=== PATIENT | female | born 1945 | race Caucasian/White ===

== ENCOUNTER 2020-03-11 09:03 | Inpatient (IN) | payer MEDICARE, OTHER ==
[2020-03-11] VITALS (15 sets, daily range): BP systolic 117–154; BP diastolic 57–74
[~2020-03-11] VITALS: Ht 165.1 cm; Wt 68.0 kg
[~2020-03-11 09:03] MED LIST: ceFAZolin sod 1 GM in NS 55 ML IVPB ONE
[2020-03-11] MEDS ORDERED: LR 1000ml 1,000 ML IVLG SCH (11:41)
[2020-03-11] MEDS ORDERED: Labetalol 5mg/ml 20ml vial IV PRN (11:45)
[2020-03-11] MEDS ORDERED: Hydromorphone 0.5mg/0.5ml inj IVP PRN ×2 (11:45→17:15)
[2020-03-11] MEDS ORDERED: DiphenhydrAMINE 50mg/ml Inj IVP PRN ×2 (11:45→17:15)
[2020-03-11] MEDS ORDERED: Meperidine 25mg/0.5ml Inj (FOR RIGORS ONLY) IV PRN (11:45)
[2020-03-11] MEDS ORDERED: Atropine Sulfate 0.4mg/ml inj IVP PRN (11:45)
[2020-03-11] MEDS ORDERED: fentaNYL 100 mcg/2 mL IV PRN (11:45)
[2020-03-11] MEDS ORDERED: oxyCODONE HCL/Acetaminophen 5/325mg ORAL PRN (11:45)
[2020-03-11] MEDS ORDERED: Metoclopramide 10mg/2ml Inj IVP PRN (11:45)
[2020-03-11] MEDS ORDERED: LORazepam Inj 2mg/ml 1ml IV PRN ×2 (11:45→17:45)
[2020-03-11] MEDS ORDERED: HYDROcodone/Acetamin 5/325 tab ORAL PRN (11:45)
[2020-03-11] MEDS ORDERED: Ketorolac 30mg Inj IV PRN ×2 (11:45)
[2020-03-11] MEDS ORDERED: Midazolam 2mg/2ml Inj IVP PRN (11:45)
[2020-03-11] MEDS ORDERED: HYDROcodone/Acetamin 7.5/325 tab ORAL PRN (11:45)
[2020-03-11] MEDS ORDERED: Acetaminophen (Non formulary) 100 ML IV ONE (11:45)
--- NOTE | 2020-03-11 11:56 | Pre-Procedure Note/Attestation ---
Pre-Procedure Note/Attestation Complete Prior to Procedure Planned Procedure: not applicable Procedure Narrative: partial cystectomy, cystoscopy Indications for Procedure Pre-Operative Diagnosis: colovesical fistulae Attestation I attest that I discussed the nature of the procedure; its benefits; risks and complications; and alternatives (and the risks and benefits of such alternatives ), prior to the procedure, with the patient (or the patient's legal electroplating sales representative). I attest that, if there was a reasonable possibility of needing a blood transfusion, the patient (or the patient's legal electroplating sales representative) was given the [facility] standardized written summary, pursuant to the [place] Blood Safety Act ([place] Health and Safety Code # 1645, as amended). I attest that I re-evaluated the patient just prior to the surgery and that there has been no change in the patient's H&P, except as documented below: Rodríguez Ferguson MD Mar 11, 2020 11:56
--- NOTE | 2020-03-11 12:01 | Brief Operative Note ---
Immediate Post Operative Note Operative Note Pre-op Diagnosis: colovesical fistulae Procedure: partial cystectomy Post-op Diagnosis: same Post-op Diagnosis: same as pre-op Surgeon: andrés ferguson Flying Shear Operator: kate castano Anesthesia: general Specimen: none Complications: none Condition: stable Fluids: 1000 Estimated Blood Loss: minimal Implant(s) used?: No Rodríguez Ferguson MD Mar 11, 2020 12:01
--- NOTE | 2020-03-11 12:07 | Immediate Post-Op Evaluation ---
Immediate Post-Op Evalulation Immediate Post-Op Evalulation Procedure: Partial Cystectomy, Colon Resection Date of Evaluation: Mar 11, 2020 Time of Evaluation: 13:29 IV Fluids: 900 LR Blood Products: 0 Estimated Blood Loss: 75 Urinary Output: 100 Blood Pressure Systolic: 148 Blood Pressure Diastolic: 72 Pulse Rate: 75 Respiratory Rate: 16 O2 Sat by Pulse Oximetry: 100 Temperature (Fahrenheit): 98.3 Pain Score (1-10): 2 Nausea: No Vomiting: No Complications 0 Patient Status: awake, reacts, patent, extubated, none Hydration Status: adequate Dru Gram Ancef IV Given Within 1 Hr of Incision: Yes Time Given: 13:01 Shimon Muñiz MD Mar 11, 2020 12:07
[2020-03-11] MEDS ORDERED: Sodium Chloride 10ml vial INJ ONE (12:15)
[2020-03-11] MEDS ORDERED: Lidocaine 1% MPF 10mg/ml 5ml ONE ×2 (12:15→12:43)
[2020-03-11] MEDS ORDERED: fentaNYL 100 mcg/2 mL IV ONE (12:20)
[2020-03-11] MEDS ORDERED: Midazolam 2mg/2ml Inj ONE (12:20)
[2020-03-11] MEDS ORDERED: Rocuronium Bromide 100mg/10ml Inj IV ONE (12:30)
[2020-03-11] MEDS ORDERED: Sterile Water Irrig 1000ml IRRIG ONE (12:30)
[2020-03-11] MEDS ORDERED: ProvayBlue 5mg/ml 10ml amp INJ ONE (12:30)
[2020-03-11] MEDS ORDERED: LR 1000ml ONE (12:30)
[2020-03-11] MEDS ORDERED: NS Irrig 4000ml IRRIG ONE ×2 (12:30→14:31)
--- NOTE | 2020-03-11 12:41 | Anethesia Preoperative Eval ---
Anesthesia Pre-op PMH/ROS General Date of Evaluation: Mar 11, 2020 Time of Evaluation: 12:26 Anesthesiologist: Antonino ASA Score: ASA 3 Mallampati Score Class I : Soft palate, uvula, fauces, pillars visible Class II: Soft palate, uvula, fauces visible Class III: Soft palate, base of uvula visible Class IV: Only hard plate visible Mallampati Classification: Class II Surgeon: Phyllis Diagnosis: ABD Pain Surgical Procedure: Partial Cystectomy, Colon Resection Anesthesia History: none Family History: no anesthesia problems Allergies: Coded Allergies: No Known Allergies (Unverified , 03/10/20) Medications: see eMAR Patient NPO?: Yes Past Medical History Cardiovascular: Reports: HTN Gastrointestinal/Genitourinary: Reports: other - Gastric Sx, UTI HEENT: Reports: cataract (L), cataract (R) Musculoskeletal/Integumentary: Reports: OA PSxH Narrative: Umbilical Hernia Repair Anesthesia Pre-op Phys. Exam Physician Exam Vital Signs Date Time Temp Pulse Resp B/P (MAP) Pulse Ox O2 Delivery O2 Flow Rate FiO2 03/11/20 12:48 97.8 63 18 141/73 (95) 96 Constitutional: NAD Neurologic: CN 2-12 intact Cardiovascular: RRR Respiratory: CTA Gastrointestinal: S/NT/ND Airway Exam Mallampati Score: Class II MO: full ROM: limited Teeth: missing, intact Anesthesia Pre-op A/P Risk Assessment & Plan Assessment: ASA 3 Plan: GA, SED, GlideScope Status Change Before Surgery: No Pre-Antibiotics Dru Gram Ancef IV Given Within 1 Hr of Incision: Yes Time Given: 13:01 Shimon Muñiz MD Mar 11, 2020 12:41
--- NOTE | 2020-03-11 12:45 | NUR ---
Unable to start IVF. Dr. Muñiz in surgery notified.
--- NOTE | 2020-03-11 13:06 | Pre-Procedure Note/Attestation ---
Pre-Procedure Note/Attestation Complete Prior to Procedure Planned Procedure: not applicable Procedure Narrative: colectomy Indications for Procedure Pre-Operative Diagnosis: colon fistula Attestation I attest that I discussed the nature of the procedure; its benefits; risks and complications; and alternatives (and the risks and benefits of such alternatives ), prior to the procedure, with the patient (or the patient's legal textile machinery sales representative). I attest that, if there was a reasonable possibility of needing a blood transfusion, the patient (or the patient's legal textile machinery sales representative) was given the [facility] standardized written summary, pursuant to the [place] Blood Safety Act ([place] Health and Safety Code # 1645, as amended). I attest that I re-evaluated the patient just prior to the surgery and that there has been no change in the patient's H&P, except as documented below: Rafiq Rodriguez Mar 11, 2020 13:06
[2020-03-11] MEDS ORDERED: Lidocaine 1% Plain 30 ml INJ ONE ×2 (13:07→14:33)
[2020-03-11] MEDS ORDERED: Glycopyrrolate 0.2mg/ml 1ml Vial ONE (14:47)
[2020-03-11] MEDS ORDERED: Neostigmine 1mg/ml 10ml Inj ONE (14:47)
[2020-03-11] MEDS ORDERED: ASPIR 8181 MG ORAL (15:03)
[2020-03-11] MEDS ORDERED: TOVIAZ8 MG PO (15:05)
[2020-03-11] MEDS ORDERED: KLONOPIN0.5 MG ORAL (15:05)
[2020-03-11] MEDS ORDERED: SYNTHROID100 MCG ORAL (15:06)
[2020-03-11] MEDS ORDERED: KEPPRA1000 MG ORAL (15:07)
[2020-03-11] MEDS ORDERED: NITROFURANTOIN100 M2 ORAL (15:08)
[2020-03-11] MEDS ORDERED: AMBIEN10 MG ORAL (15:08)
--- NOTE | 2020-03-11 17:00 | NUR ---
NURSE NOTES: pt arrived to the via hospital bed escorted by surgery nurse Keysha Palomino RN, pt in stable condition A/Ox4 breaths regular un labored on room Vitals BP 141/74 HR 74 O2sat 98 T 97.7
--- NOTE | 2020-03-11 17:13 | Brief Operative Note ---
Immediate Post Operative Note Operative Note Pre-op Diagnosis: colon fistula Procedure: 1 exploratory laparotomy 2 sigmoid colectomy 3 open lyse adhesions for partial omentectomy 5 mobilization of splenic flexure Post-op Diagnosis: same as pre-op Surgeon: Rafiq Rodriguez MD Additional Surgeons: Rodríguez jain Anesthesia: general Specimen: yes Complications: none Condition: stable Fluids: See records Estimated Blood Loss: minimal Drains: none Implant(s) used?: No Rafiq Rodriugez Mar 11, 2020 17:13
[2020-03-11] MEDS: HYDROmorphone 1mg/ml Carpuject IVP PRN (18:09)
[2020-03-11] MEDS: D5 1/2NS w/KCl 20mEq 1,000 ML IV SCH (18:10)
--- NOTE | 2020-03-11 18:30 | NUR ---
NURSE NOTES: Pt remains stable s/p surgery ,family by the bedside , PT has IVF on the R EJ 18G with IVF, patent asymptomatic pt has a ABD dressing clean intact no s/o of bleeding , and peripad dry, no bleeding , belongings verified and signed by pt, pt home meds given to son, and pt's money given to son, side rails padded for seizure precaution, bed in low locked position, call light with in Reach, will continue to monitor
[2020-03-11] MEDS: Piperacillin/Tazobactam 3.375 GM in NS 110 ML IVPB SCH (19:30)
--- NOTE | 2020-03-11 19:55 | NUR ---
HAND-OFF: Report given to José ROLDAN.
--- NOTE | 2020-03-11 23:00 | Operative Note - Dictated ---
DATE OF OPERATION: 03/11/2020 PREOPERATIVE DIAGNOSES: Colovesicular fistula, history of sigmoid diverticulitis. POSTOPERATIVE DIAGNOSES: Colovesicular fistula, sigmoid diverticula. OPERATION PERFORMED: 1. Exploratory laparotomy. 2. Sigmoid colectomy. 3. Open lysis of adhesions. 4. Partial omentectomy. 5. Mobilization of splenic flexure. ATTENDING SURGEON: Rafiq Rodriguez MD. ADDITIONAL SURGEON: Dr. Rodríguez Ferguson who performed the partial cystectomy. ANESTHESIOLOGIST: Shimon Muñiz M.D. ANESTHESIA: General GETA. ESTIMATED BLOOD LOSS: Minimal. IV FLUIDS: Please see anesthesia records. COMPLICATIONS: None. DRAINS: None. COUNTS: Sponge and needle count correct x2. WOUND CLASSIFICATION: Class 3. SPECIMENS: 1. Sigmoid colon. 2. Omentum. 3. Donuts from EEA anastomosis. IMPLANTS: None. INDICATIONS FOR PROCEDURE: This is a 74-year-old female who was identified to have sigmoid diverticula as well as history of potential perforated with a colovesicular fistula. She was scoped by Dr. Rodríguez Ferguson, which identified a fistula in the bladder wall and patient was symptomatic with UTIs, pain, discomfort, and therefore was recommended for a resection with repair of fistula, which was scheduled and planned for 03/11/2020. Risks, benefits, alternatives discussed with patient and family in detail and consent was obtained. Dr. Rodriguez, myself was planned for colectomy, entry in the abdomen given patient's multiple prior incisions, lysis of adhesions, and colonic portion of the procedure and Dr. Rodríguez Ferguson planned for repair and resection of the bladder as necessary for the fistula. Consent was obtained. Patient was scheduled for 03/11/2020. OPERATIVE NOTE: Patient was taken to the operating room and placed on the operating table in supine position with bilateral arms out. Preoperative time-out taken to identify patient, procedure, operative staff, and surgical staff. General anesthesia was induced. Patient was intubated. The abdomen was clipped, prepped, and draped in standard surgical fashion. The patient was placed in lithotomy position prior to draping. A Wooten catheter was inserted using standard sterile technique. Patient was identified to have multiple prior abdominal incisions and scars. Decision was made to proceed with great caution. Midline incision was made from what was believed to be the prior umbilicus down to the pubic symphysis. Incision was carried down through subcutaneous tissue and to the fascia with electrocautery. The capsule was incised and the abdomen was entered. Significant adhesions were identified and open lysis of adhesions were performed to allow the omentum and bowel to dissect away from the abdominal wall. Once this was completed, the omentum that was fairly matted to the anterior abdominal wall resected with Thunderbeat energy device. This partial omentectomy was sent to pathology for review. The small bowel was then positioned to the right upper quadrant. Bookwalter retractor was placed and the sigmoid colon was identified. The descending colon was otherwise healthy, but at the level of the sigmoid colon, there was diverticula noticed and dense area of scarring and fibrosis in the left pelvic brim. This was abutting the dome of the bladder, which was identified on CT scan prior to likely contained colovesicular fistula, which was also confirmed via cystoscopy by Dr. Ferguson. At this time, the white line of Toldt was incised and released. The sigmoid colon was mobilized down to its mesenteric pedicle. Dissection was carried down towards the peritoneal reflection inferiorly where the colon at the peritoneal reflection was otherwise healthy. With the assistance of Dr. Ferguson, the fistula was divided from the bowel and dissected down and the bowel was released from the dome of the bladder. A partial cystectomy and repair of dome bladder was completed by Dr. Ferguson. Please see his operative report. Once this portion of procedure was completed, a resection was indicated and recommended. The proximal portion of the sigmoid colon was identified without diverticula and healthy. Window was made in the mesentery. A linear 55 mm stapler was used and the bowel was divided in the descending colon. The mesentery was divided using Thunderbeat energy device down towards the peritoneal reflection. Ureters were identified and protected throughout the procedure. At the peritoneal reflection, the bowel was circumferentially dissected out and divided and a portion of healthy viable bowel edges with a linear 55 mm stapler. The specimen of sigmoid colon was sent to pathology for review. For improved mobilization and tension-free anastomosis, the towards the splenic flexure and most of it was mobilized. Once enough mobility was identified, we were able to comfortably bring it for a primary anastomosis. The proximal staple line of descending colon was excised and a 20 mm Anvil EEA stapler was inserted. A pursestring suture was placed and angle prepared. I myself went down through the anus and the anus was inspected. Digital rectal exam prior and appropriate for stapler, but did have some increased sphincter tone. A 20 mm EEA stapler was inserted through the anus and brought out through the peritoneal reflection. A N2 anterior side anastomosis was performed without tension or complication. The proximal bowel was held and occluded and air insufflation test performed with water in the pelvis. No leak was identified. At this time, the colon was desufflated and the pelvis irrigated and cleansed. Anastomosis was visualized and noted to be healthy viable without complication. At this time, we began the conclusion of our procedure. The retractors removed out of place. The abdomen inspected. Sponge and needle count correct identified and we proceeded to our closure. The fascia was reapproximated using #0 PDS running suture. Subcutaneous tissues was cleansed. Hemostasis obtained and reapproximated at the skin level using surgical bernice. Dressings were applied. Patient tolerated the procedure well, was extubated, and taken to postanesthetic care unit in stable condition. Rafiq Rodriguez M.D. DR: CLIFFORD JOB#: [id number] CC:
[2020-03-12] VITALS: BP 121/55
[2020-03-12] MEDS: D5 1/2NS w/KCl 20mEq 1,000 ML IV SCH ×2 (03:30→15:23)
[2020-03-12 04:00] VITALS: BP 110/58
[2020-03-12] MEDS: Piperacillin/Tazobactam 3.375 GM in NS 110 ML IVPB SCH ×3 (05:13→21:22)
[2020-03-12 05:26] LABS: BASOPHILS % (AUTO) 0.3 % (0.0-2.0); HEMOGLOBIN 10.7 G/DL (12.0-16.0); LYMPHOCYTES % (AUTO) 11.3 % (20.0-45.0); MEAN CORPUSCULAR VOLUME 99 FL (80-99); NEUTROPHILS % (AUTO) 80.4 % (45.0-75.0); PLATELET COUNT 155 K/UL (150-450); RED BLOOD COUNT 3.24 M/UL (4.20-5.40); RED CELL DISTRIBUTION WIDTH 12.5 % (11.6-14.8); WHITE BLOOD COUNT 10.1 K/UL (4.8-10.8)
[2020-03-12 05:28] LABS: ANION GAP 6 mmol/L (5-15); BLOOD UREA NITROGEN 12 mg/dL (7-18); CALCIUM 7.5 MG/DL (8.5-10.1); CARBON DIOXIDE 25 MMOL/L (21-32); CHLORIDE 113 MMOL/L (98-107); CREATININE 0.8 MG/DL (0.55-1.30); POTASSIUM 3.7 MMOL/L (3.5-5.1); SODIUM 144 MMOL/L (136-145)
[2020-03-12] MEDS: HYDROmorphone 1mg/ml Carpuject IVP PRN ×3 (06:54→21:23)
--- NOTE | 2020-03-12 07:07 | NUR ---
NURSE NOTES: Report received from José ROLDAN, rounds made. Patient sleeping in semi-fowlers position in bed. No distress on RA, respirations even/unlabored. Zosyn IV and IVF (D5 1/2 +20 KCL at 100 ml) infusing to right jugular, site asymptomatic. Bilateral SCDs on. FC yellow/cloudy output noted, will notify MD. Abdominal dressing CDI. Call light in reach, bed in lowest position, will continue to monitor.
--- NOTE | 2020-03-12 07:40 | NUR ---
HAND-OFF: Report given to YULI Acosta. Patient in stable condition.
[2020-03-12 07:56] VITALS: BP 113/58
--- NOTE | 2020-03-12 08:30 | NUR ---
NURSE NOTES: Patient up ambulating with RN in halls x2, gait steady, slow. Denies dizziness/SOB/NV/pain. Dr. Ferguson notified and observed FC output at bedside, urine y/cl in tubing, slightly cloudiness in drainage bag. IS provided/demonstrated/instructed on, patient inspires 1000 ml, returned demonstration correctly, will continue to encourage.
--- NOTE | 2020-03-12 08:34 | 48 Hour Post Anesthesia Eval ---
Post Anesthesia Evaluation Procedure: Partial Cystectomy, Colon Resection Date of Evaluation: Mar 12, 2020 Time of Evaluation: 08:33 Blood Pressure Systolic: 128 0: 72 Pulse Rate: 68 Respiratory Rate: 18 Temperature (Fahrenheit): 97.7 O2 Sat by Pulse Oximetry: 98 Airway: patent Nausea: No Vomiting: No Pain Intensity: 2 Hydration Status: adequate Cardiopulmonary Status: stable Mental Status/LOC: patient returned to baseline Follow-up Care/Observations: n/a Post-Anesthesia Complications: none Follow-up care needed: N/A John Ferraro MD Mar 12, 2020 08:34
[2020-03-12] MEDS ORDERED: levETIRAcetam 1,000mg/NS100ml 100 ML IVPB SCH (09:00)
[2020-03-12] MEDS ORDERED: Heparin 5000 units/ml inj SUBQ SCH (11:00)
--- NOTE | 2020-03-12 11:10 | NUR ---
P.T Note: P.T evaluation completed and tx initiated. Please refer to P.T evaluation for current functional status.
[2020-03-12 11:56] VITALS: BP 115/59
[2020-03-12] MEDS: clonazePAM 0.5mg tab ORAL SCH ×2 (12:33→18:43)
[2020-03-12] MEDS: Heparin 5000 units/ml inj SUBQ SCH ×2 (12:33→21:22)
--- NOTE | 2020-03-12 13:02 | Surgery Progress Note ---
Surgery Progress Note Subjective Procedure Performed 1 exploratory laparotomy 2 sigmoid colectomy 3 open lyse adhesions for partial omentectomy 5 mobilization of splenic flexure Symptoms: improved, pain decreased Objective Last 24 Hour Vital Signs Date Time Temp Pulse Resp B/P (MAP) Pulse Ox O2 Delivery O2 Flow Rate FiO2 03/12/20 11:56 98.4 75 18 115/59 (77) 97 03/12/20 08:34 68 18 98 03/12/20 07:56 98.9 76 18 113/58 (76) 96 03/12/20 04:00 98.6 79 17 110/58 (75) 96 03/12/20 00:00 98.6 83 16 121/55 (77) 95 03/11/20 21:00 Room Air 03/11/20 20:00 98.8 79 18 117/57 (77) 95 03/11/20 18:21 Nasal Cannula 3.0 03/11/20 18:00 97.8 74 21 138/72 (94) 97 03/11/20 17:30 97.1 74 19 141/73 (95) 97 03/11/20 17:00 97.9 66 18 135/66 100 Nasal Cannula 3 03/11/20 16:58 97.7 71 20 141/74 (96) 97 03/11/20 16:45 63 17 137/64 100 Nasal Cannula 3 03/11/20 16:30 67 13 143/68 100 Nasal Cannula 3 03/11/20 16:20 97.9 03/11/20 16:10 68 18 143/66 100 Nasal Cannula 3 03/11/20 15:55 64 12 143/67 100 Nasal Cannula 3 03/11/20 15:40 63 23 146/70 100 Nasal Cannula 3 03/11/20 15:30 67 13 154/73 100 Simple Mask 6 03/11/20 15:20 68 17 153/72 100 Simple Mask 6 03/11/20 15:15 74 16 153/72 100 Simple Mask 6 03/11/20 15:14 75 16 100 03/11/20 15:11 97.9 72 14 148/72 100 Simple Mask 6 I&O Intake and Output 03/11/20 03/12/20 19:00 07:00 Intake Total 1200 ml Output Total 375 ml 600 ml Balance 825 ml -600 ml Intake Oral 0 ml IV Total 1200 ml Output Urine Total 300 ml 600 ml Estimated Blood Loss 75 ml # Voids 1 1 Dressing: dry Wound: clean Cardiovascular: RSR Respiratory: clear Abdomen: soft, non-tender, present bowel sounds Extremities: no edema, no tenderness, no cyanosis Laboratory Tests Test 03/12/20 04:55 White Blood Count 10.1 K/UL (4.8-10.8) Red Blood Count 3.24 M/UL (4.20-5.40) L Hemoglobin 10.7 G/DL (12.0-16.0) L Hematocrit 32.0 % (37.0-47.0) L Mean Corpuscular Volume 99 FL (80-99) Mean Corpuscular Hemoglobin 33.0 PG (27.0-31.0) H Mean Corpuscular Hemoglobin Concent 33.4 G/DL (32.0-36.0) Red Cell Distribution Width 12.5 % (11.6-14.8) Platelet Count 155 K/UL (150-450) Mean Platelet Volume 8.5 FL (6.5-10.1) Neutrophils (%) (Auto) 80.4 % (45.0-75.0) H Lymphocytes (%) (Auto) 11.3 % (20.0-45.0) L Monocytes (%) (Auto) 8.0 % (1.0-10.0) Eosinophils (%) (Auto) 0.0 % (0.0-3.0) Basophils (%) (Auto) 0.3 % (0.0-2.0) Sodium Level 144 MMOL/L (136-145) Potassium Level 3.7 MMOL/L (3.5-5.1) Chloride Level 113 MMOL/L (98-107) H Carbon Dioxide Level 25 MMOL/L (21-32) Anion Gap 6 mmol/L (5-15) Blood Urea Nitrogen 12 mg/dL (7-18) Creatinine 0.8 MG/DL (0.55-1.30) Estimat Glomerular Filtration Rate > 60 mL/min (>60) Glucose Level 169 MG/DL (74-106) H Calcium Level 7.5 MG/DL (8.5-10.1) L Plan Problems: (1) Colonic fistula Assessment & Plan: doing well post op ambulatory miller to stay in given surgery npo iv fluids rx as written incentive spirometry ambulate and out of bed Benyamini,Rafiq Mar 12, 2020 13:02
--- NOTE | 2020-03-12 13:07 | NUR ---
CASE MANAGEMENT: INITIAL REVIEW 74YR OLD FEMALE HERE FOR SCHEDULE SURGERY CC: ABD PAIN SI:COLOVESICAL FISTULAE 97.8 63 18 141/73 96% ON RA CL-113 BG 169 CA+ 7.5 IS:IN SURGERY NOW PARTIAL CYSTECTOMY/ COLON RESECTION IV ZOSYN TID IV D5@100ML/HR HEPARIN SQ BID \: 3E MED SURG UNIT DCP:HOME WHEN STABLE PLAN: NPO IV HYDRATION SCD'S AMBULATE WHEN TOLERATED AND PERMITTED PAIN CONTROL ENCOURAGE IS USES PT EVAL AND THERAPY RECOMMENDATION
--- NOTE | 2020-03-12 13:44 | Operative Note - Dictated ---
DATE OF OPERATION: 03/11/2020 PREOPERATIVE DIAGNOSIS: Colovesical fistula. POSTOPERATIVE DIAGNOSIS: Colovesical fistula. OPERATION: Partial cystectomy. OPERATED BY: Rodríguez Ferguson MD. SAMPLE HAND: Dr. Rodriguez. FINDINGS: Fistula between the sigmoid colon and dome of the bladder. INDICATIONS FOR SURGERY: The patient had recurrent UTIs. She underwent a CT urogram that showed colovesical fistula. Treatment options were explained to her in great length. She had several consultations with different physicians. She understands all potential complications and signed a consent. DESCRIPTION OF PROCEDURE: Brought to the operating room, placed in supine position, prepped and draped in standard fashion. Wooten catheter was placed serially. Midline laparotomy incision was made by Dr. Rodriguez, who first proceeded with mobilization of sigmoid and rectum and finally the fistula. After he exposed the bladder, bladder was carefully inspected and filled with normal saline. Small areas of the tissue was resected and reapproximated with 2-0 Vicryl sutures. Wooten was left indwelling. Dr. Rodriguez proceeded with resection of the sigmoid and reapproximation of the sigmoid colon end to end. The patient tolerated the procedure well. ESTIMATED BLOOD LOSS: Approximately 50 mL. Rodríguez Ferguson M.D. DR: ZACHARIAH JOB#: [id number] CC:
--- NOTE | 2020-03-12 14:00 | NUR ---
NURSE NOTES: Dr. Rodriguez and Dr. Mendez notified at bedside of FC urine characteristics (light jerad, cloudy in drainage bag, clear in tubing). No further orders.
--- NOTE | 2020-03-12 14:29 | Consultation ---
DATE OF CONSULTATION: 03/12/2020 INTERNAL MEDICINE CONSULTATION CONSULTING PHYSICIAN: Arthur Mendez MD. HISTORY OF PRESENT ILLNESS: This is a 74-year-old female, who was admitted to the hospital for cystectomy by Dr. Rodríguez Ferguson. The patient underwent successful partial cystectomy, laparotomy, sigmoid colectomy, open lysis of adhesions, partial omentectomy and mobilization of splenic flexure by Dr. Rodriguez and Dr. Rodríguez Ferguson. Currently, she states she is feeling well. She is sitting up. She is currently still NPO. PAST MEDICAL HISTORY: Notable for seizure disorder, hypertension, depression, previous hernia repair, and lithotripsy. HOME MEDICATIONS: Include aspirin, Ambien, Topamax, clonazepam, vitamin D3, Colace, tramadol, Synthroid, and Aricept. SOCIAL HISTORY: Denies alcohol or tobacco usage. REVIEW OF SYSTEMS: Denies any headaches, hematemesis, melena, or hematochezia. PHYSICAL EXAMINATION: GENERAL: Reveals a 74-year-old female. VITAL SIGNS: HEENT: Unremarkable. LUNGS: Clear breath sounds bilaterally. ABDOMEN: Soft. I do not hear any bowel sounds. NEUROLOGIC: Nonfocal. LABORATORY DATA: Lab testing shows hemoglobin 10.7, otherwise normal CBC and BMP. Glucose of 169. COVID-19 PCR testing obtained on 03/09/2020 is negative. IMPRESSION: 1. Postop day #1 status post partial cystectomy, lysis of adhesions, and sigmoid colectomy. 2. History of hypertension. 3. History of seizures. DISCUSSION: Currently, the patient is NPO. I have reviewed her home medications and I will initiate Klonopin as well as Keppra and Synthroid. Hold remainder of medications. We will follow as account receivable associate and liquor gallery operator. We will follow carefully. Arthur Mendez M.D. DR: TETO JOB#: [id number] CC:
[2020-03-12 16:00] VITALS: BP 112/69
--- NOTE | 2020-03-12 16:00 | NUR ---
NURSE NOTES: Patient remains NPO, provided ice chips and oral swabs, twice this shift. Tolerated well. Patient up with RN ambulated in halls and with PT. Patient up to chair throughout shift. Son at bedside during visiting hours, translated POC, IS use, ankle rotations, medications.
--- NOTE | 2020-03-12 19:30 | NUR ---
NURSE NOTES: Received report from YULI Acosta. Discontinued IV line in jugular vein. Started new line in the RFA 22 gauge. Patient tolerated procedure well. Wooten catheter draining well, jerad urine noted. Patient denies any pain as of the moment.
--- NOTE | 2020-03-12 19:43 | NUR ---
HAND-OFF: Report given to José ROLDAN, rounds made. Patient stable. Endorsed right external jugular IV site leaking.
[2020-03-12 20:00] VITALS: BP 113/58
[2020-03-12] MEDS: levETIRAcetam 1,000mg/NS100ml 100 ML IVPB SCH (21:19)
[2020-03-13] VITALS (7 sets, daily range): BP systolic 105–129; BP diastolic 56–69
[2020-03-13] MEDS: D5 1/2NS w/KCl 20mEq 1,000 ML IV SCH ×3 (00:30→20:44)
[2020-03-13] MEDS: clonazePAM 0.5mg tab ORAL SCH ×5 (05:20→23:17)
[2020-03-13] MEDS: Piperacillin/Tazobactam 3.375 GM in NS 110 ML IVPB SCH ×3 (05:20→21:40)
[2020-03-13 05:53] LABS: BASOPHILS % (AUTO) 0.6 % (0.0-2.0); EOSINOPHILS % (AUTO) 0.7 % (0.0-3.0); HEMATOCRIT 28.1 % (37.0-47.0); HEMOGLOBIN 8.9 G/DL (12.0-16.0); LYMPHOCYTES % (AUTO) 25.3 % (20.0-45.0); MEAN CORPUSCULAR VOLUME 100 FL (80-99); MONOCYTES % (AUTO) 8.1 % (1.0-10.0); NEUTROPHILS % (AUTO) 65.3 % (45.0-75.0); PLATELET COUNT 126 K/UL (150-450); RED BLOOD COUNT 2.81 M/UL (4.20-5.40); RED CELL DISTRIBUTION WIDTH 12.9 % (11.6-14.8); WHITE BLOOD COUNT 5.5 K/UL (4.8-10.8)
[2020-03-13 06:49] LABS: ANION GAP 4 mmol/L (5-15); BLOOD UREA NITROGEN 9 mg/dL (7-18); CALCIUM 7.6 MG/DL (8.5-10.1); CARBON DIOXIDE 29 MMOL/L (21-32); CHLORIDE 112 MMOL/L (98-107); CREATININE 0.6 MG/DL (0.55-1.30); POTASSIUM 3.7 MMOL/L (3.5-5.1); SODIUM 145 MMOL/L (136-145)
--- NOTE | 2020-03-13 07:17 | NUR ---
NURSE NOTES: Report received from José ROLDAN, rounds made. Patient AOX4, slightly anxious, (asks a lot of the same questions regarding when FC/IVF will be DC etc, reinforced POC) in semi-fowlers position in bed. No distress on RA, respirations even/unlabored. Zosyn IV and IVF (D5 1/2 +20 KCL at 100 ml) infusing to RFA, site asymptomatic. Bilateral SCDs on. FC yellow/cl output noted. Abdominal dressing CDI. Bowel sounds present to LUQ. Complains of abdominal pain 05/07, will medicate. Encouraged IS and ankle rotation, patient compliant, demonstrates correctly. Call light in reach, bed in lowest position, will continue to monitor. Addendum: 03/13/20 at 0756 by Karla Mccray RN Remains NPO, will provide oral care.
--- NOTE | 2020-03-13 07:25 | NUR ---
HAND-OFF: Report given to YULI Acosta. Patient in stable condition
[2020-03-13] MEDS: HYDROmorphone 1mg/ml Carpuject IVP PRN ×2 (07:57→20:44)
--- NOTE | 2020-03-13 09:18 | NUR ---
NURSE NOTES: Notified Dr. Rodriguez of platelets 126. Orders for okay to administer Heparin SQ.
[2020-03-13] MEDS: Heparin 5000 units/ml inj SUBQ SCH ×2 (09:32→20:57)
[2020-03-13] MEDS: levETIRAcetam 1,000mg/NS100ml 100 ML IVPB SCH ×2 (10:14→20:44)
--- NOTE | 2020-03-13 13:01 | NUR ---
CASE MANAGEMENT: REVIEW 03/13/20 SI:S/P PARTIAL CYSTECTOMY COLOVESICAL FISTULAE 98.6 78 18 129/67 99% ON RA H/H 8.9/28.1 PLT 126 CA+7.6 IS:IV ZOSYN TID IV D5@100ML/HR HEPARIN SQ BID IV SYNTHROID QD IV KEPPRA BID IV DILAUDID Q3HR/PRN \: 3E MED SURG UNIT DCP:HOME WHEN STABLE PLAN: DC GUALLPA AMBULATE TOLERATED WITH ASSISTANCE NPO WITH ICE CHIPS Q6HRS
--- NOTE | 2020-03-13 14:12 | Pulmonology Progress Note ---
Subjective Interval Events: None new Constitutional: Reports: no symptoms HEENT: Repors: no symptoms Respiratory: Reports: no symptoms Cardiovascular: Reports: no symptoms Gastrointestinal/Abdominal: Reports: no symptoms Allergies: Coded Allergies: No Known Allergies (Unverified , 03/10/20) Objective Last 24 Hour Vital Signs Date Time Temp Pulse Resp B/P (MAP) Pulse Ox O2 Delivery O2 Flow Rate FiO2 03/13/20 12:00 98.6 78 18 129/67 (87) 99 03/13/20 12:00 Room Air 03/13/20 09:00 Room Air 03/13/20 07:47 98.6 85 18 105/69 (81) 96 03/13/20 04:00 97.8 82 18 114/56 (75) 97 03/13/20 00:00 98.6 72 18 115/60 (78) 98 03/12/20 21:53 98.9 03/12/20 21:00 Room Air 03/12/20 20:00 98.7 79 18 113/58 (76) 97 03/12/20 16:00 98.9 93 18 112/69 (83) 94 Intake and Output 03/12/20 03/13/20 19:00 07:00 Intake Total 1100 ml 100 ml Output Total 500 ml 500 ml Balance 600 ml -400 ml IV Total 1100 ml 100 ml Output Urine Total 500 ml 500 ml General Appearance: no acute distress HEENT: normocephalic Respiratory: chest wall non-tender, lungs clear Cardiovascular: normal peripheral pulses Abdomen: non distended Microbiology Date/Time Source Procedure Growth Status 03/11/20 12:20 Nasal Nares MRSA Culture - Final NO METHICILLIN RESISTANT STAPH AUREUS... Complete Laboratory Tests 03/13/20 04:45: White Blood Count 5.5, Red Blood Count 2.81L, Hemoglobin 8.9L, Hematocrit 28.1L , Mean Corpuscular Volume 100H, Mean Corpuscular Hemoglobin 31.7H, Mean Corpuscular Hemoglobin Concent 31.7L, Red Cell Distribution Width 12.9, Platelet Count 126L, Mean Platelet Volume 8.8, Neutrophils (%) (Auto) 65.3, Lymphocytes (%) (Auto) 25.3, Monocytes (%) (Auto) 8.1, Eosinophils (%) (Auto) 0.7, Basophils (%) (Auto) 0.6, Sodium Level 145, Potassium Level 3.7, Chloride Level 112H, Carbon Dioxide Level 29, Anion Gap 4L, Blood Urea Nitrogen 9, Creatinine 0.6, Estimat Glomerular Filtration Rate > 60, Glucose Level 109H, Calcium Level 7.6L Current Medications Medications (Trade) Dose Ordered Sig/Dorian Route PRN Reason Start Time Stop Time Status Last Admin Dose Admin Acetaminophen (Tylenol) 650 mg Q6H PRN ORAL T>100.5/TAYLOR 03/11/20 17:15 04/10/20 17:14 Clonazepam (KlonoPIN) 0.5 mg Q6HR ORAL 03/12/20 10:40 03/19/20 10:39 03/13/20 11:54 Dextrose/ Electrolytes 1,000 ml @ 100 mls/hr Q10H IV 03/11/20 18:30 04/10/20 18:29 03/13/20 11:09 Diphenhydramine HCl (Benadryl) 12.5 mg Q6H PRN IVP Itching/Pruritis 03/11/20 17:15 04/10/20 17:14 Heparin Sodium (Porcine) (Heparin 5000 units/ml) 5,000 units EVERY 12 HOURS SUBQ 03/13/20 09:30 04/26/20 09:29 03/13/20 09:32 Hydromorphone HCl (Dilaudid) 0.5 mg Q3H PRN IVP Mild Pain (Pain Scale 1-3) 03/11/20 17:15 03/18/20 17:14 Hydromorphone HCl (Dilaudid) 1 mg Q3H PRN IVP Moderate Pain (Pain Scale 4-6) 03/11/20 17:15 03/18/20 17:14 03/13/20 07:57 Hydromorphone HCl (Dilaudid) 2 mg Q3H PRN IVP Severe Pain (Pain Scale 7-10) 03/11/20 17:15 03/18/20 17:14 Levetiracetam 100 ml @ 400 mls/hr Q12HR IVPB 03/12/20 21:00 06/10/20 20:59 03/13/20 10:14 Levothyroxine Sodium (Synthroid) 50 mcg DAILY IV 03/13/20 09:00 04/12/20 08:59 03/13/20 09:27 Lorazepam (Ativan 2mg/ml 1ml) 1 mg Q4H PRN IV For Anxiety 03/11/20 17:45 03/18/20 17:44 03/11/20 23:29 Ondansetron HCl (Zofran) 4 mg Q6H PRN IVP Nausea & Vomiting 03/11/20 17:15 04/10/20 17:14 Piperacillin Sod/ Tazobactam Sod 3.375 gm/Sodium Chloride 110 ml @ 27.5 mls/hr EVERY 8 HOURS IVPB 03/11/20 19:30 03/18/20 19:29 03/13/20 05:20 Assessment/Plan Assessment/Plan IMPRESSION: 1. Postop day #2 status post partial cystectomy, lysis of adhesions, and sigmoid colectomy. 2. History of hypertension. 3. History of seizures. DISCUSSION: Currently, the patient is NPO. I have reviewed her home medications and I will initiate IV Keppra and Synthroid. Hold remainder of medications. I will follow as laminating machine operator and business info consultant. Moises [place] Omar Syed MD Mar 13, 2020 14:12
--- NOTE | 2020-03-13 19:30 | NUR ---
NURSE NOTES: received report from kaia figueroa. patient is on bed, awake and verbally responsive. with no iv access. noted with bedside commode. with dry and intact dressing on the abdomen. able to walk to the bathroom. denies any pain or discomfort at the moment. reiterated to call and ask for assistance. bed alarm on. bed locked and in lowest position. call light and light button within easy reach. will continue plan of care.
--- NOTE | 2020-03-13 19:35 | NUR ---
HAND-OFF: Report given to Soco ROLDAN, rounds made, patient stable. Endorsed patient has no IV access, attempted to restart x4, unsuccessful.
--- NOTE | 2020-03-13 20:00 | NUR ---
NURSE NOTES: iv re-inserted on the left ac, 22 gauge. intact and patent. connected to iv fluid.
[2020-03-14 04:00] VITALS: BP 121/76
[2020-03-14] MEDS: D5 1/2NS w/KCl 20mEq 1,000 ML IV SCH ×2 (05:42→15:47)
[2020-03-14] MEDS: Piperacillin/Tazobactam 3.375 GM in NS 110 ML IVPB SCH ×3 (05:42→21:21)
[2020-03-14] MEDS: clonazePAM 0.5mg tab ORAL SCH ×4 (05:43→23:21)
[2020-03-14 05:51] LABS: HEMATOCRIT 27.7 % (37.0-47.0); HEMOGLOBIN 8.8 G/DL (12.0-16.0); LYMPHOCYTES % (AUTO) 29.8 % (20.0-45.0); MEAN CORPUSCULAR VOLUME 100 FL (80-99); MONOCYTES % (AUTO) 8.6 % (1.0-10.0); NEUTROPHILS % (AUTO) 57.7 % (45.0-75.0); PLATELET COUNT 125 K/UL (150-450); RED BLOOD COUNT 2.78 M/UL (4.20-5.40); RED CELL DISTRIBUTION WIDTH 12.6 % (11.6-14.8); WHITE BLOOD COUNT 3.9 K/UL (4.8-10.8)
[2020-03-14 06:26] LABS: ALANINE AMINOTRANSFERASE 13 U/L (12-78); ALBUMIN 2.3 G/DL (3.4-5.0); ALBUMIN/GLOBULIN RATIO 0.8 (1.0-2.7); ALKALINE PHOSPHATASE 38 U/L (46-116); ANION GAP 6 mmol/L (5-15); ASPARTATE AMINO TRANSFERASE 15 U/L (15-37); BILIRUBIN,TOTAL 1.1 MG/DL (0.2-1.0); BLOOD UREA NITROGEN 7 mg/dL (7-18); CALCIUM 7.6 MG/DL (8.5-10.1); CARBON DIOXIDE 27 MMOL/L (21-32); CHLORIDE 110 MMOL/L (98-107); CREATININE 0.5 MG/DL (0.55-1.30); POTASSIUM 3.8 MMOL/L (3.5-5.1); SODIUM 143 MMOL/L (136-145)
[2020-03-14 06:29] LABS: BILIRUBIN,DIRECT 0.2 MG/DL (0.0-0.3)
--- NOTE | 2020-03-14 07:12 | NUR ---
NURSE NOTES: Report received from Soco ROLDAN, rounds made. Patient AOX4, getting up to BSC/voids y/cl urine. Remains NPO, ice chips providedNo distress on RA, respirations even/unlabored. Zosyn IV and IVF (D5 1/2 +20 KCL at 100 ml) infusing to LAC, site asymptomatic,wrapped with kerlix. Bilateral SCDs off. Abdominal dressing CDI. Bowel sounds present to LUQ, hypoactive, abdomen soft, non-distended. Denies pain at this time, no NV. Encouraged IS and ankle rotation, patient compliant, demonstrates correctly. Call light in reach, bed in lowest position, will continue to monitor.
--- NOTE | 2020-03-14 07:31 | NUR ---
HAND-OFF: Report given to kaia figueroa.
[2020-03-14 08:00] VITALS: BP 132/61
--- NOTE | 2020-03-14 09:20 | NUR ---
NURSE NOTES: Dr. Rodriguez notified of platelets 125, orders for okay to Heparin. Also that daughter, Nola called inquiring about discharge plans, provided daughter's number.
[2020-03-14] MEDS: Heparin 5000 units/ml inj SUBQ SCH ×2 (09:42→21:00)
[2020-03-14] MEDS: levETIRAcetam 1,000mg/NS100ml 100 ML IVPB SCH ×2 (09:44→20:51)
[2020-03-14 12:00] VITALS: BP 126/73
--- NOTE | 2020-03-14 13:37 | Pulmonology Progress Note ---
Subjective Interval Events: None new Constitutional: Reports: no symptoms HEENT: Repors: no symptoms Respiratory: Reports: no symptoms Cardiovascular: Reports: no symptoms Gastrointestinal/Abdominal: Reports: no symptoms Allergies: Coded Allergies: No Known Allergies (Unverified , 03/10/20) Objective Last 24 Hour Vital Signs Date Time Temp Pulse Resp B/P (MAP) Pulse Ox O2 Delivery O2 Flow Rate FiO2 03/14/20 12:00 97.6 78 18 126/73 (90) 98 03/14/20 09:00 Room Air 03/14/20 08:00 98.3 77 19 132/61 (84) 95 03/14/20 04:00 98.2 71 18 121/76 (91) 97 03/13/20 23:55 98.8 76 20 107/68 (81) 96 03/13/20 21:14 99.4 03/13/20 21:00 Room Air 03/13/20 20:00 99.7 90 18 119/64 (82) 98 03/13/20 16:00 99.4 89 18 118/66 (83) 95 Intake and Output 03/13/20 03/14/20 19:00 07:00 Intake Total 900 ml 1182.5 ml Output Total 1625 ml 1300 ml Balance -725 ml -117.5 ml IV Total 900 ml 1182.5 ml Output Urine Total 1625 ml 1300 ml # Voids 4 General Appearance: no acute distress HEENT: normocephalic Respiratory: chest wall non-tender, lungs clear Cardiovascular: normal peripheral pulses Abdomen: non distended Laboratory Tests 03/14/20 04:50: White Blood Count 3.9L, Red Blood Count 2.78L, Hemoglobin 8.8L, Hematocrit 27.7L , Mean Corpuscular Volume 100H, Mean Corpuscular Hemoglobin 31.7H, Mean Corpuscular Hemoglobin Concent 31.8L, Red Cell Distribution Width 12.6, Platelet Count 125L, Mean Platelet Volume 7.9, Neutrophils (%) (Auto) 57.7, Lymphocytes (%) (Auto) 29.8, Monocytes (%) (Auto) 8.6, Eosinophils (%) (Auto) 3.0, Basophils (%) (Auto) 1.0, Sodium Level 143, Potassium Level 3.8, Chloride Level 110H, Carbon Dioxide Level 27, Anion Gap 6, Blood Urea Nitrogen 7, Creatinine 0.5L, Estimat Glomerular Filtration Rate > 60, Glucose Level 101, Calcium Level 7.6L, Total Bilirubin 1.1H, Direct Bilirubin 0.2, Aspartate Amino Transf (AST/SGOT) 15, Alanine Aminotransferase (ALT/SGPT) 13, Alkaline Phosphatase 38L, Total Protein 5.2L, Albumin 2.3L, Globulin 2.9, Albumin/ Globulin Ratio 0.8L Current Medications Medications (Trade) Dose Ordered Sig/Dorian Route PRN Reason Start Time Stop Time Status Last Admin Dose Admin Acetaminophen (Tylenol) 650 mg Q6H PRN ORAL T>100.5/TAYLOR 03/11/20 17:15 04/10/20 17:14 Clonazepam (KlonoPIN) 0.5 mg Q6HR ORAL 03/12/20 10:40 03/19/20 10:39 03/14/20 12:12 Dextrose/ Electrolytes 1,000 ml @ 100 mls/hr Q10H IV 03/11/20 18:30 04/10/20 18:29 03/14/20 05:42 Diphenhydramine HCl (Benadryl) 12.5 mg Q6H PRN IVP Itching/Pruritis 03/11/20 17:15 04/10/20 17:14 Heparin Sodium (Porcine) (Heparin 5000 units/ml) 5,000 units EVERY 12 HOURS SUBQ 03/14/20 09:30 04/26/20 09:29 03/14/20 09:42 Hydromorphone HCl (Dilaudid) 0.5 mg Q3H PRN IVP Mild Pain (Pain Scale 1-3) 03/11/20 17:15 03/18/20 17:14 Hydromorphone HCl (Dilaudid) 1 mg Q3H PRN IVP Moderate Pain (Pain Scale 4-6) 03/11/20 17:15 03/18/20 17:14 03/13/20 20:44 Hydromorphone HCl (Dilaudid) 2 mg Q3H PRN IVP Severe Pain (Pain Scale 7-10) 03/11/20 17:15 03/18/20 17:14 Levetiracetam 100 ml @ 400 mls/hr Q12HR IVPB 03/12/20 21:00 06/10/20 20:59 03/14/20 09:44 Levothyroxine Sodium (Synthroid) 50 mcg DAILY IV 03/13/20 09:00 04/12/20 08:59 03/14/20 09:43 Lorazepam (Ativan 2mg/ml 1ml) 1 mg Q4H PRN IV For Anxiety 03/11/20 17:45 03/18/20 17:44 03/11/20 23:29 Ondansetron HCl (Zofran) 4 mg Q6H PRN IVP Nausea & Vomiting 03/11/20 17:15 04/10/20 17:14 Piperacillin Sod/ Tazobactam Sod 3.375 gm/Sodium Chloride 110 ml @ 27.5 mls/hr EVERY 8 HOURS IVPB 03/11/20 19:30 03/18/20 19:29 03/14/20 05:42 Assessment/Plan Assessment/Plan IMPRESSION: 1. Postop day #3 status post partial cystectomy, lysis of adhesions, and sigmoid colectomy. 2. History of hypertension. 3. History of seizures. DISCUSSION: Diet per surgery. Continue IV Keppra and Synthroid. Hold remainder of medications. I will follow as passenger barge master and professional builder. Arthur Mendez M.D. Arthur Mendez MD Mar 14, 2020 13:37
[2020-03-14] MEDS ORDERED: NS 500ML ONE (13:46)
[2020-03-14] MEDS ORDERED: Tubing IV Secondary IV ONE (13:46)
[2020-03-14] MEDS: HYDROmorphone 1mg/ml Carpuject IVP PRN (15:49)
[2020-03-14 16:00] VITALS: BP 139/89
--- NOTE | 2020-03-14 16:03 | Surgery Progress Note ---
Surgery Progress Note Subjective Procedure Performed 1 exploratory laparotomy 2 sigmoid colectomy 3 open lyse adhesions for partial omentectomy 5 mobilization of splenic flexure Symptoms: improved, pain decreased Objective Last 24 Hour Vital Signs Date Time Temp Pulse Resp B/P (MAP) Pulse Ox O2 Delivery O2 Flow Rate FiO2 03/14/20 12:00 97.6 78 18 126/73 (90) 98 03/14/20 09:00 Room Air 03/14/20 08:00 98.3 77 19 132/61 (84) 95 03/14/20 04:00 98.2 71 18 121/76 (91) 97 03/13/20 23:55 98.8 76 20 107/68 (81) 96 03/13/20 21:14 99.4 03/13/20 21:00 Room Air 03/13/20 20:00 99.7 90 18 119/64 (82) 98 I&O Intake and Output 03/13/20 03/14/20 19:00 07:00 Intake Total 900 ml 1282.5 ml Output Total 1625 ml 1300 ml Balance -725 ml -17.5 ml IV Total 900 ml 1282.5 ml Output Urine Total 1625 ml 1300 ml # Voids 4 Dressing: dry Wound: clean Cardiovascular: RSR Respiratory: clear Abdomen: soft, non-tender, decreased bowel sounds Extremities: no edema, no tenderness, no cyanosis Laboratory Tests Test 03/14/20 04:50 White Blood Count 3.9 K/UL (4.8-10.8) L Red Blood Count 2.78 M/UL (4.20-5.40) L Hemoglobin 8.8 G/DL (12.0-16.0) L Hematocrit 27.7 % (37.0-47.0) L Mean Corpuscular Volume 100 FL (80-99) H Mean Corpuscular Hemoglobin 31.7 PG (27.0-31.0) H Mean Corpuscular Hemoglobin Concent 31.8 G/DL (32.0-36.0) L Red Cell Distribution Width 12.6 % (11.6-14.8) Platelet Count 125 K/UL (150-450) L Mean Platelet Volume 7.9 FL (6.5-10.1) Neutrophils (%) (Auto) 57.7 % (45.0-75.0) Lymphocytes (%) (Auto) 29.8 % (20.0-45.0) Monocytes (%) (Auto) 8.6 % (1.0-10.0) Eosinophils (%) (Auto) 3.0 % (0.0-3.0) Basophils (%) (Auto) 1.0 % (0.0-2.0) Sodium Level 143 MMOL/L (136-145) Potassium Level 3.8 MMOL/L (3.5-5.1) Chloride Level 110 MMOL/L (98-107) H Carbon Dioxide Level 27 MMOL/L (21-32) Anion Gap 6 mmol/L (5-15) Blood Urea Nitrogen 7 mg/dL (7-18) Creatinine 0.5 MG/DL (0.55-1.30) L Estimat Glomerular Filtration Rate > 60 mL/min (>60) Glucose Level 101 MG/DL (74-106) Calcium Level 7.6 MG/DL (8.5-10.1) L Total Bilirubin 1.1 MG/DL (0.2-1.0) H Direct Bilirubin 0.2 MG/DL (0.0-0.3) Aspartate Amino Transf (AST/SGOT) 15 U/L (15-37) Alanine Aminotransferase (ALT/SGPT) 13 U/L (12-78) Alkaline Phosphatase 38 U/L (46-116) L Total Protein 5.2 G/DL (6.4-8.2) L Albumin 2.3 G/DL (3.4-5.0) L Globulin 2.9 g/dL Albumin/Globulin Ratio 0.8 (1.0-2.7) L Plan Problems: (1) Colonic fistula Assessment & Plan: doing well post op ambulatory miller to stay in given surgery npo iv fluids rx as written incentive spirometry ambulate and out of bed Rafiq Rodriguez Mar 14, 2020 16:03
--- NOTE | 2020-03-14 18:30 | NUR ---
NURSE NOTES: Patient up ambulating in halls with RN (twice), gait slow/steady, denies dizziness/SOB. Up to BSC (hourly), voiding y/cl without difficulty. Dr. Rodriguez notified patient reports she has urge to have BM but does not want to push, not able to pass gas yet, bowel sounds hypoactive in LUQ only, orders for patient not to push , instructed patient, verbalized understanding.
--- NOTE | 2020-03-14 19:03 | NUR ---
HAND-OFF: Report given to Soco ROLDAN, rounds made. Patient stable.
--- NOTE | 2020-03-14 19:10 | NUR ---
NURSE NOTES: Received report from kaia figueroa. patient is awake on bed. on room air. no sob. with iv line on the left ac wrapped with kerlix running d5 1/2 ns with kcl 20 meq @ 100 ml/hr. with bedside commode. scd's off. denies any pain or discomfort at the moment. reiterated to call and ask for assistance. call light and light button within easy reach. will continue plan of care.
[2020-03-14 20:00] VITALS: BP 18/76
[2020-03-15] VITALS (9 sets, daily range): BP systolic 112–143; BP diastolic 63–92
[2020-03-15] MEDS: HYDROmorphone 1mg/ml Carpuject IVP PRN ×2 (01:38→11:05)
[2020-03-15] MEDS: D5 1/2NS w/KCl 20mEq 1,000 ML IV SCH ×3 (01:38→13:13)
[2020-03-15] MEDS: clonazePAM 0.5mg tab ORAL SCH ×4 (05:03→23:48)
[2020-03-15] MEDS: Piperacillin/Tazobactam 3.375 GM in NS 110 ML IVPB SCH (05:03)
[2020-03-15 06:34] LABS: BASOPHILS % (AUTO) 1.1 % (0.0-2.0); EOSINOPHILS % (AUTO) 4.8 % (0.0-3.0); HEMOGLOBIN 9.3 G/DL (12.0-16.0); LYMPHOCYTES % (AUTO) 35.1 % (20.0-45.0); MEAN CORPUSCULAR VOLUME 100 FL (80-99); MONOCYTES % (AUTO) 6.2 % (1.0-10.0); NEUTROPHILS % (AUTO) 52.9 % (45.0-75.0); PLATELET COUNT 158 K/UL (150-450); RED CELL DISTRIBUTION WIDTH 12.5 % (11.6-14.8); WHITE BLOOD COUNT 3.8 K/UL (4.8-10.8)
[2020-03-15 06:42] LABS: ANION GAP 6 mmol/L (5-15); BLOOD UREA NITROGEN 7 mg/dL (7-18); CALCIUM 8.3 MG/DL (8.5-10.1); CARBON DIOXIDE 27 MMOL/L (21-32); CHLORIDE 110 MMOL/L (98-107); CREATININE 0.5 MG/DL (0.55-1.30); SODIUM 143 MMOL/L (136-145)
--- NOTE | 2020-03-15 07:09 | NUR ---
NURSE NOTES: Report received from Soco ROLDAN, rounds made. Patient sleeping, easily awakens to name. Remains NPO, will provide oral care and ice chips. No distress on RA, respirations even/unlabored. Zosyn IV and IVF (D5 1/2 +20 KCL at 100 ml) infusing to LAC, site asymptomatic,wrapped with kerlix. Bilateral SCDs off. Abdominal dressing CDI. Bowel sounds absent, abdomen soft, non-distended, no NV. Denies pain at this time. VSS. Encouraged IS and ankle rotation, patient compliant, demonstrates correctly. Call light in reach, bed in lowest position, will continue to monitor.
--- NOTE | 2020-03-15 07:15 | NUR ---
HAND-OFF: Report given to kaia figueroa. patient is awake. no sob. call light and light button within easy reach. plan of care endorsed.
[2020-03-15] MEDS: Heparin 5000 units/ml inj SUBQ SCH (08:27)
--- NOTE | 2020-03-15 08:28 | Pulmonology Progress Note ---
Subjective Interval Events: None new Constitutional: Reports: no symptoms HEENT: Repors: no symptoms Respiratory: Reports: no symptoms Cardiovascular: Reports: no symptoms Gastrointestinal/Abdominal: Reports: no symptoms Allergies: Coded Allergies: No Known Allergies (Unverified , 03/10/20) Objective Last 24 Hour Vital Signs Date Time Temp Pulse Resp B/P (MAP) Pulse Ox O2 Delivery O2 Flow Rate FiO2 03/15/20 07:42 98.3 70 16 121/63 (82) 97 03/15/20 04:00 97.8 76 19 125/73 (90) 97 03/15/20 02:08 97.6 03/15/20 00:00 97.6 78 19 126/76 (93) 98 03/14/20 21:00 Room Air 03/14/20 20:00 97.8 76 18 18/76 (57) 98 03/14/20 16:00 97.9 94 18 139/89 (106) 97 03/14/20 12:00 97.6 78 18 126/73 (90) 98 03/14/20 09:00 Room Air Intake and Output 03/14/20 03/15/20 19:00 07:00 Intake Total 1100 ml 1437.5 ml Output Total 1900 ml 1200 ml Balance -800 ml 237.5 ml IV Total 1100 ml 1437.5 ml Output Urine Total 1900 ml 1200 ml # Voids 7 5 General Appearance: no acute distress HEENT: normocephalic Respiratory: chest wall non-tender, lungs clear Cardiovascular: normal peripheral pulses Abdomen: non distended Laboratory Tests 03/15/20 04:50: White Blood Count 3.8L, Red Blood Count 2.90L, Hemoglobin 9.3L, Hematocrit 29.0L , Mean Corpuscular Volume 100H, Mean Corpuscular Hemoglobin 32.1H, Mean Corpuscular Hemoglobin Concent 32.2, Red Cell Distribution Width 12.5, Platelet Count 158, Mean Platelet Volume 7.3, Neutrophils (%) (Auto) 52.9, Lymphocytes (% ) (Auto) 35.1, Monocytes (%) (Auto) 6.2, Eosinophils (%) (Auto) 4.8H, Basophils (%) (Auto) 1.1, Sodium Level 143, Potassium Level 4.0, Chloride Level 110H, Carbon Dioxide Level 27, Anion Gap 6, Blood Urea Nitrogen 7, Creatinine 0.5L, Estimat Glomerular Filtration Rate > 60, Glucose Level 99, Calcium Level 8.3L Current Medications Medications (Trade) Dose Ordered Sig/Dorian Route PRN Reason Start Time Stop Time Status Last Admin Dose Admin Acetaminophen (Tylenol) 650 mg Q6H PRN ORAL T>100.5/TAYLOR 03/11/20 17:15 04/10/20 17:14 Clonazepam (KlonoPIN) 0.5 mg Q6HR ORAL 03/12/20 10:40 03/19/20 10:39 03/15/20 05:03 Dextrose/ Electrolytes 1,000 ml @ 100 mls/hr Q10H IV 03/11/20 18:30 04/10/20 18:29 03/15/20 01:38 Diphenhydramine HCl (Benadryl) 12.5 mg Q6H PRN IVP Itching/Pruritis 03/11/20 17:15 04/10/20 17:14 Heparin Sodium (Porcine) (Heparin 5000 units/ml) 5,000 units EVERY 12 HOURS SUBQ 03/14/20 09:30 04/26/20 09:29 03/14/20 21:00 Hydromorphone HCl (Dilaudid) 0.5 mg Q3H PRN IVP Mild Pain (Pain Scale 1-3) 03/11/20 17:15 03/18/20 17:14 Hydromorphone HCl (Dilaudid) 1 mg Q3H PRN IVP Moderate Pain (Pain Scale 4-6) 03/11/20 17:15 03/18/20 17:14 03/15/20 01:38 Hydromorphone HCl (Dilaudid) 2 mg Q3H PRN IVP Severe Pain (Pain Scale 7-10) 03/11/20 17:15 03/18/20 17:14 Levetiracetam 100 ml @ 400 mls/hr Q12HR IVPB 03/12/20 21:00 06/10/20 20:59 03/14/20 20:51 Levothyroxine Sodium (Synthroid) 50 mcg DAILY IV 03/13/20 09:00 04/12/20 08:59 03/14/20 09:43 Lorazepam (Ativan 2mg/ml 1ml) 1 mg Q4H PRN IV For Anxiety 03/11/20 17:45 03/18/20 17:44 03/11/20 23:29 Ondansetron HCl (Zofran) 4 mg Q6H PRN IVP Nausea & Vomiting 03/11/20 17:15 04/10/20 17:14 Piperacillin Sod/ Tazobactam Sod 3.375 gm/Sodium Chloride 110 ml @ 27.5 mls/hr EVERY 8 HOURS IVPB 03/11/20 19:30 03/18/20 19:29 03/15/20 05:03 Assessment/Plan Assessment/Plan IMPRESSION: 1. Postop day #4 status post partial cystectomy, lysis of adhesions, and sigmoid colectomy. 2. History of hypertension. 3. History of seizures. DISCUSSION: Diet per surgery. Continue IV Keppra and Synthroid. Hold remainder of medications. I will follow as thread dresser and central melt specialist. Labs and vitals reviewed Still npo Arthur Mendez M.D. Arthur Mendez MD Mar 15, 2020 08:28
--- NOTE | 2020-03-15 09:20 | NUR ---
PT NOTE Patient not available for PT treatment, Karla ROLDAN requesting to defer treatment at this time, will follow.
[2020-03-15] MEDS: levETIRAcetam 1,000mg/NS100ml 100 ML IVPB SCH (09:48)
--- NOTE | 2020-03-15 10:00 | NUR ---
NURSE NOTES: At 09 patient up to [facility] [place], had small liquid (200 ml) bloody BM with what appears to be clots or small bloody stool pieces. VSS, T 98.6 P 102 R 16 BP 137/88 O2 sat 98% on RA, patient calm, no c/o of chest pain, SOB or dizziness. Dr. Rodriguez notified, orders to start clear liquid diet, patient updated, verbalized understanding. Tolerating jello and water at this time, no NV. Will continue to monitor. Addendum: 03/15/20 at 1126 by Karla Mccray RN Reinforced to patient no straining with BM, patient states she did not strain. Abdominal dressing remains CDI.
--- NOTE | 2020-03-15 14:04 | Surgery Progress Note ---
Surgery Progress Note Subjective Procedure Performed 1 exploratory laparotomy 2 sigmoid colectomy 3 open lyse adhesions for partial omentectomy 5 mobilization of splenic flexure Additional Comments had bm no acute events Objective Last 24 Hour Vital Signs Date Time Temp Pulse Resp B/P (MAP) Pulse Ox O2 Delivery O2 Flow Rate FiO2 03/15/20 12:00 98.1 86 16 117/78 (91) 98 03/15/20 09:25 98.6 102 16 137/88 (104) 98 03/15/20 09:08 Room Air 03/15/20 07:42 98.3 70 16 121/63 (82) 97 03/15/20 04:00 97.8 76 19 125/73 (90) 97 03/15/20 02:08 97.6 03/15/20 00:00 97.6 78 19 126/76 (93) 98 03/14/20 21:00 Room Air 03/14/20 20:00 97.8 76 18 18/76 (57) 98 03/14/20 16:00 97.9 94 18 139/89 (106) 97 I&O Intake and Output 03/14/20 03/15/20 19:00 07:00 Intake Total 1100 ml 1537.5 ml Output Total 1900 ml 1200 ml Balance -800 ml 337.5 ml IV Total 1100 ml 1537.5 ml Output Urine Total 1900 ml 1200 ml # Voids 7 5 Dressing: other Wound: other Drains: other Cardiovascular: RSR Respiratory: decreased breath sounds Abdomen: soft, non-tender, present bowel sounds Extremities: no edema, no tenderness, no cyanosis Laboratory Tests Test 03/15/20 04:50 White Blood Count 3.8 K/UL (4.8-10.8) L Red Blood Count 2.90 M/UL (4.20-5.40) L Hemoglobin 9.3 G/DL (12.0-16.0) L Hematocrit 29.0 % (37.0-47.0) L Mean Corpuscular Volume 100 FL (80-99) H Mean Corpuscular Hemoglobin 32.1 PG (27.0-31.0) H Mean Corpuscular Hemoglobin Concent 32.2 G/DL (32.0-36.0) Red Cell Distribution Width 12.5 % (11.6-14.8) Platelet Count 158 K/UL (150-450) Mean Platelet Volume 7.3 FL (6.5-10.1) Neutrophils (%) (Auto) 52.9 % (45.0-75.0) Lymphocytes (%) (Auto) 35.1 % (20.0-45.0) Monocytes (%) (Auto) 6.2 % (1.0-10.0) Eosinophils (%) (Auto) 4.8 % (0.0-3.0) H Basophils (%) (Auto) 1.1 % (0.0-2.0) Sodium Level 143 MMOL/L (136-145) Potassium Level 4.0 MMOL/L (3.5-5.1) Chloride Level 110 MMOL/L (98-107) H Carbon Dioxide Level 27 MMOL/L (21-32) Anion Gap 6 mmol/L (5-15) Blood Urea Nitrogen 7 mg/dL (7-18) Creatinine 0.5 MG/DL (0.55-1.30) L Estimat Glomerular Filtration Rate > 60 mL/min (>60) Glucose Level 99 MG/DL (74-106) Calcium Level 8.3 MG/DL (8.5-10.1) L Plan Problems: (1) Colonic fistula Assessment & Plan: doing well post op ambulatory miller to stay in given surgery npo iv fluids rx as written incentive spirometry ambulate and out of bed Rafiq Rodriguez Mar 15, 2020 14:04
[2020-03-15] MEDS ORDERED: Tubing IV Secondary IV ONE (17:37)
--- NOTE | 2020-03-15 18:53 | NUR ---
NURSE NOTES: At 1830 patient up to BS, had small liquid (25 ml) bloody BM with what appears to be clots or small bloody stool pieces. VSS, T 98.8 P 111 R 16 BP 112/78 O2 sat 97% on RA, patient calm, no c/o of chest pain, SOB or dizziness. Dr. Rodriguez notified, orders to hold heparin and CBC at 1999, patient updated, verbalized understanding. Surgical site (bernice) remain PROPERTY CONSULTANT, no redness/swelling/drainage noted, no NV. Will continue to monitor.
--- NOTE | 2020-03-15 19:05 | NUR ---
HAND-OFF: Report given to Leann ROLDAN, rounds made, patient stable. Endorsed POC, CBC at 2000 and Heparin on hold, due to bloody BMs.
--- NOTE | 2020-03-15 19:37 | NUR ---
NURSE NOTES: Received report from YULI Acosta. AAO x 4, on room air. No drainage noted on surgical site abd. Using bedside commode. IV site intact and running IVF. Pt had bloody liquid stool during day shift. Heparin held. No labored breathing, denies pain. Bed locked, lowest position, alarm on, side rails up, call light within reach. will continue to monitor.
[2020-03-15 20:51] LABS: BASOPHILS % (AUTO) 0.8 % (0.0-2.0); EOSINOPHILS % (AUTO) 2.8 % (0.0-3.0); HEMATOCRIT 31.4 % (37.0-47.0); HEMOGLOBIN 10.2 G/DL (12.0-16.0); LYMPHOCYTES % (AUTO) 18.7 % (20.0-45.0); MEAN CORPUSCULAR VOLUME 100 FL (80-99); MONOCYTES % (AUTO) 6.5 % (1.0-10.0); NEUTROPHILS % (AUTO) 71.2 % (45.0-75.0); PLATELET COUNT 191 K/UL (150-450); RED BLOOD COUNT 3.15 M/UL (4.20-5.40); RED CELL DISTRIBUTION WIDTH 13.3 % (11.6-14.8); WHITE BLOOD COUNT 5.5 K/UL (4.8-10.8)
--- NOTE | 2020-03-16 00:30 | NUR ---
NURSE NOTES: Pt had 450cc of urine and dark red bloody liquid stool together. Unable to measure liquid stool only. Pain 7/10 on ABD and pain med given.
[2020-03-16] MEDS: HYDROmorphone 1mg/ml Carpuject IVP PRN ×2 (00:33→05:34)
[2020-03-16 04:00] VITALS: BP 125/78
[2020-03-16] MEDS: clonazePAM 0.5mg tab ORAL SCH ×4 (05:34→23:27)
[2020-03-16] MEDS: D5 1/2NS w/KCl 20mEq 1,000 ML IV SCH (05:35)
[2020-03-16 06:47] LABS: BASOPHILS % (AUTO) 1.4 % (0.0-2.0); EOSINOPHILS % (AUTO) 5.1 % (0.0-3.0); HEMATOCRIT 28.3 % (37.0-47.0); HEMOGLOBIN 9.1 G/DL (12.0-16.0); LYMPHOCYTES % (AUTO) 31.7 % (20.0-45.0); MEAN CORPUSCULAR VOLUME 99 FL (80-99); MONOCYTES % (AUTO) 7.6 % (1.0-10.0); NEUTROPHILS % (AUTO) 54.2 % (45.0-75.0); PLATELET COUNT 186 K/UL (150-450); RED BLOOD COUNT 2.86 M/UL (4.20-5.40); RED CELL DISTRIBUTION WIDTH 12.1 % (11.6-14.8); WHITE BLOOD COUNT 3.9 K/UL (4.8-10.8)
[2020-03-16 07:02] LABS: ANION GAP 5 mmol/L (5-15); BLOOD UREA NITROGEN 8 mg/dL (7-18); CALCIUM 8.6 MG/DL (8.5-10.1); CARBON DIOXIDE 29 MMOL/L (21-32); CHLORIDE 109 MMOL/L (98-107); CREATININE 0.6 MG/DL (0.55-1.30); SODIUM 143 MMOL/L (136-145)
--- NOTE | 2020-03-16 07:36 | NUR ---
HAND-OFF: Report given to YULI Sommers.
--- NOTE | 2020-03-16 07:54 | NUR ---
NURSE NOTES: Received report from YULI Noriega. AAO x 4, on room air. [place]une[place] speaking. No acute distress noted. Denies pain at this time. IV site intact and running IVF. Per night nurse pt had bloody liquid stool last night. Heparin held. Bed in low position, locked. side rails up, call light within reach. will continue to monitor.
[2020-03-16 08:00] VITALS: BP 144/86
--- NOTE | 2020-03-16 09:42 | NUR ---
RD ASSESSMENT & RECOMMENDATIONS SEE CARE ACTIVITY FOR COMPLETE ASSESSMENT DAILY ESTIMATED NEEDS: Needs based on Surgery 60.9kg abw 25-30 kcals/kg 3669-6419 total kcals 1-2 g protein/kg 61-122 g total protein 25-30 mL/kg 2965-1066 total fluid mLs NUTRITION DIAGNOSIS: Altered GI fxn r/t sigmoid diverticula, colovesicular fistula as evidenced by s/p ex lap w/ sigmoid colectomy and open lyse adhesions, diet now advanced to CLD, poor intake. CURRENT DIET: CLD PO DIET RECOMMENDATIONS: Advance as tolerated to Soft/ LOW NA diet ADDITIONAL RECOMMENDATIONS: 1) Add Ensure Clear to CLD 2) Add KB BID for surgical wound healing 3) Obtain a standing weight as able 4) Check lytes daily, con't IVF w/ poor po intake
--- NOTE | 2020-03-16 11:54 | NUR ---
NURSE NOTES: Pt had BM. Dark red bloody liquid stool. 150cc.
[2020-03-16 12:00] VITALS: BP 127/69
--- NOTE | 2020-03-16 13:43 | NUR ---
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
--- NOTE | 2020-03-16 14:22 | Surgery Progress Note ---
Surgery Progress Note Subjective Procedure Performed 1 exploratory laparotomy 2 sigmoid colectomy 3 open lyse adhesions for partial omentectomy 5 mobilization of splenic flexure Additional Comments Improving doing well discussed case with patient family staff. Amatory passing flatus bowel movement still with melena likely from mild bleed post anastomosis no active bleeding noted hemoglobin stable tolerating diet abdominal exam benign Objective Last 24 Hour Vital Signs Date Time Temp Pulse Resp B/P (MAP) Pulse Ox O2 Delivery O2 Flow Rate FiO2 03/16/20 12:00 97.6 81 18 127/69 (88) 98 03/16/20 09:00 Room Air 03/16/20 08:00 98.2 92 18 144/86 (105) 97 03/16/20 04:00 97.7 72 20 125/78 (94) 96 03/15/20 23:49 97.8 95 18 143/92 (109) 98 03/15/20 20:34 Room Air 03/15/20 20:00 98.2 104 18 137/86 (103) 98 03/15/20 18:35 98.8 111 16 112/78 (89) 97 03/15/20 18:30 Room Air 03/15/20 16:00 97.6 99 16 135/85 (102) 99 I&O Intake and Output 03/15/20 03/16/20 19:00 07:00 Intake Total 2220 ml 500 ml Output Total 2325 ml 1250 ml Balance -105 ml -750 ml Intake Oral 1420 ml IV Total 800 ml 500 ml Output Urine Total 2100 ml 1250 ml Stool Total 225 ml # Voids 5 4 # Bowel Movements 4 1 Dressing: dry Wound: clean Cardiovascular: RSR Respiratory: clear Abdomen: soft, non-tender, present bowel sounds, non-distended Extremities: no edema, no tenderness, no cyanosis Laboratory Tests Test 03/15/20 20:20 03/16/20 05:00 White Blood Count 5.5 K/UL (4.8-10.8) 3.9 K/UL (4.8-10.8) L Red Blood Count 3.15 M/UL (4.20-5.40) L 2.86 M/UL (4.20-5.40) L Hemoglobin 10.2 G/DL (12.0-16.0) L 9.1 G/DL (12.0-16.0) L Hematocrit 31.4 % (37.0-47.0) L 28.3 % (37.0-47.0) L Mean Corpuscular Volume 100 FL (80-99) H 99 FL (80-99) Mean Corpuscular Hemoglobin 32.3 PG (27.0-31.0) H 31.9 PG (27.0-31.0) H Mean Corpuscular Hemoglobin Concent 32.4 G/DL (32.0-36.0) 32.1 G/DL (32.0-36.0) Red Cell Distribution Width 13.3 % (11.6-14.8) 12.1 % (11.6-14.8) Platelet Count 191 K/UL (150-450) 186 K/UL (150-450) Mean Platelet Volume 7.8 FL (6.5-10.1) 7.4 FL (6.5-10.1) Neutrophils (%) (Auto) 71.2 % (45.0-75.0) 54.2 % (45.0-75.0) Lymphocytes (%) (Auto) 18.7 % (20.0-45.0) L 31.7 % (20.0-45.0) Monocytes (%) (Auto) 6.5 % (1.0-10.0) 7.6 % (1.0-10.0) Eosinophils (%) (Auto) 2.8 % (0.0-3.0) 5.1 % (0.0-3.0) H Basophils (%) (Auto) 0.8 % (0.0-2.0) 1.4 % (0.0-2.0) Sodium Level 143 MMOL/L (136-145) Potassium Level 4.0 MMOL/L (3.5-5.1) Chloride Level 109 MMOL/L (98-107) H Carbon Dioxide Level 29 MMOL/L (21-32) Anion Gap 5 mmol/L (5-15) Blood Urea Nitrogen 8 mg/dL (7-18) Creatinine 0.6 MG/DL (0.55-1.30) Estimat Glomerular Filtration Rate > 60 mL/min (>60) Glucose Level 88 MG/DL (74-106) Calcium Level 8.6 MG/DL (8.5-10.1) Plan Problems: (1) Colonic fistula Assessment & Plan: doing well post op ambulatory miller to stay in given surgery npo iv fluids rx as written incentive spirometry ambulate and out of bed Diet as tolerated advance to regular today DC IV fluids activity as tolerated Discharge planning for the next 1 to 2 days Rafiq Rodriguez Mar 16, 2020 14:22
[2020-03-16 16:00] VITALS: BP 114/65
--- NOTE | 2020-03-16 16:12 | Pulmonology Progress Note ---
Subjective Interval Events: None new Constitutional: Reports: no symptoms HEENT: Repors: no symptoms Respiratory: Reports: no symptoms Cardiovascular: Reports: no symptoms Gastrointestinal/Abdominal: Reports: no symptoms Allergies: Coded Allergies: No Known Allergies (Unverified , 03/10/20) Objective Last 24 Hour Vital Signs Date Time Temp Pulse Resp B/P (MAP) Pulse Ox O2 Delivery O2 Flow Rate FiO2 03/16/20 12:00 97.6 81 18 127/69 (88) 98 03/16/20 09:00 Room Air 03/16/20 08:00 98.2 92 18 144/86 (105) 97 03/16/20 04:00 97.7 72 20 125/78 (94) 96 03/15/20 23:49 97.8 95 18 143/92 (109) 98 03/15/20 20:34 Room Air 03/15/20 20:00 98.2 104 18 137/86 (103) 98 03/15/20 18:35 98.8 111 16 112/78 (89) 97 03/15/20 18:30 Room Air Intake and Output 03/15/20 03/16/20 18:59 06:59 Intake Total 2270 ml 550 ml Output Total 2325 ml 1250 ml Balance -55 ml -700 ml Intake Oral 1420 ml IV Total 850 ml 550 ml Output Urine Total 2100 ml 1250 ml Stool Total 225 ml # Voids 5 4 # Bowel Movements 4 1 General Appearance: no acute distress HEENT: normocephalic Respiratory: chest wall non-tender, lungs clear Cardiovascular: normal peripheral pulses Abdomen: non distended Laboratory Tests 03/15/20 20:20: White Blood Count 5.5, Red Blood Count 3.15L, Hemoglobin 10.2L, Hematocrit 31.4L , Mean Corpuscular Volume 100H, Mean Corpuscular Hemoglobin 32.3H, Mean Corpuscular Hemoglobin Concent 32.4, Red Cell Distribution Width 13.3, Platelet Count 191, Mean Platelet Volume 7.8, Neutrophils (%) (Auto) 71.2, Lymphocytes (% ) (Auto) 18.7L, Monocytes (%) (Auto) 6.5, Eosinophils (%) (Auto) 2.8, Basophils (%) (Auto) 0.8 03/16/20 05:00: White Blood Count 3.9L, Red Blood Count 2.86L, Hemoglobin 9.1L, Hematocrit 28.3L , Mean Corpuscular Volume 99, Mean Corpuscular Hemoglobin 31.9H, Mean Corpuscular Hemoglobin Concent 32.1, Red Cell Distribution Width 12.1, Platelet Count 186, Mean Platelet Volume 7.4, Neutrophils (%) (Auto) 54.2, Lymphocytes (% ) (Auto) 31.7, Monocytes (%) (Auto) 7.6, Eosinophils (%) (Auto) 5.1H, Basophils (%) (Auto) 1.4, Sodium Level 143, Potassium Level 4.0, Chloride Level 109H, Carbon Dioxide Level 29, Anion Gap 5, Blood Urea Nitrogen 8, Creatinine 0.6, Estimat Glomerular Filtration Rate > 60, Glucose Level 88, Calcium Level 8.6 Current Medications Medications (Trade) Dose Ordered Sig/Dorian Route PRN Reason Start Time Stop Time Status Last Admin Dose Admin Acetaminophen (Tylenol) 650 mg Q6H PRN ORAL T>100.5/TAYLOR 03/11/20 17:15 04/10/20 17:14 Acetaminophen/ Hydrocodone Bitart ([place] 5/325) 1 tab Q4H PRN ORAL Moderate Pain (Pain Scale 4-6) 03/16/20 13:15 03/23/20 13:14 Clonazepam (KlonoPIN) 0.5 mg Q6HR ORAL 03/12/20 10:40 03/19/20 10:39 03/16/20 12:14 Diphenhydramine HCl (Benadryl) 12.5 mg Q6H PRN IVP Itching/Pruritis 03/11/20 17:15 04/10/20 17:14 Levetiracetam (Keppra) 1,000 mg Q12HR ORAL 03/15/20 21:00 04/14/20 20:59 03/16/20 08:26 Levothyroxine Sodium (Synthroid) 100 mcg DAILY@0630 ORAL 03/16/20 06:30 04/15/20 06:29 03/16/20 05:34 Ondansetron HCl (Zofran) 4 mg Q6H PRN IVP Nausea & Vomiting 03/11/20 17:15 04/10/20 17:14 Assessment/Plan Assessment/Plan IMPRESSION: 1. Postop day #5 status post partial cystectomy, lysis of adhesions, and sigmoid colectomy. 2. History of hypertension. 3. History of seizures. DISCUSSION: Diet per surgery, currently on clear liquids. Continue IV Keppra and Synthroid. Hold remainder of medications. 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 Labs and vitals reviewed Still npo Arthur Mendez M.D. Arthur Mendez MD Mar 16, 2020 16:12
[2020-03-16] MEDS: HYDROcodone/Acetamin 5/325 tab ORAL PRN ×2 (17:17→21:30)
--- NOTE | 2020-03-16 19:15 | NUR ---
HAND-OFF: Report given to YULI Kumar.
--- NOTE | 2020-03-16 19:40 | NUR ---
NURSE NOTES: Report received from Deborah Blankenship RN. Patient in stable condition.
[2020-03-16 20:00] VITALS: BP 114/77
[2020-03-17] VITALS: BP 103/63
[2020-03-17 04:00] VITALS: BP 113/65
[2020-03-17 05:28] LABS: EOSINOPHILS % (AUTO) 6.6 % (0.0-3.0); HEMATOCRIT 30.2 % (37.0-47.0); HEMOGLOBIN 9.7 G/DL (12.0-16.0); LYMPHOCYTES % (AUTO) 38.2 % (20.0-45.0); MEAN CORPUSCULAR VOLUME 99 FL (80-99); MONOCYTES % (AUTO) 8.6 % (1.0-10.0); NEUTROPHILS % (AUTO) 45.6 % (45.0-75.0); PLATELET COUNT 199 K/UL (150-450); RED BLOOD COUNT 3.05 M/UL (4.20-5.40); RED CELL DISTRIBUTION WIDTH 12.8 % (11.6-14.8); WHITE BLOOD COUNT 3.7 K/UL (4.8-10.8)
[2020-03-17] MEDS: clonazePAM 0.5mg tab ORAL SCH ×2 (05:35→11:56)
[2020-03-17 05:41] LABS: ANION GAP 5 mmol/L (5-15); BLOOD UREA NITROGEN 11 mg/dL (7-18); CALCIUM 8.8 MG/DL (8.5-10.1); CARBON DIOXIDE 30 MMOL/L (21-32); CHLORIDE 107 MMOL/L (98-107); CREATININE 0.7 MG/DL (0.55-1.30); POTASSIUM 3.5 MMOL/L (3.5-5.1); SODIUM 142 MMOL/L (136-145)
--- NOTE | 2020-03-17 07:27 | NUR ---
NURSE NOTES: Received report from YULI Kumar. Pt was in restroom. Ambulatory. No acute distress noted. Denies any pain at this time. Pt refused to use BSC and prefer restroom. Nigel on abdomen open to air, clean and intact. Bed in low position, locked. Call light within reach. Will continue to monitor.
--- NOTE | 2020-03-17 07:31 | NUR ---
HAND-OFF: Report given to Deborah Blankenship RN.
[2020-03-17 08:00] VITALS: BP 111/76
--- NOTE | 2020-03-17 10:07 | Pulmonology Progress Note ---
Subjective Interval Events: None new Constitutional: Reports: no symptoms HEENT: Repors: no symptoms Respiratory: Reports: no symptoms Cardiovascular: Reports: no symptoms Gastrointestinal/Abdominal: Reports: no symptoms Allergies: Coded Allergies: No Known Allergies (Unverified , 03/10/20) Objective Last 24 Hour Vital Signs Date Time Temp Pulse Resp B/P (MAP) Pulse Ox O2 Delivery O2 Flow Rate FiO2 03/17/20 09:00 Room Air 03/17/20 08:00 98.1 92 18 111/76 (88) 97 03/17/20 04:00 98.0 70 18 113/65 (81) 98 03/17/20 00:00 98.2 67 18 103/63 (76) 98 03/16/20 22:00 98.5 03/16/20 21:00 Room Air 03/16/20 20:00 98.2 98 16 114/77 (89) 96 03/16/20 16:00 98.5 90 18 114/65 (81) 98 03/16/20 12:00 97.6 81 18 127/69 (88) 98 Intake and Output 03/16/20 03/17/20 19:00 07:00 Output Total 1050 ml 600 ml Balance -1050 ml -600 ml Output Urine Total 800 ml 600 ml Stool Total 250 ml # Voids 4 2 # Bowel Movements 2 2 General Appearance: no acute distress HEENT: normocephalic Respiratory: chest wall non-tender, lungs clear Cardiovascular: normal peripheral pulses Abdomen: non distended Laboratory Tests 03/17/20 05:05: White Blood Count 3.7L, Red Blood Count 3.05L, Hemoglobin 9.7L, Hematocrit 30.2L , Mean Corpuscular Volume 99, Mean Corpuscular Hemoglobin 31.7H, Mean Corpuscular Hemoglobin Concent 32.0, Red Cell Distribution Width 12.8, Platelet Count 199, Mean Platelet Volume 7.2, Neutrophils (%) (Auto) 45.6, Lymphocytes (% ) (Auto) 38.2, Monocytes (%) (Auto) 8.6, Eosinophils (%) (Auto) 6.6H, Basophils (%) (Auto) 1.0, Sodium Level 142, Potassium Level 3.5, Chloride Level 107, Carbon Dioxide Level 30, Anion Gap 5, Blood Urea Nitrogen 11, Creatinine 0.7, Estimat Glomerular Filtration Rate > 60, Glucose Level 87, Calcium Level 8.8 Current Medications Medications (Trade) Dose Ordered Sig/Dorian Route PRN Reason Start Time Stop Time Status Last Admin Dose Admin Acetaminophen (Tylenol) 650 mg Q6H PRN ORAL T>100.5/TAYLOR 03/11/20 17:15 04/10/20 17:14 Acetaminophen/ Hydrocodone Bitart ([place] 5/325) 1 tab Q4H PRN ORAL Moderate Pain (Pain Scale 4-6) 03/16/20 13:15 03/23/20 13:14 03/16/20 21:30 Clonazepam (KlonoPIN) 0.5 mg Q6HR ORAL 03/12/20 10:40 03/19/20 10:39 03/17/20 05:35 Diphenhydramine HCl (Benadryl) 12.5 mg Q6H PRN IVP Itching/Pruritis 03/11/20 17:15 04/10/20 17:14 Levetiracetam (Keppra) 1,000 mg Q12HR ORAL 03/15/20 21:00 04/14/20 20:59 03/17/20 08:30 Levothyroxine Sodium (Synthroid) 100 mcg DAILY@0630 ORAL 03/16/20 06:30 04/15/20 06:29 03/17/20 05:36 Ondansetron HCl (Zofran) 4 mg Q6H PRN IVP Nausea & Vomiting 03/11/20 17:15 04/10/20 17:14 Assessment/Plan Assessment/Plan IMPRESSION: 1. Postop day #6 status post partial cystectomy, lysis of adhesions, and sigmoid colectomy. 2. History of hypertension. 3. History of seizures. DISCUSSION: Diet per surgery, currently on clear liquids. Continue IV Keppra and Synthroid. Hold remainder of medications. I will follow as house rn and kitchen and counter worker. Labs and vitals reviewed [place] Omar Syed MD Mar 17, 2020 10:06
[2020-03-17 12:00] VITALS: BP 115/75
--- NOTE | 2020-03-17 14:00 | NUR ---
NURSE NOTES: Pt in stable condition. Provided discharge instructions, follow up and Rx. Pt verbalized understanding. All belongings were accounted for. IV and ID removed. Pt escorted to downstair by nurse. picked up by Son.
--- NOTE | 2020-03-19 12:42 | Discharge Summary ---
Discharge Summary Hospital Course Date of Admission Mar 11, 2020 at 10:52 Date of Discharge Mar 17, 2020 at 14:00 Admitting Diagnosis Colovesicular fistula, sigmoid diverticula. Reason for Hospitalization: Was admitted for elective surgery HPI Joyce Chavez is a 74 year old female who was admitted on Mar 11, 2020 at 10:52 for Colovesicular fistula. Patient was admitted for elective surgery. Consultations Dr Mendez -IM/pulmo Procedures s/p 03/11/[address] Ferguson Partial cystectomy. s/p 03/11/[address] Brady 1. Exploratory laparotomy. 2. Sigmoid colectomy. 3. Open lysis of adhesions. 4. Partial omentectomy. 5. Mobilization of splenic flexure. Hospital Course patient successfully undergone partial cystectomy with exploratory laparotomy, sigmoid colectomy, open lysis of adhesion, partial omentectomy and mobilization of splenic flexure on 03/11 postoperative course of recovery was uneventful patient initially was kept n.p.o. s/p perioperative antibiotic status post perioperative antibiotics pain management was addressed as needed pain was controlled hemodynamic status remained stable, no need for antihypertensive medications incentive spirometry encouraged while patient was in bed. patient mobilized d as tolerated with help of physical therapist patient slowly started on diet and was advanced as tolerated antiemetic were on board as needed home medications continued DVT prophylaxis provided wound care provided as per surgeon recommendation seizure precaution maintained., Irisra continued no evidence of seizure activity while in the hospital Wooten catheter initially remained in place as per urologist recommendation and was discontinued on 03/15 patient voided without difficulties bowel regimen instituted supportive care provided. patient clinically stabilized and was ready for discharge home. discharge instruction and prescription provided, patient to follow-up with surgeons as advised FINAL DIAGNOSES Colovesicular fistula Sigmoid diverticula Status post exploratory laparotomy with sigmoid colectomy, open lysis of adhesion, partial omentectomy and mobilization of splenic flexure s/p Partial cystectomy Hypertension Seizure disorder Discharge Medications Continued Medications: Aspirin* (Aspir 81*) 81 Mg Tablet. 81 MG ORAL BID for as prescribed, TAB (This prescription has been renewed) Clonazepam* (Klonopin*) 0.5 Mg Tablet 0.5 MG ORAL Q6H for as prescribed, #15 TAB 0 Refills (This prescription has been renewed) Fesoterodine Fumarate (Toviaz) 8 Mg Tab.er.24h 8 MG PO DAILY for as prescribed, TAB (This prescription has been renewed) Levetiracetam (Keppra) 1,000 Mg Tablet 1000 MG ORAL BID for as prescribed, #30 TAB 0 Refills (This prescription has been renewed) Levothyroxine Sodium* (Synthroid*) 100 Mcg Tablet 100 MCG ORAL DAILY for as prescribed, TAB (This prescription has been renewed) Take in the morning on an empty stomach, at least 30 minutes before food. Nitrofurantoin Monohyd/M-Cryst* (Macrobid 100 Mg*) 100 Mg Capsule 100 MG ORAL DAILY for as prescribed, CAP (This prescription has been renewed) Zolpidem Tartrate* (Ambien*) 10 Mg Tablet 10 MG ORAL BEDTIME PRN for Insomnia, TAB 0 Refills (This prescription has been renewed) Discharge Condition Upon Discharge: stable Discharge Vital Signs Last Vital Signs Date Time Temp Pulse Resp B/P (MAP) Pulse Ox O2 Delivery O2 Flow Rate FiO2 03/17/20 12:00 98.6 90 18 115/75 (88) 97 03/17/20 09:00 Room Air 03/11/20 18:21 3.0 Discharge Disposition Patient was discharged home Discharge Instructions Discharge Instructions Special Instructions I have been assigned to complete a D/C Summary on this account. I was not involved in the patient management Vy Munroe NP Mar 19, 2020 12:42
== END 2020-03-17 14:00 | disposition home or self-care (01) | DRG 655 ==
LOC: SDSOVERFLO 10:52 → 3E 17:00
PROC: 0DTN0ZZ Resection of Sigmoid Colon, Open Approach (ICD-10-PCS; principal; 2020-03-11 13:00)
PROC: 0TBB0ZZ Excision of Bladder, Open Approach (ICD-10-PCS; principal; 2020-03-11 13:00)
PROC: 0DBU0ZZ Excision of Omentum, Open Approach (ICD-10-PCS; principal; 2020-03-11 13:00)
PROC: 0DNU0ZZ Release Omentum, Open Approach (ICD-10-PCS; principal; 2020-03-11 13:00)
DX: N32.1 Vesicointestinal fistula (principal); K57.30 Diverticulosis of large intestine without perforation or abscess without bleeding; I10 Essential (primary) hypertension; Z79.82 Long term (current) use of aspirin; K66.0 Peritoneal adhesions (postprocedural) (postinfection); R56.9 Unspecified convulsions
CPT/HCPCS: 36415; 80048; 80053; 82248; 85025; 86850; 86900; 86901; 87081; 94003; 94150; J2250; J2405; J2710

== ENCOUNTER 2020-07-09 18:59 | Inpatient (IN) | payer MEDICARE, OTHER ==
[~2020-07-09] VITALS: Ht 165.1 cm; Wt 77.1 kg
[~2020-07-09 18:59] MED LIST changes: +AMBIEN10 MG ORAL; +ASPIR 8181 MG ORAL; +KEPPRA1000 MG ORAL; +KLONOPIN0.5 MG ORAL; +NITROFURANTOIN100 M2 ORAL; +SYNTHROID100 MCG ORAL; +TOVIAZ8 MG PO; -ceFAZolin sod 1 GM in NS 55 ML IVPB ONE
[2020-07-09 19:05] VITALS: BP 127/77
--- NOTE | 2020-07-09 19:05 | NUR ---
ED Nurse Note: walked in from home c/o post op wound complication on mid lower abd. pt was referred by dr Rodriguez for possible post op wound infection. pt reports pus and blood x3 months and wound not healing on post op site. denies any fever. reports sx done on february 2020. vss, nad, aaox4, ambulatory, daughter at bedside, brazilian speaking only. ermd at bedside, on conveyor monitor and gown.
[2020-07-09] MEDS ORDERED: Omnipaque-300 100ml vial INJ PRN (19:15)
--- NOTE | 2020-07-09 19:15 | NUR ---
ED Nurse Note: blood, wound culture, covid swab collected and sent to lab.
[2020-07-09 19:33] LABS: EOSINOPHILS % (AUTO) 2.6 % (0.0-3.0); HEMATOCRIT 45.9 % (37.0-47.0); HEMOGLOBIN 14.2 G/DL (12.0-16.0); LYMPHOCYTES % (AUTO) 37.5 % (20.0-45.0); MEAN CORPUSCULAR VOLUME 92 FL (80-99); MONOCYTES % (AUTO) 7.9 % (1.0-10.0); PLATELET COUNT 190 K/UL (150-450); RED CELL DISTRIBUTION WIDTH 15.5 % (11.6-14.8); WHITE BLOOD COUNT 5.6 K/UL (4.8-10.8)
[2020-07-09 19:47] LABS: CALCIUM 8.8 MG/DL (8.5-10.1); POTASSIUM 3.7 MMOL/L (3.5-5.1)
[2020-07-09 19:51] LABS: ALBUMIN 3.5 G/DL (3.4-5.0); ALBUMIN/GLOBULIN RATIO 0.9 (1.0-2.7); BILIRUBIN,TOTAL 0.4 MG/DL (0.2-1.0)
[2020-07-09] MEDS ORDERED: POTASSIUM CHLO20 ME1 ORAL (20:23)
--- NOTE | 2020-07-09 20:46 | Diagnostic Imaging Report ---
EXAM: CT Abdomen and Pelvis With Intravenous Contrast CLINICAL HISTORY: ABD PAIN TECHNIQUE: Axial computed tomography images of the abdomen and pelvis with intravenous contrast. CTDI is 6.3 mGy and DLP is 318.9 mGy-cm. One or more of the following dose reduction techniques were used: automated exposure control, adjustment of the mA and/or kV according to patient size, use of iterative reconstruction technique. COMPARISON: No relevant prior studies available. FINDINGS: Lung bases: Mild atelectasis in the lung bases. ABDOMEN: Liver: Unremarkable. No mass. Gallbladder and bile ducts: Unremarkable. No calcified stones. No ductal dilation. Pancreas: Unremarkable. No mass. No ductal dilation. Spleen: Unremarkable. No splenomegaly. Adrenals: Unremarkable. No mass. Kidneys and ureters: There are 2 punctate nonobstructing stones in the lower pole of the right kidney. No hydronephrosis. Stomach and bowel: Unremarkable. No obstruction. No mucosal thickening. PELVIS: Appendix: The appendix is not well visualized. No findings to suggest acute appendicitis. Bladder: Unremarkable. No mass. Reproductive: Unremarkable as visualized. ABDOMEN and PELVIS: Intraperitoneal space: Postsurgical changes of the stomach of what appears to be gastric sleeve. No bowel wall thickening, free fluid or fluid air. Bones/joints: [facility] disease of the lower thoracic spine. No acute fracture. No dislocation. Soft tissues: There is a ventral abdominal scar with soft tissue thickening and stranding of the subcutaneous adipose tissues along the left rectus abdominus muscle. There is no fluid collection or rim enhancement to suggest an organized abscess. Vasculature: Unremarkable. No abdominal aortic aneurysm. Lymph nodes: Unremarkable. No enlarged lymph nodes. IMPRESSION: 1. Surgical scar of the ventral abdomen with associated fat stranding, but no fluid collection or rim enhancement to suggest organized abscess formation. 2. Post surgical changes of the stomach. No free fluid or free air. 3. Nephrolithiasis without evidence of hydronephrosis.
--- NOTE | 2020-07-09 21:04 | Emergency Room Report ---
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 COVID-19 Screening: Negative COVID-19 COVID-19 Testing Source: 02/2020 Patient History Past Medical History: see triage record Reviewed Nursing Documentation: PMH: Agreed; PSxH: Agreed Nursing Documentation-PMH Past Medical History: No History, Except For Hx Cardiac Problems: No Hx Cancer: No Hx Gastrointestinal Problems: No Hx Neurological Problems: Yes Hx Seizures: Yes Hx Epilepsy: Yes - 1995 Review of Systems All Other Systems: negative except mentioned in HPI Physical Exam Vital Signs Date Time Temp Pulse Resp B/P (MAP) Pulse Ox O2 Delivery O2 Flow Rate FiO2 07/09/20 19:05 97.9 80 20 129/76 (93) 95 Room Air Sp02 EP Interpretation: reviewed, normal General Appearance: well appearing, no apparent distress, alert Head: normocephalic, atraumatic Eyes: bilateral eye PERRL, bilateral eye EOMI ENT: uvula midline, moist mucus membranes Neck: supple, thyroid normal, supple/symm/no masses Respiratory: lungs clear, no respiratory distress, no retraction, no accessory muscle use Cardiovascular #1: normal peripheral pulses, regular rate, rhythm, no edema, no gallop, no murmur Gastrointestinal: non tender, soft, no guarding, no rebound, other - Open wounds dehisced with some pus/drainage Musculoskeletal: normal inspection Neurologic: alert, oriented x3 Psychiatric: mood/affect normal Skin: no rash, warm/dry Medical Decision Making Diagnostic Impression: Primary Impression: Postoperative wound cellulitis Additional Impressions: Postoperative wound dehiscence Qualified Codes: T81.31XA - Disruption of external operation (surgical) wound, not elsewhere classified, initial encounter Postoperative wound infection ER Course 74-year-old female presents with a postoperative wound infection, culture sent from the wound, antibiotics held until surgery evaluation Patient admitted to Dr. Alex Laboratory Tests Test 07/09/20 19:20 White Blood Count 5.6 K/UL (4.8-10.8) Red Blood Count 5.00 M/UL (4.20-5.40) Hemoglobin 14.2 G/DL (12.0-16.0) Hematocrit 45.9 % (37.0-47.0) Mean Corpuscular Volume 92 FL (80-99) Mean Corpuscular Hemoglobin 28.4 PG (27.0-31.0) Mean Corpuscular Hemoglobin Concent 30.9 G/DL (32.0-36.0) L Red Cell Distribution Width 15.5 % (11.6-14.8) H Platelet Count 190 K/UL (150-450) Mean Platelet Volume 8.7 FL (6.5-10.1) Neutrophils (%) (Auto) 51.0 % (45.0-75.0) Lymphocytes (%) (Auto) 37.5 % (20.0-45.0) Monocytes (%) (Auto) 7.9 % (1.0-10.0) Eosinophils (%) (Auto) 2.6 % (0.0-3.0) Basophils (%) (Auto) 1.0 % (0.0-2.0) Erythrocyte Sedimentation Rate 15 MM/HR (0-30) Prothrombin Time 10.7 SEC (9.30-11.50) Prothrombin Time INR 1.0 (0.9-1.1) Activated Partial Thromboplast Time 27 SEC (23-33) Sodium Level 142 MMOL/L (136-145) Potassium Level 3.7 MMOL/L (3.5-5.1) Chloride Level 106 MMOL/L (98-107) Carbon Dioxide Level 29 MMOL/L (21-32) Anion Gap 7 mmol/L (5-15) Blood Urea Nitrogen 20 mg/dL (7-18) H Creatinine 1.0 MG/DL (0.55-1.30) Estimated Glomerular Filtration Rate 54.5 mL/min (>60) Glucose Level 90 MG/DL (74-106) Calcium Level 8.8 MG/DL (8.5-10.1) Total Bilirubin 0.4 MG/DL (0.2-1.0) Aspartate Amino Transferase (AST) 14 U/L (15-37) L Alanine Aminotransferase (ALT) 16 U/L (12-78) Alkaline Phosphatase 110 U/L (46-116) C-Reactive Protein, Quantitative < 0.4 mg/dL (0.00-0.90) Total Protein 7.6 G/DL (6.4-8.2) Albumin 3.5 G/DL (3.4-5.0) Globulin 4.1 g/dL Albumin/Globulin Ratio 0.9 (1.0-2.7) L Lipase 195 U/L (73-393) Microbiology Date/Time Source Procedure Growth Status 07/09/20 19:25 Nasopharynx SARS-CoV-2 RdRp Gene Assay - Final Complete EKG Diagnostic Results Troponin ordered: No EKG Time: 19:25 EP Interpretation: NSR, rate 65, QTc 447, no acute ST elevations normal axis Rhythm Strip Diag. Results Rhythm Strip Time: 21:03 EP Interpretation: yes Rate: 66 Rhythm: NSR, no PVC's, no ectopy CT/MRI/US Diagnostic Results CT/MRI/US Diagnostic Results : Impression Procedure: CT Abdomen Pelvis w/Contrast EXAM: CT Abdomen and Pelvis With Intravenous Contrast CLINICAL HISTORY: ABD PAIN TECHNIQUE: Axial computed tomography images of the abdomen and pelvis with intravenous contrast. CTDI is 6.3 mGy and DLP is 318.9 mGy-cm. One or more of the following dose reduction techniques were used: automated exposure control, adjustment of the mA and/or kV according to patient size, use of iterative reconstruction technique. COMPARISON: No relevant prior studies available. FINDINGS: Lung bases: Mild atelectasis in the lung bases. ABDOMEN: Liver: Unremarkable. No mass. Gallbladder and bile ducts: Unremarkable. No calcified stones. No ductal dilation. Pancreas: Unremarkable. No mass. No ductal dilation. Spleen: Unremarkable. No splenomegaly. Adrenals: Unremarkable. No mass. Kidneys and ureters: There are 2 punctate nonobstructing stones in the lower pole of the right kidney. No hydronephrosis. Stomach and bowel: Unremarkable. No obstruction. No mucosal thickening. PELVIS: Appendix: The appendix is not well visualized. No findings to suggest acute appendicitis. Bladder: Unremarkable. No mass. Reproductive: Unremarkable as visualized. ABDOMEN and PELVIS: Intraperitoneal space: Postsurgical changes of the stomach of what appears to be gastric sleeve. No bowel wall thickening, free fluid or fluid air. Bones/joints: [facility] disease of the lower thoracic spine. No acute fracture. No dislocation. Soft tissues: There is a ventral abdominal scar with soft tissue thickening and stranding of the subcutaneous adipose tissues along the left rectus abdominus muscle. There is no fluid collection or rim enhancement to suggest an organized abscess. Vasculature: Unremarkable. No abdominal aortic aneurysm. Lymph nodes: Unremarkable. No enlarged lymph nodes. IMPRESSION: 1. Surgical scar of the ventral abdomen with associated fat stranding, but no fluid collection or rim enhancement to suggest organized abscess formation. 2. Post surgical changes of the stomach. No free fluid or free air. 3. Nephrolithiasis without evidence of hydronephrosis. Dictated By: Sade Myers M.D Electronically Signed By:Sade Myers M.D Signed Date/Time07/09/202044 CC: Sanjay Davis MD Last Vital Signs Date Time Temp Pulse Resp B/P (MAP) Pulse Ox O2 Delivery O2 Flow Rate FiO2 07/09/20 19:05 98.2 68 20 127/77 98 Room Air Disposition: ADMITTED INPATIENT Condition: Stable Referrals: NON PHYSICIAN (PCP) Sanjay Davis MD Jul 09, 2020 21:04
[2020-07-09] MEDS ORDERED: clonazePAM 0.5mg tab ORAL SCH (21:15)
[2020-07-09] MEDS ORDERED: Miralax 17gm pkt ORAL PRN (21:15)
[2020-07-09] MEDS ORDERED: Nitroglycerin Subl 0.4mg tab SL PRN (21:15)
--- NOTE | 2020-07-09 21:20 | NUR ---
ED Nurse Note: gave report to José ROLDAN
[2020-07-09] MEDS ORDERED: clonazePAM 0.5mg tab ORAL PRN (21:25)
--- NOTE | 2020-07-09 21:30 | NUR ---
TRANSFER TO FLOOR: Patient transferred to [facility] via [facility] in stable condition as ordered, per dr. Johnson. Report given to José ROLDAN. Belongings sent with patient
--- NOTE | 2020-07-09 21:35 | NUR ---
NURSE NOTES: Received patient from emergency department. Patient is ambulatory and denies any pain as of the moment. Patient is mainly [place] speaking but can understand some occitan. VSS BP 149/78 HR 67 T 97.0. Explained to patient that she is NPO and given IVF as ordered. Medication reconciliation and wound culture was done in the ED. Pending results
[2020-07-09] MEDS: D5 1/2NS 1,000 ML IV SCH (21:56)
[2020-07-09] MEDS: Zolpidem 5mg tab ORAL PRN (22:58)
--- NOTE | 2020-07-09 23:54 | NUR ---
NURSE NOTES: Patient requested Klonopin to help with anxiety, later on she also requested for Ambien. VSS Stable and side rails padded, as pt has hx of seizures.
[2020-07-10] VITALS (16 sets, daily range): BP systolic 117–160; BP diastolic 69–83
--- NOTE | 2020-07-10 06:33 | NUR ---
NURSE HAND-OFF: Important Events on Shift:Received patient as an admission last night. Patient very pleasant and independent. Patient denies any pain as of the moment. Patient Status: Stable Diet: NPO Pending Orders: [] Pending Results/Labs:[] Pending MD notification:[] Latest Vital Signs: Temperature 97.4 , Pulse 74 , B/P 117 /75 , Respiratory Rate 18 , O2 SAT 97 , Room Air, O2 Flow Rate . Vital Sign Comment: [] Latest Bond Fall Score: 35 Fall Risk: Medium Risk Safety Measures: Call light Within Reach, Bed Alarm , Side Rails Side Rails x2, Bed position Low and Locked. Fall Precautions: Report given to Terrence ROLDAN .
[2020-07-10 06:57] LABS: EOSINOPHILS % (AUTO) 2.9 % (0.0-3.0); HEMATOCRIT 45.7 % (37.0-47.0); HEMOGLOBIN 14.2 G/DL (12.0-16.0); LYMPHOCYTES % (AUTO) 41.1 % (20.0-45.0); MEAN CORPUSCULAR VOLUME 93 FL (80-99); MONOCYTES % (AUTO) 9.8 % (1.0-10.0); NEUTROPHILS % (AUTO) 45.3 % (45.0-75.0); PLATELET COUNT 151 K/UL (150-450); RED CELL DISTRIBUTION WIDTH 15.3 % (11.6-14.8); WHITE BLOOD COUNT 4.4 K/UL (4.8-10.8)
[2020-07-10 07:31] LABS: ALANINE AMINOTRANSFERASE 21 U/L (12-78); ALBUMIN/GLOBULIN RATIO 0.8 (1.0-2.7); ALKALINE PHOSPHATASE 87 U/L (46-116); AMYLASE 59 U/L (25-115); ANION GAP 8 mmol/L (5-15); ASPARTATE AMINO TRANSFERASE 21 U/L (15-37); BILIRUBIN,TOTAL 0.5 MG/DL (0.2-1.0); BLOOD UREA NITROGEN 16 mg/dL (7-18); CALCIUM 8.1 MG/DL (8.5-10.1); CARBON DIOXIDE 24 MMOL/L (21-32); CHLORIDE 110 MMOL/L (98-107); CREATININE 0.8 MG/DL (0.55-1.30); POTASSIUM 3.5 MMOL/L (3.5-5.1); SODIUM 142 MMOL/L (136-145)
--- NOTE | 2020-07-10 07:45 | NUR ---
NURSE NOTES: Pt lying in bed w/bed in lowest position and call light within reach. Pt A&Ox4, VSS, and in no apparent distress. IV site intact/asymptomatic w/IVF infusing and surgical dressing C/D/I. Will continue to monitor.
[2020-07-10] MEDS: ceFAZolin 1gm in D5W 55ml IVPB SCH ×3 (08:55→23:14)
[2020-07-10] MEDS: D5 1/2NS 1,000 ML IV SCH ×2 (08:56→23:05)
[2020-07-10] MEDS: Pantoprazole Inj IVP SCH (08:56)
[2020-07-10] MEDS: Heparin 5000 units/ml inj SUBQ SCH ×2 (08:57→21:25)
[2020-07-10] MEDS ORDERED: TOPIRAMATE100 MG ORAL (09:02)
[2020-07-10] MEDS ORDERED: Midazolam 2mg/2ml Inj ONE (10:05)
[2020-07-10] MEDS ORDERED: fentaNYL 100 mcg/2 mL IV ONE (10:05)
[2020-07-10] MEDS ORDERED: Succinylcholine 20mg/ml 10ml vial ONE (10:19)
[2020-07-10] MEDS ORDERED: Rocuronium Bromide 50mg/5ml Inj IV ONE (10:19)
--- NOTE | 2020-07-10 11:04 | Pre-Procedure Note/Attestation ---
Pre-Procedure Note/Attestation Complete Prior to Procedure Procedure Narrative: abdominal wound exploration, possible debridement, washout Indications for Procedure Pre-Operative Diagnosis: midline abdominal wound infection Attestation I attest that I discussed the nature of the procedure; its benefits; risks and complications; and alternatives (and the risks and benefits of such alternatives), prior to the procedure, with the patient (or the patient's legal medical claims representative). I attest that, if there was a reasonable possibility of needing a blood transfusion, the patient (or the patient's legal medical claims representative) was given the [facility] standardized written summary, pursuant to the [place] Blood Safety Act ([place] Health and Safety Code # 1645, as amended). I attest that I re-evaluated the patient just prior to the surgery and that there has been no change in the patient's H&P, except as documented below: Rafiq Rodriguez Jul 10, 2020 11:04
--- NOTE | 2020-07-10 11:06 | Consultation ---
History of Present Illness General Date patient seen: Jul 10, 2020 Reason for Hospitalization: Skin Rash/Abscess Present Illness HPI 74F s/p in february 2020 recovering. midline wound not healing and recently noted purulent drainage as per home health. pain. discomfort. came to eval. admitted. recommend OR exploration. please refer to operative note for details Allergies: Coded Allergies: No Known Allergies (Unverified , 03/10/20) COVID-19 Screening Contact w/high risk pt: No Experienced COVID-19 symptoms?: No Medication History Scheduled Aspirin* (Aspir 81*), 81 MG ORAL BID, (Reported) Clonazepam* (Klonopin*), 0.5 MG ORAL Q6H, (Reported) Fesoterodine Fumarate (Toviaz), 8 MG PO DAILY, (Reported) Levetiracetam (Keppra), 1,000 MG ORAL BID, (Reported) Levothyroxine Sodium* (Synthroid*), 100 MCG ORAL DAILY, (Reported) Nitrofurantoin Monohyd/M-Cryst* (Macrobid 100 Mg*), 100 MG ORAL DAILY, (Reported) Potassium Chloride* (K-Dur*), 20 MEQ ORAL DAILY, (Reported) Topiramate* (Topamax*), 100 MG ORAL TWICE A DAY, (Reported) Scheduled PRN Zolpidem Tartrate* (Ambien*), 10 MG ORAL BEDTIME PRN for Insomnia, (Reported) Patient History History Provided By: Patient, Family Member, Medical Record, PMD Healthcare decision maker N Resuscitation status Advanced Directive on File Past Medical/Surgical History Past Medical/Surgical History: (1) Colonic fistula (2) Postoperative wound dehiscence (3) Postoperative wound cellulitis (4) Postoperative wound infection Review of Systems Review of Symptoms General ROS: no weight loss or fever Psychological ROS: no depression or mood changes, no memory loss Ophthalmic ROS: no visual changes or eye irritation ENT ROS: no nasal congestion, hearing loss, dizziness Allergy and Immunology ROS: no allergic symptoms or urticaria Hematological and Lymphatic ROS: no swollen glands, unusual bleeding or bruising Endocrine ROS: no polyuria, polydipsia, weight changes, temperature intolerance Respiratory ROS: no cough, shortness of breath, or wheezing Cardiovascular ROS: no chest pain or dyspnea on exertion Gastrointestinal ROS: denies abdominal pain, bright red blood in stool. Musculoskeletal ROS: no myalgias or arthralgias Neurological ROS: no TIA or stroke symptoms Dermatological ROS: no new or changing skin lesions, rashes or pruritis Physical Exam Physical Exam General appearance: alert, cooperative, no distress, appears stated age Head: Normocephalic, without obvious abnormality, atraumatic Eyes: conjunctivae/corneas clear. PERRL, EOM's intact. Fundi benign Throat: Lips, mucosa, and tongue normal. Teeth and gums normal Neck: supple, symmetrical, trachea midline, no adenopathy, thyroid: not enlarged, symmetric, no tenderness/mass/nodules, no carotid bruit and no JVD Lungs: clear to auscultation bilaterally Heart: regular rate and rhythm, S1, S2 normal, no murmur, click, rub or gallop Abdomen: soft, non-tender. Bowel sounds normal. No masses, no organomegaly midline wound open Extremities: extremities normal, atraumatic, no cyanosis or edema Pulses: 2+ and symmetric Skin: Skin color, texture, turgor normal. No rashes or lesions Neurologic: Grossly normal Last 24 Hour Vital Signs Date Time Temp Pulse Resp B/P (MAP) Pulse Ox O2 Delivery O2 Flow Rate FiO2 07/10/20 08:00 97.7 61 18 139/79 (99) 93 07/10/20 04:00 97.4 18 117/75 (89) 97 07/10/20 00:00 97.9 18 135/69 (91) 98 07/09/20 21:30 97.5 74 20 129/68 98 Room Air 07/09/20 19:05 98.2 68 20 127/77 98 Room Air 07/09/20 19:05 97.9 80 20 129/76 (93) 95 Room Air Intake and Output 07/09/20 07/10/20 19:00 07:00 Intake Total 240 ml Balance 240 ml Intake Oral 240 ml # Voids 3 Laboratory Tests Test 07/09/20 19:20 07/10/20 05:15 White Blood Count 5.6 K/UL (4.8-10.8) 4.4 K/UL (4.8-10.8) L Red Blood Count 5.00 M/UL (4.20-5.40) 4.90 M/UL (4.20-5.40) Hemoglobin 14.2 G/DL (12.0-16.0) 14.2 G/DL (12.0-16.0) Hematocrit 45.9 % (37.0-47.0) 45.7 % (37.0-47.0) Mean Corpuscular Volume 92 FL (80-99) 93 FL (80-99) Mean Corpuscular Hemoglobin 28.4 PG (27.0-31.0) 29.0 PG (27.0-31.0) Mean Corpuscular Hemoglobin Concent 30.9 G/DL (32.0-36.0) L 31.0 G/DL (32.0-36.0) L Red Cell Distribution Width 15.5 % (11.6-14.8) H 15.3 % (11.6-14.8) H Platelet Count 190 K/UL (150-450) 151 K/UL (150-450) Mean Platelet Volume 8.7 FL (6.5-10.1) 8.4 FL (6.5-10.1) Neutrophils (%) (Auto) 51.0 % (45.0-75.0) 45.3 % (45.0-75.0) Lymphocytes (%) (Auto) 37.5 % (20.0-45.0) 41.1 % (20.0-45.0) Monocytes (%) (Auto) 7.9 % (1.0-10.0) 9.8 % (1.0-10.0) Eosinophils (%) (Auto) 2.6 % (0.0-3.0) 2.9 % (0.0-3.0) Basophils (%) (Auto) 1.0 % (0.0-2.0) 1.0 % (0.0-2.0) Erythrocyte Sedimentation Rate 15 MM/HR (0-30) Prothrombin Time 10.7 SEC (9.30-11.50) Prothromb Time International Ratio 1.0 (0.9-1.1) Activated Partial Thromboplast Time 27 SEC (23-33) 27 SEC (23-33) Sodium Level 142 MMOL/L (136-145) 142 MMOL/L (136-145) Potassium Level 3.7 MMOL/L (3.5-5.1) 3.5 MMOL/L (3.5-5.1) Chloride Level 106 MMOL/L (98-107) 110 MMOL/L (98-107) H Carbon Dioxide Level 29 MMOL/L (21-32) 24 MMOL/L (21-32) Anion Gap 7 mmol/L (5-15) 8 mmol/L (5-15) Blood Urea Nitrogen 20 mg/dL (7-18) H 16 mg/dL (7-18) Creatinine 1.0 MG/DL (0.55-1.30) 0.8 MG/DL (0.55-1.30) Estimat Glomerular Filtration Rate 54.5 mL/min (>60) > 60 mL/min (>60) Glucose Level 90 MG/DL (74-106) 89 MG/DL (74-106) Calcium Level 8.8 MG/DL (8.5-10.1) 8.1 MG/DL (8.5-10.1) L Total Bilirubin 0.4 MG/DL (0.2-1.0) 0.5 MG/DL (0.2-1.0) Aspartate Amino Transf (AST/SGOT) 14 U/L (15-37) L 21 U/L (15-37) Alanine Aminotransferase (ALT/SGPT) 16 U/L (12-78) 21 U/L (12-78) Alkaline Phosphatase 110 U/L (46-116) 87 U/L (46-116) C-Reactive Protein, Quantitative < 0.4 mg/dL (0.00-0.90) Total Protein 7.6 G/DL (6.4-8.2) 6.6 G/DL (6.4-8.2) Albumin 3.5 G/DL (3.4-5.0) 3.0 G/DL (3.4-5.0) L Globulin 4.1 g/dL 3.6 g/dL Albumin/Globulin Ratio 0.9 (1.0-2.7) L 0.8 (1.0-2.7) L Lipase 195 U/L (73-393) 146 U/L (73-393) Amylase Level 59 U/L (25-115) Microbiology Date/Time Source Procedure Growth Status 07/09/20 19:25 Nasopharynx SARS-CoV-2 RdRp Gene Assay - Final Complete Height (Feet): 5 Height (Inches): 5.00 Weight (Pounds): 170 Medications Current Medications Medications (Trade) Dose Ordered Sig/Dorian Route PRN Reason Start Time Stop Time Status Last Admin Dose Admin Acetaminophen (Tylenol) 650 mg Q4H PRN ORAL fever 07/09/20 21:15 08/08/20 21:14 Cefazolin Sodium 1 gm/Dextrose 55 ml @ 110 mls/hr Q8H IVPB 07/10/20 08:00 07/17/20 07:59 07/10/20 08:55 Clonazepam (KlonoPIN) 0.5 mg Q6H PRN ORAL anxiety 07/09/20 21:25 07/16/20 21:24 07/09/20 22:14 Dextrose (Dextrose 50%) 25 ml Q30M PRN IV Hypoglycemia 07/09/20 21:15 10/07/20 21:14 Dextrose (Dextrose 50%) 50 ml Q30M PRN IV Hypoglycemia 07/09/20 21:15 10/07/20 21:14 Dextrose/Sodium Chloride 1,000 ml @ 75 mls/hr [id number] IV 07/09/20 21:16 08/08/20 21:15 07/10/20 08:56 Diphenhydramine HCl (Benadryl) 25 mg Q6H PRN ORAL Itching/Pruritis 07/09/20 21:15 08/08/20 21:14 Heparin Sodium (Porcine) (Heparin 5000 units/ml) 5,000 units EVERY 12 HOURS SUBQ 07/10/20 09:00 08/24/20 08:59 Iohexol (OMNIPAQUE-300 100ml) 100 ml NOW PRN INJ Radiology Procedure 07/09/20 19:15 07/11/20 19:14 Levetiracetam (Keppra) 1,000 mg Q12HR ORAL 07/10/20 09:00 08/09/20 08:59 07/10/20 08:55 Levothyroxine Sodium (Synthroid) 100 mcg Q24H ORAL 07/10/20 06:30 08/09/20 06:29 07/10/20 05:59 Nitroglycerin (Ntg) 0.4 mg Q5M X 3 DOSES PRN SL Prn Chest Pain 07/09/20 21:15 08/08/20 21:14 Ondansetron HCl (Zofran) 4 mg Q6H PRN IVP Nausea & Vomiting 07/09/20 21:15 08/08/20 21:14 Pantoprazole (Protonix) 40 mg DAILY IVP 07/10/20 09:00 08/09/20 08:59 07/10/20 08:56 Polyethylene Glycol (Miralax) 17 gm HSPRN PRN ORAL Constipation 07/09/20 21:15 08/08/20 21:14 Temazepam (Restoril) 15 mg HSPRN PRN ORAL Insomnia 07/09/20 21:15 07/16/20 21:14 Zolpidem Tartrate (Ambien) 5 mg BEDTIME PRN ORAL Insomnia 07/09/20 21:15 07/16/20 21:14 07/09/20 22:58 Assessment/Plan Problem List: (1) Postoperative wound dehiscence Assessment & Plan: please refer to operative note for details to OR npo iv fluids frank bx labs consent ICD Codes: T81.31XA - Disruption of external operation (surgical) wound, not elsewhere classified, initial encounter SNOMED: 970604042, [id number] Qualifiers: Qualified Codes: T81.31XA - Disruption of external operation (surgical) wound, not elsewhere classified, initial encounter (2) Postoperative wound cellulitis ICD Codes: T81.49XA - Infection following a procedure, other surgical site, initial encounter SNOMED: 569544622, [id number] (3) Postoperative wound infection ICD Codes: T81.49XA - Infection following a procedure, other surgical site, initial encounter SNOMED: 95200557, 580340890 (4) Colonic fistula ICD Codes: K63.2 - Fistula of intestine SNOMED: 175144520 Rafiq Rodriguez Jul 10, 2020 11:06
--- NOTE | 2020-07-10 11:11 | Anethesia Preoperative Eval ---
Anesthesia Pre-op PMH/ROS General Date of Evaluation: Jul 10, 2020 Time of Evaluation: 11:07 Anesthesiologist: Ronan ASA Score: ASA 2 Mallampati Score Class I : Soft palate, uvula, fauces, pillars visible Class II: Soft palate, uvula, fauces visible Class III: Soft palate, base of uvula visible Class IV: Only hard plate visible Mallampati Classification: Class II Surgeon: Caitlyn Diagnosis: Chronic abdominal wound Surgical Procedure: Abdominal wound revision Anesthesia History: none Family History: no anesthesia problems Allergies: Coded Allergies: No Known Allergies (Unverified , 03/10/20) Medications: see eMAR Patient NPO?: Yes Past Medical History Cardiovascular: Reports: HTN - borderline; Denies: CAD, IA, valve dz, arrhythmia, other Pulmonary: Denies: asthma, COPD, BETTY, other Gastrointestinal/Genitourinary: Reports: GERD, other - kidney stones, recurrent bowel fistula; Denies: CRI, ESRD Neurologic/Psychiatric: Denies: dementia, CVA, depression/anxiety, TIA, other Endocrine: Reports: hypothyroidism; Denies: DM, steroids, other HEENT: Reports: cataract (L), cataract (R); Denies: glaucoma, [place] (L), [place] (R), other Hematology/Immune: Reports: anemia - mild; Denies: DVT, bleeding disorder, other Musculoskeletal/Integumentary: Denies: OA, RA, DJD, DDD, edema, other PMH Narrative: as above PSxH Narrative: see H&P Anesthesia Pre-op Phys. Exam Physician Exam Last Vital Signs Date Time Temp Pulse Resp B/P (MAP) Pulse Ox O2 Delivery O2 Flow Rate FiO2 07/10/20 08:00 97.7 61 18 139/79 (99) 93 07/09/20 21:30 Room Air Constitutional: NAD Neurologic: CN 2-12 intact Cardiovascular: RRR, no M/R/G Respiratory: CTA Gastrointestinal: S/NT/ND Airway Exam Mallampati Score: Class II MO: full Neck: flexible ROM: full Teeth: missing Dentures: no upper, no lower Anesthesia Pre-op A/P Labs Hematology Test 07/09/20 19:20 07/10/20 05:15 White Blood Count 5.6 K/UL (4.8-10.8) 4.4 K/UL (4.8-10.8) L Red Blood Count 5.00 M/UL (4.20-5.40) 4.90 M/UL (4.20-5.40) Hemoglobin 14.2 G/DL (12.0-16.0) 14.2 G/DL (12.0-16.0) Hematocrit 45.9 % (37.0-47.0) 45.7 % (37.0-47.0) Mean Corpuscular Volume 92 FL (80-99) 93 FL (80-99) Mean Corpuscular Hemoglobin 28.4 PG (27.0-31.0) 29.0 PG (27.0-31.0) Mean Corpuscular Hemoglobin Concent 30.9 G/DL (32.0-36.0) L 31.0 G/DL (32.0-36.0) L Red Cell Distribution Width 15.5 % (11.6-14.8) H 15.3 % (11.6-14.8) H Platelet Count 190 K/UL (150-450) 151 K/UL (150-450) Mean Platelet Volume 8.7 FL (6.5-10.1) 8.4 FL (6.5-10.1) Neutrophils (%) (Auto) 51.0 % (45.0-75.0) 45.3 % (45.0-75.0) Lymphocytes (%) (Auto) 37.5 % (20.0-45.0) 41.1 % (20.0-45.0) Monocytes (%) (Auto) 7.9 % (1.0-10.0) 9.8 % (1.0-10.0) Eosinophils (%) (Auto) 2.6 % (0.0-3.0) 2.9 % (0.0-3.0) Basophils (%) (Auto) 1.0 % (0.0-2.0) 1.0 % (0.0-2.0) Erythrocyte Sedimentation Rate 15 MM/HR (0-30) Coagulation Test 07/09/20 19:20 07/10/20 05:15 Prothrombin Time 10.7 SEC (9.30-11.50) Prothromb Time International Ratio 1.0 (0.9-1.1) Activated Partial Thromboplast Time 27 SEC (23-33) 27 SEC (23-33) Chemistry Test 07/09/20 19:20 07/10/20 05:15 Sodium Level 142 MMOL/L (136-145) 142 MMOL/L (136-145) Potassium Level 3.7 MMOL/L (3.5-5.1) 3.5 MMOL/L (3.5-5.1) Chloride Level 106 MMOL/L (98-107) 110 MMOL/L (98-107) H Carbon Dioxide Level 29 MMOL/L (21-32) 24 MMOL/L (21-32) Anion Gap 7 mmol/L (5-15) 8 mmol/L (5-15) Blood Urea Nitrogen 20 mg/dL (7-18) H 16 mg/dL (7-18) Creatinine 1.0 MG/DL (0.55-1.30) 0.8 MG/DL (0.55-1.30) Estimat Glomerular Filtration Rate 54.5 mL/min (>60) > 60 mL/min (>60) Glucose Level 90 MG/DL (74-106) 89 MG/DL (74-106) Calcium Level 8.8 MG/DL (8.5-10.1) 8.1 MG/DL (8.5-10.1) L Total Bilirubin 0.4 MG/DL (0.2-1.0) 0.5 MG/DL (0.2-1.0) Aspartate Amino Transf (AST/SGOT) 14 U/L (15-37) L 21 U/L (15-37) Alanine Aminotransferase (ALT/SGPT) 16 U/L (12-78) 21 U/L (12-78) Alkaline Phosphatase 110 U/L (46-116) 87 U/L (46-116) C-Reactive Protein, Quantitative < 0.4 mg/dL (0.00-0.90) Total Protein 7.6 G/DL (6.4-8.2) 6.6 G/DL (6.4-8.2) Albumin 3.5 G/DL (3.4-5.0) 3.0 G/DL (3.4-5.0) L Globulin 4.1 g/dL 3.6 g/dL Albumin/Globulin Ratio 0.9 (1.0-2.7) L 0.8 (1.0-2.7) L Lipase 195 U/L (73-393) 146 U/L (73-393) Amylase Level 59 U/L (25-115) Studies Pre-op Studies: EKG - SR Risk Assessment & Plan Assessment: ASA 2 Plan: GA with ETT Status Change Before Surgery: No Pre-Antibiotics Drug: Ancef 1gr. Given Within 1 Hr of Incision: Yes Time Given: 11:20 John Ferraro MD Jul 10, 2020 11:11
--- NOTE | 2020-07-10 11:15 | NUR ---
NURSE NOTES: Pt taken down via hospital bed to OR; consent to be obtained downstairs; pt's belongings left at bedside.
[2020-07-10] MEDS ORDERED: NS Irrig 1000ml IRRIG ONE ×3 (11:32→12:23)
[2020-07-10] MEDS ORDERED: Bacitracin 50000 Units Vial ONE (11:33)
[2020-07-10] MEDS ORDERED: DiphenhydrAMINE 50mg/ml Inj IVP PRN (12:00)
[2020-07-10] MEDS ORDERED: LR 1000ml 1,000 ML IVLG SCH (12:00)
[2020-07-10] MEDS ORDERED: Hydromorphone 0.5mg/0.5ml inj IVP PRN (12:00)
[2020-07-10] MEDS ORDERED: Ketorolac 30mg Inj IV PRN (12:00)
[2020-07-10] MEDS ORDERED: Bacitracin Oint 15gm Tube TOPIC ONE (12:40)
--- NOTE | 2020-07-10 12:57 | Brief Operative Note ---
Immediate Post Operative Note Operative Note Pre-op Diagnosis: midline abdominal wound infection Procedure: 1. abd wall wound exploration 2. abd wall wound fistula excision 3. adjacent tissue transfer with skin flap for complex multilayer closure 4. drain placement Post-op Diagnosis: same as pre-op plus - with wound fistula Surgeon: rafiq rodriguez Anesthesiologist: ryan Anesthesia: general Specimen: yes Complications: none Condition: stable Fluids: see Estimated Blood Loss: minimal Drains: PURA Implant(s) used?: No Rafiq Rodriguez Jul 10, 2020 12:57
[2020-07-10] MEDS ORDERED: Sterile Water Irrig 1000ml IRRIG ONE (13:00)
[2020-07-10] MEDS ORDERED: LR 1000ml ONE ×2 (13:00)
[2020-07-10] MEDS ORDERED: NS Irrig 1000ml ONE (13:00)
--- NOTE | 2020-07-10 13:06 | Immediate Post-Op Evaluation ---
Immediate Post-Op Evalulation Immediate Post-Op Evalulation Procedure: Revision and closure of abdominal wound Date of Evaluation: Jul 10, 2020 Time of Evaluation: 13:05 IV Fluids: 700 Blood Products: none Estimated Blood Loss: <50 Urinary Output: none Blood Pressure Systolic: 135 Blood Pressure Diastolic: 76 Pulse Rate: 64 Respiratory Rate: 20 O2 Sat by Pulse Oximetry: 98 Temperature (Fahrenheit): 97.6 Pain Score (1-10): 1 Nausea: No Vomiting: No Complications none Patient Status: reacts, patent, extubated, none Hydration Status: adequate John Ferraro MD Jul 10, 2020 13:06
--- NOTE | 2020-07-10 13:13 | NUR ---
RD ASSESSMENT & RECOMMENDATIONS SEE CARE ACTIVITY FOR COMPLETE ASSESSMENT DAILY ESTIMATED NEEDS: Needs based on wound/ 62kg abw 25-30 kcals/kg 0807-7542 total kcals 1.25-1.8 g protein/kg 77-111 g total protein 25-30 mL/kg 2508-6400 total fluid mLs NUTRITION DIAGNOSIS: Increased kcal/prot needs R/T wound healing as evidenced by admitted w/ nonhealing postoperative wound dehiscence @ abdomen, undergoing wound exploration, possible debridement. CURRENT DIET:Regular diet ordered PO DIET RECOMMENDATIONS: REGULAR diet as tolerated ADDITIONAL RECOMMENDATIONS: 1) Calibrated bedscale wt 2) Wound healing: add MVI x 1, Vit C 500mg BID, ZnSO4 220mg QD x 10 days Benito BID 3) Monitor PO tolerance and acceptance
--- NOTE | 2020-07-10 13:39 | 48 Hour Post Anesthesia Eval ---
Post Anesthesia Evaluation Procedure: Revision and closure of abdominal wound Date of Evaluation: Jul 10, 2020 Time of Evaluation: 13:38 Blood Pressure Systolic: 144 0: 74 Pulse Rate: 62 Respiratory Rate: 18 Temperature (Fahrenheit): 97.8 O2 Sat by Pulse Oximetry: 99 Nausea: No Vomiting: No Pain Intensity: 2 Hydration Status: adequate Cardiopulmonary Status: stable Mental Status/LOC: patient returned to baseline Follow-up Care/Observations: n/a Post-Anesthesia Complications: none Follow-up care needed: N/A John Ferraro MD Jul 10, 2020 13:39
--- NOTE | 2020-07-10 14:15 | History & Physical ---
History and Physical History & Physicial -[id number] Cricket Johnson MD Jul 10, 2020 14:15
--- NOTE | 2020-07-10 14:30 | NUR ---
NURSE NOTES: Pt came up to unit via hospital bed from PACU in stable condition. Pt A&Ox4, VSS, and c/o minimal pain. IV site intact/asymptomatic; surgical dressing C/D/I; and PURA drain to bulb suction. Will continue to monitor.
--- NOTE | 2020-07-10 15:17 | Consultation ---
History of Present Illness General Date patient seen: Jul 10, 2020 Chief Complaint: Skin Rash/Abscess Present Illness HPI 74-year-old female with hx of seizures, HTN, abdominal surgery February 2020, presented to ER with chronic abdominal wound infection, no aggravating alleviating factors severity is mild. Pt is admitted for further management. Allergies: Coded Allergies: No Known Allergies (Unverified , 03/10/20) Medication History Scheduled Aspirin* (Aspir 81*), 81 MG ORAL BID, (Reported) Clonazepam* (Klonopin*), 0.5 MG ORAL Q6H, (Reported) Fesoterodine Fumarate (Toviaz), 8 MG PO DAILY, (Reported) Levetiracetam (Keppra), 1,000 MG ORAL BID, (Reported) Levothyroxine Sodium* (Synthroid*), 100 MCG ORAL DAILY, (Reported) Nitrofurantoin Monohyd/M-Cryst* (Macrobid 100 Mg*), 100 MG ORAL DAILY, (Reporte d) Potassium Chloride* (K-Dur*), 20 MEQ ORAL DAILY, (Reported) Topiramate* (Topamax*), 100 MG ORAL TWICE A DAY, (Reported) Scheduled PRN Zolpidem Tartrate* (Ambien*), 10 MG ORAL BEDTIME PRN for Insomnia, (Reported) Patient History Healthcare decision maker N Resuscitation status Advanced Directive on File Past Medical/Surgical History Past Medical/Surgical History: (1) History of hypertension (2) Seizure disorder (3) Colonic fistula Review of Systems All Other Systems: negative except mentioned in HPI Physical Exam General Appearance: WD/WN, no apparent distress Lines, tubes and drains: peripheral HEENT: normocephalic, anicteric Neck: non-tender, normal alignment, normal inspection Respiratory/Chest: chest wall non-tender, lungs clear, normal breath sounds Breasts: no masses Cardiovascular/Chest: normal peripheral pulses, normal rate, regular rhythm Abdomen: normal bowel sounds Genitourinary/Rectal: normal genital exam Extremities: normal range of motion Last 24 Hour Vital Signs Date Time Temp Pulse Resp B/P (MAP) Pulse Ox O2 Delivery O2 Flow Rate FiO2 07/10/20 15:00 97.7 61 16 131/71 (91) 97 07/10/20 14:30 97.7 61 16 134/73 (93) 93 07/10/20 14:30 Room Air 07/10/20 14:15 97.3 60 17 139/72 100 Room Air 07/10/20 14:08 97.3 07/10/20 14:00 58 15 141/73 100 Room Air 07/10/20 13:45 58 18 152/76 100 Simple Mask 6 07/10/20 13:39 62 18 99 07/10/20 13:30 57 19 160/74 100 Simple Mask 6 07/10/20 13:20 62 16 144/81 100 Simple Mask 6 07/10/20 13:10 64 18 153/74 100 Simple Mask 6 07/10/20 13:06 64 20 98 07/10/20 13:05 65 20 154/73 100 Simple Mask 6 07/10/20 12:59 97.6 74 23 155/83 100 Simple Mask 6 07/10/20 09:00 Room Air 07/10/20 08:00 97.7 61 18 139/79 (99) 93 07/10/20 04:00 97.4 18 117/75 (89) 97 07/10/20 00:00 97.9 18 135/69 (91) 98 07/09/20 21:30 97.5 74 20 129/68 98 Room Air 07/09/20 19:05 98.2 68 20 127/77 98 Room Air 07/09/20 19:05 97.9 80 20 129/76 (93) 95 Room Air Intake and Output 07/09/20 07/10/20 19:00 07:00 Intake Total 240 ml Balance 240 ml Intake Oral 240 ml # Voids 3 Laboratory Tests Test 07/09/20 19:20 07/10/20 05:15 White Blood Count 5.6 K/UL (4.8-10.8) 4.4 K/UL (4.8-10.8) L Red Blood Count 5.00 M/UL (4.20-5.40) 4.90 M/UL (4.20-5.40) Hemoglobin 14.2 G/DL (12.0-16.0) 14.2 G/DL (12.0-16.0) Hematocrit 45.9 % (37.0-47.0) 45.7 % (37.0-47.0) Mean Corpuscular Volume 92 FL (80-99) 93 FL (80-99) Mean Corpuscular Hemoglobin 28.4 PG (27.0-31.0) 29.0 PG (27.0-31.0) Mean Corpuscular Hemoglobin Concent 30.9 G/DL (32.0-36.0) L 31.0 G/DL (32.0-36.0) L Red Cell Distribution Width 15.5 % (11.6-14.8) H 15.3 % (11.6-14.8) H Platelet Count 190 K/UL (150-450) 151 K/UL (150-450) Mean Platelet Volume 8.7 FL (6.5-10.1) 8.4 FL (6.5-10.1) Neutrophils (%) (Auto) 51.0 % (45.0-75.0) 45.3 % (45.0-75.0) Lymphocytes (%) (Auto) 37.5 % (20.0-45.0) 41.1 % (20.0-45.0) Monocytes (%) (Auto) 7.9 % (1.0-10.0) 9.8 % (1.0-10.0) Eosinophils (%) (Auto) 2.6 % (0.0-3.0) 2.9 % (0.0-3.0) Basophils (%) (Auto) 1.0 % (0.0-2.0) 1.0 % (0.0-2.0) Erythrocyte Sedimentation Rate 15 MM/HR (0-30) Prothrombin Time 10.7 SEC (9.30-11.50) Prothromb Time International Ratio 1.0 (0.9-1.1) Activated Partial Thromboplast Time 27 SEC (23-33) 27 SEC (23-33) Sodium Level 142 MMOL/L (136-145) 142 MMOL/L (136-145) Potassium Level 3.7 MMOL/L (3.5-5.1) 3.5 MMOL/L (3.5-5.1) Chloride Level 106 MMOL/L (98-107) 110 MMOL/L (98-107) H Carbon Dioxide Level 29 MMOL/L (21-32) 24 MMOL/L (21-32) Anion Gap 7 mmol/L (5-15) 8 mmol/L (5-15) Blood Urea Nitrogen 20 mg/dL (7-18) H 16 mg/dL (7-18) Creatinine 1.0 MG/DL (0.55-1.30) 0.8 MG/DL (0.55-1.30) Estimat Glomerular Filtration Rate 54.5 mL/min (>60) > 60 mL/min (>60) Glucose Level 90 MG/DL (74-106) 89 MG/DL (74-106) Calcium Level 8.8 MG/DL (8.5-10.1) 8.1 MG/DL (8.5-10.1) L Total Bilirubin 0.4 MG/DL (0.2-1.0) 0.5 MG/DL (0.2-1.0) Aspartate Amino Transf (AST/SGOT) 14 U/L (15-37) L 21 U/L (15-37) Alanine Aminotransferase (ALT/SGPT) 16 U/L (12-78) 21 U/L (12-78) Alkaline Phosphatase 110 U/L (46-116) 87 U/L (46-116) C-Reactive Protein, Quantitative < 0.4 mg/dL (0.00-0.90) Total Protein 7.6 G/DL (6.4-8.2) 6.6 G/DL (6.4-8.2) Albumin 3.5 G/DL (3.4-5.0) 3.0 G/DL (3.4-5.0) L Globulin 4.1 g/dL 3.6 g/dL Albumin/Globulin Ratio 0.9 (1.0-2.7) L 0.8 (1.0-2.7) L Lipase 195 U/L (73-393) 146 U/L (73-393) Amylase Level 59 U/L (25-115) Microbiology Date/Time Source Procedure Growth Status 07/09/20 19:25 Nasopharynx SARS-CoV-2 RdRp Gene Assay - Final Complete 07/09/20 19:20 Abdomen Gram Stain - Final Resulted 07/09/20 19:20 Abdomen Wound Culture Pending Resulted Height (Feet): 5 Height (Inches): 5.00 Weight (Pounds): 170 Medications Current Medications Medications (Trade) Dose Ordered Sig/Dorian Route PRN Reason Start Time Stop Time Status Last Admin Dose Admin Acetaminophen (Tylenol) 650 mg Q4H PRN ORAL fever 07/09/20 21:15 08/08/20 21:14 Acetaminophen (Tylenol) 650 mg Q6H PRN ORAL Mild Pain (Pain Scale 1-3) 07/10/20 13:00 08/09/20 12:59 UNV Acetaminophen/ Hydrocodone Bitart ([place] 5/325) 1 tab Q4H PRN ORAL Moderate Pain (Pain Scale 4-6) 07/10/20 13:00 07/17/20 12:59 UNV Cefazolin Sodium 1 gm/Dextrose 55 ml @ 110 mls/hr Q8H IVPB 07/10/20 08:00 07/17/20 07:59 07/10/20 08:55 Clonazepam (KlonoPIN) 0.5 mg Q6H PRN ORAL anxiety 07/09/20 21:25 07/16/20 21:24 07/09/20 22:14 Dextrose (Dextrose 50%) 25 ml Q30M PRN IV Hypoglycemia 07/09/20 21:15 10/07/20 21:14 Dextrose (Dextrose 50%) 50 ml Q30M PRN IV Hypoglycemia 07/09/20 21:15 10/07/20 21:14 Dextrose/Sodium Chloride 1,000 ml @ 75 mls/hr [id number] IV 07/09/20 21:16 08/08/20 21:15 07/10/20 08:56 Diphenhydramine HCl (Benadryl) 25 mg Q15M PRN IVP Itching 07/10/20 12:00 07/10/20 18:00 Diphenhydramine HCl (Benadryl) 25 mg Q6H PRN ORAL Itching/Pruritis 07/09/20 21:15 08/08/20 21:14 Diphenhydramine HCl (Benadryl) 25 mg Q8H PRN ORAL Itching/Pruritis 07/10/20 13:00 08/09/20 12:59 UNV Docusate Sodium (Colace) 100 mg TWICE A DAY ORAL 07/10/20 18:00 08/09/20 17:59 UNV Heparin Sodium (Porcine) (Heparin 5000 units/ml) 5,000 units EVERY 12 HOURS SUBQ 07/10/20 09:00 08/24/20 08:59 Hydromorphone HCl (Dilaudid) 0.5 mg Q5M PRN IVP Severe Pain (Pain Scale 7-10) 07/10/20 12:00 07/10/20 18:00 07/10/20 13:38 Iohexol (OMNIPAQUE-300 100ml) 100 ml NOW PRN INJ Radiology Procedure 07/09/20 19:15 07/11/20 19:14 Ketorolac Tromethamine (Toradol 30mg) 30 mg Q1H PRN IV Severe Breakthru Pain (>7) 07/10/20 12:00 07/10/20 18:00 Lactated Ringer's 1,000 ml @ 10 mls/hr Q24H IVLG 07/10/20 12:00 07/10/20 18:00 Levetiracetam (Keppra) 1,000 mg Q12HR ORAL 07/10/20 09:00 08/09/20 08:59 07/10/20 08:55 Levothyroxine Sodium (Synthroid) 100 mcg Q24H ORAL 07/10/20 06:30 08/09/20 06:29 07/10/20 05:59 Magnesium Hydroxide (Mom) 30 ml BIDPRN PRN ORAL Constipation 07/10/20 13:00 08/09/20 12:59 UNV Morphine Sulfate (Morphine Sulfate) 2 mg Q4H PRN IVP pain scale 4-6 07/10/20 13:00 07/17/20 12:59 UNV Nitroglycerin (Ntg) 0.4 mg Q5M X 3 DOSES PRN SL Prn Chest Pain 07/09/20 21:15 08/08/20 21:14 Ondansetron HCl (Zofran) 4 mg Q1H PRN IVP Nausea & Vomiting 07/10/20 12:00 07/10/20 18:00 Ondansetron HCl (Zofran) 4 mg Q6H PRN IVP Nausea & Vomiting 07/09/20 21:15 08/08/20 21:14 Ondansetron HCl (Zofran) 4 mg Q6H PRN IVP Nausea & Vomiting 07/10/20 13:00 08/09/20 12:59 UNV Pantoprazole (Protonix) 40 mg DAILY IVP 07/10/20 09:00 08/09/20 08:59 07/10/20 08:56 Polyethylene Glycol (Miralax) 17 gm HSPRN PRN ORAL Constipation 07/09/20 21:15 08/08/20 21:14 Sennosides (Senokot) 8.6 mg BIDPRN PRN ORAL Constipation 07/10/20 13:00 08/09/20 12:59 UNV Temazepam (RestoriL) 7.5 mg DAILYPRN PRN ORAL Insomnia 07/10/20 13:00 07/17/20 12:59 UNV Temazepam (Restoril) 15 mg HSPRN PRN ORAL Insomnia 07/09/20 21:15 07/16/20 21:14 Zolpidem Tartrate (Ambien) 5 mg BEDTIME PRN ORAL Insomnia 07/09/20 21:15 07/16/20 21:14 07/09/20 22:58 Assessment/Plan Problem List: (1) Postoperative wound infection ICD Codes: T81.49XA - Infection following a procedure, other surgical site, initial encounter SNOMED: 14063222, 825127819 (2) Postoperative wound dehiscence ICD Codes: T81.31XA - Disruption of external operation (surgical) wound, not elsewhere classified, initial encounter SNOMED: 329368325, 918056053 Qualifiers: Qualified Codes: T81.31XA - Disruption of external operation (surgical) wound, not elsewhere classified, initial encounter (3) Seizure disorder ICD Codes: G40.909 - Epilepsy, unspecified, not intractable, without status epilepticus SNOMED: 413399161 (4) Hypertension ICD Codes: I10 - Essential (primary) hypertension SNOMED: 96786570 (5) History of hypertension ICD Codes: Z86.79 - Personal history of other diseases of the circulatory system SNOMED: 885586052 Assessment/Plan: cultures from the wound site. tolerated the laparotomy very well IV abx ID evaluation pain management symptomatic treatment check labs in am dvt prophylaxis. Cloe Zuleta MD Jul 10, 2020 15:16
[2020-07-10] MEDS ORDERED: Morphine Sulfate 2mg/ml Inj(IV/IM USE ONLY) IVP PRN (16:00)
[2020-07-10] MEDS ORDERED: Milk of Magnesia 30ml Ud ORAL PRN (16:00)
[2020-07-10] MEDS ORDERED: Sennosides 8.6mg tab ORAL PRN (16:00)
[2020-07-10] MEDS: HYDROcodone/Acetamin 5/325 tab ORAL PRN ×2 (16:06→21:24)
--- NOTE | 2020-07-10 17:07 | NUR ---
CASE MANAGEMENT: INITIAL REVIEW 74 YO F PRESENTED TO ED FROM HOME CC: POST OP WOUND INFECTION PMHx; abdominal surgery February 2020 Si:POST OP WOUND INFECTION VS: T 97.9 HR 80 RR 20 B/P 129/76 SATS 95% ON RA LABS: BUN 20 AST 14 IS: CT A/P IMPRESSION: 1. Surgical scar of the ventral abdomen with associated fat stranding, but no fluid collection or rim enhancement to suggest organized abscess formation. 2. Post surgical changes of the stomach. No free fluid or free air. 3. Nephrolithiasis without evidence of hydronephrosis. PATIENT ADMITTED TO MED/SURG 07/09/2020 @ 2101 DCP: HOME PLAN OF CARE: Pre-op Diagnosis: midline abdominal wound infection Procedure: 1. abd wall wound exploration 2. abd wall wound fistula excision 3. adjacent tissue transfer with skin flap for complex multilayer closure 4. drain placement Post-op Diagnosis: same as pre-op plus - with wound fistula
--- NOTE | 2020-07-10 18:15 | Operative Note - Dictated ---
DATE OF OPERATION: 07/10/2020 PREOPERATIVE DIAGNOSIS: Midline wound infection with continuous drainage, purulent chronic acutely worsening. POSTOPERATIVE DIAGNOSIS: Midline wound infection with continuous drainage, purulent chronic acutely worsening with wound fistula. OPERATION PERFORMED: 1. Abdominal wound exploration. 2. Abdominal wound fistula excision with tract in whole. 3. Adjacent tissue transfer with skin flap for complex multilayer closure area approximately 15 cm x 10 cm. 4. Drain placement and multilayer complex closure. ATTENDING SURGEON: Rafiq Rodriguez MD TREATING ENGINEER HELPER: None. ANESTHESIOLOGIST: John Ferraro MD ANESTHESIA: General PROJECT MANAGER PROCESS DEVELOPMENT. ESTIMATED BLOOD LOSS: 50 mL. IV FLUIDS: Please see anesthesia records. COMPLICATIONS: None. DRAINS: PURA . COUNTS: Sponge and needle count correct x2. SPECIMENS: Yes. INDICATIONS FOR PROCEDURE: This is a very pleasant 74-year-old female, well known to me from prior colovesicular fistula resection, colon resection who recovered well postoperatively, was discharged in stable condition, and was seen in the office postoperatively at which time was identified to have some drainage from the lower portion of her midline wound during her followup visit in the office. She had noted some drainage, but did not think much of it at that time. Nigel were removed from the lower portion. Some serosanguinous fluid was evacuated identifying likely a seroma, potential hematoma at the lower portion of the wound, but there was no active infection. Local wound care was initiated and home health was placed. Patient was subsequently seen the next week and unfortunately there have been some communication issues with the wound care plan and dressings not been changed often and more drainage was noted. Further portion of wound was open. Over the subsequent few weeks, there was some difficulty in identifying how to get patient do some wound care as it was a little difficult for her. Wound care was offered in the office setting when she was seen. Furthermore, she had a home health nurse and unfortunately over the subsequent weeks, the wound had deteriorated and remaining of the wound requiring opening with poor healing. Given her recent surgery, chronic illness, and overall condition, she is fairly malnourished and took some time to get the wound slowly start healing. Good progress was being made. The patient was seen on a weekly basis in the office for wound care with additional debridements as necessary with gauze and sometimes surgical instruments as necessary and the wound had significantly improved over the past few months. Approximately 1 week ago, some purulent drainage was identified in the low portion of the wound by the home health nurse and evaluation was done in the office, but no significant fluid collection identified at that times. Subsequent week, I kept in close contact with the wound care nurse to send the pictures and allowed me to identify that there was likely a fistula track somewhere given that there was purulent fluid coming to the lower portion of the wound and given this and the patient's condition and developing pain and acutely worsening, patient came to the emergency department at [facility] at which time was admitted and seen and recommended to go to the operating room urgently for evaluation and improvement. Given patient's history, chronic illness, and the history of the wound for a significant period of time, very slow poor healing, I discussed with them wound exploration and potential revision of the wound as necessary given the complexity of her case. Consent was obtained from the patient. Case was discussed with patient's primary care physician, urologist, and her family including her daughter. OPERATIVE NOTE: Patient was taken to the operating room and placed on the operating table in supine position with bilateral arms out. All bony prominences were well padded. SCDs placed. Preoperative time-out taken identifying the patient, procedure, operative staff, and surgical staff. General anesthesia induced and patient was intubated. The abdomen was clipped, prepped, and draped in standard surgical fashion. We began by making an inferior incision over the larger identifying and evaluating the inferior wound. In doing so, it was clearly identified in the left lower portion, there was a tunneling tract fistula being identified with some cavity. It seemed that there might have been a fistula tract to where prior suture knot from the fascial closure was and this area developed an abscess laterally and fistula connection towards it with no current active pus or evacuation of fluid being identified, but the tract did have a tissue tract, which was not conducive to healing or potentially would heal. The cavity looked to be approximately 3 cm x 3 cm, currently not filled with fluid, but definitely large and open and tracking down. Given this, decision was made to do an excision of the wound and given the location of the wound and the connection to other portions that were still open, it was required to do a complete excision or high risk for further fistula development or complication. The wound required revision at this point and excision of this area as well as some of the other scar tissue given the poor healing. A 15 cm x 10 cm was excised and fold down to subcutaneous tissue, scar tissue down to the fascia. As anticipated, the suture was identified in the left lower portion of the wound and the fistula tract and cavity was excised in whole. This was all sent to pathology for review. Once this was all completed, the remaining area was identified was the fascia, which was intact without complication. The subcutaneous tissue with fresh uninvolved noninflamed subcutaneous soft tissue from the superior to the inferior portion as well as a fresh skin tissue after complete excision of the scar and the wound and the open areas and the potentially infected areas. Once this was all completed in full, the wound bed was irrigated and suctioned clean. Hemostasis obtained with electrocautery. Unfortunately given the size and location in the lower abdomen, this required a complex closure as prior closure was not possible for significant tension and space inevitably would without doubt form infection or hematoma or seroma complication. This required coverage over the fascia and the remaining defect after the complete excision. At this time, decision made to do an adjacent tissue transfer with skin flap in the lateral aspects and a multilayer closure for complex closure with a drain in place. A drain was brought through the left lower quadrant and placed into the wound bed. Following this, the subcutaneous tissue was elevated from the fascia including the subcutaneous tissue, Tara's, and skin. Once this was elevated bilaterally on the right and the left side, superior and inferiorly, an area approximately 10 cm x 15 cm x 45 cm deep was brought together and closed using a tissue transfer flap. Once enough dissection was completed, this was tension-free without complication. Multiple interrupted 2-0 Vicryl sutures were used to reapproximate the Tara's, subcutaneous tissue, and bring 2 flaps together. Following this, a similar fashion of the dermal was provided and in the deeper around the level of the fascia to allow for some laxity, some 2-0 Prolenes were placed interruptedly to bring the tissues together and hold them down so they do not separate and allow for fluid filled cavities. The drain was left in place underneath and between the subcutaneous tissue flaps and the fascia. A drain was placed to bulb suction and the skin was reapproximated using multiple 3-0 Monocryl interrupted sutures. Dressings were applied. Patient tolerated the procedure well, was extubated, and taken to postanesthesia care unit in stable condition. Rafiq Rodriguez M.D. DR: CLIFFORD JOB#: [id number] CC:
[2020-07-10] MEDS: Topiramate 100mg tab ORAL SCH (18:33)
[2020-07-10] MEDS: Docusate 100mg cap ORAL SCH (18:33)
--- NOTE | 2020-07-10 20:00 | NUR ---
NURSE NOTES: Patient in bed, awake, alert and verbally responsive. Able to make simple needs known. Respiration is even and unlabored. Kept clean and comfortable. provided safe environment. Skin is warm and dry to touch. PURA drain on the left lower quadrant, draining, sanguinus in color. Iv site noted, refused to have iv fluid connected but ok for antibiotic to be given. Will educate patient, charge nurse made aware. Call light is at bedside. Will continue plan of care.
--- NOTE | 2020-07-10 20:00 | History and Physical Report ---
DATE OF ADMISSION: 07/09/2020 CHIEF COMPLAINT: Abdominal wall wound infection. HISTORY OF PRESENT ILLNESS: This is a 74-year-old female with past medical history significant for hypertension, hypothyroidism, history of seizure disorder, and history of colovesicular fistula, status post of resection with colon resection in February 2002, who presented to the emergency department as per request by Dr. Rafiq Rodriguez due to the abdominal wall infection. The patient was noted postop in the office to have an infected wound. After initial evaluation, the patient was subsequently advised to come to the hospital. Shortly after initial evaluation in the emergency department, the patient was admitted to the hospital with abdominal wall infection and subsequently was admitted for antibiotic therapy, possible debridement of the wound and wound care. PAST MEDICAL HISTORY/PAST SURGICAL HISTORY: As above, history of seizure disorder, hypertension, hypothyroidism, prior history urinary tract infection, and history of colovesicular fistula status post colonic as well as colovesicular resection in February 2002. MEDICATIONS AT HOME: Aspirin, clonazepam, Keppra, levothyroxine, nitrofurantoin, K-Dur, and Topamax. ALLERGIES: No known drug allergies. SOCIAL HISTORY: No smoking, alcohol, or drugs. FAMILY HISTORY: Noncontributory. REVIEW OF SYSTEMS: Mostly as above. Denies any dysuria, frequency, or hematuria. Denies any fall or head trauma. Denies any cough. History is very limited secondary to the patient's status. The patient is postoperatively at this time and not able to give appropriate history. PHYSICAL EXAMINATION: VITAL SIGNS: On admission from the emergency room, temperature 97.9, pulse of 80, respiratory rate 20, blood pressure 129/76. GENERAL: The patient is awake and responsive, lethargic and sleepy. HEAD AND NECK: Pupils are equal and reactive to light. Extraocular movements are intact. Neck was supple. No JVD. LUNGS: Good air entry with no wheezing or rales. HEART: S1, S2. Regular rhythm. No murmur or gallops. ABDOMEN: Soft. Midline surgical wound was noted with intact dressing and a drainage tube. No rebound tenderness. No fluid shift. EXTREMITIES: No cyanosis, clubbing, or edema. NEUROLOGIC: Cranial nerves II through XII grossly intact. The patient is moving all the extremities. RECTAL/GENITOURINARY: Refused and deferred. PSYCHIATRIC: Mood and affect, unable to obtain. LABORATORY DATA: On admission, WBC of 5.6, hemoglobin 14, hematocrit 45, platelets 190,000. Sodium 142, potassium 3.7, chloride 106, bicarb 29, BUN 20, creatinine 1.0. GFR is 54. AST of 14, ALT of 16, alkaline phosphatase of 101. CRP is less than 0.4. Lipase is 195. PT of 10, INR 1.0, PTT of 27. COVID-19 test is negative. The patient had a CT of the abdomen and pelvis. Surgical scar of the ventral abdomen with associated fat stranding, but no fluid collection or rim enhancement to suggest organizing abscess formation. Postsurgical changes of the stomach. No free fluid or free air. Nephrolithiasis without evidence of hydronephrosis ASSESSMENT: 1. Abdominal wall wound infection with wound dehiscence. 2. Hypertension. 3. Seizure disorder. 4. Hypothyroidism. 5. History of colovesicular fistula, status post resection. PLAN: 1. Admit the patient to surgical unit. 2. We will follow up with Dr. Jennifer quintana who has already taken the patient for surgery with abdominal wound exploration and wound excision and transfer with skin flap, complex multilayer. 3. We will follow up with the cultures and laboratory in the morning. 4. Code status is Full Code. 5. DVT prophylaxis is SCD. 6. Start the patient on broad spectrum antibiotic with Ancef. Cricket Johnson M.D. DR: [place] JOB#: [id number] CC:
--- NOTE | 2020-07-10 20:18 | NUR ---
NURSE HAND-OFF: Important Events on Shift:Pt had abdominal wound debridement and washout. Patient Status: Stable Diet: Regular Pending Orders: None Pending Results/Labs:None Pending MD notification: None Latest Vital Signs: Temperature 98.1 , Pulse 59 , B/P 130 /70 , Respiratory Rate 16 , O2 SAT 98 , Room Air, O2 Flow Rate 6 Vital Sign Comment: Stable Latest Bond Fall Score: 35 Fall Risk: Medium Risk Safety Measures: Call light Within Reach, Bed Alarm , Side Rails Side Rails x2, Bed position Low and Locked. Fall Precautions: Report given to YULI Figueroa.
--- NOTE | 2020-07-10 22:30 | NUR ---
NURSE NOTES: patient complained of pain, given PRN pain medication. call light is at bedside. Will reassess.
[2020-07-10] MEDS: Zolpidem 5mg tab ORAL PRN (23:16)
[2020-07-11 04:00] VITALS: BP 114/64
[2020-07-11 06:30] LABS: BASOPHILS % (AUTO) 0.7 % (0.0-2.0); HEMOGLOBIN 14.3 G/DL (12.0-16.0); LYMPHOCYTES % (AUTO) 31.3 % (20.0-45.0); MEAN CORPUSCULAR VOLUME 93 FL (80-99); MONOCYTES % (AUTO) 7.4 % (1.0-10.0); NEUTROPHILS % (AUTO) 58.7 % (45.0-75.0); PLATELET COUNT 156 K/UL (150-450); RED BLOOD COUNT 4.94 M/UL (4.20-5.40); WHITE BLOOD COUNT 5.5 K/UL (4.8-10.8)
[2020-07-11 06:55] LABS: ANION GAP 7 mmol/L (5-15); BLOOD UREA NITROGEN 11 mg/dL (7-18); CALCIUM 8.3 MG/DL (8.5-10.1); CARBON DIOXIDE 25 MMOL/L (21-32); CHLORIDE 108 MMOL/L (98-107); CREATININE 0.7 MG/DL (0.55-1.30); POTASSIUM 3.9 MMOL/L (3.5-5.1); SODIUM 140 MMOL/L (136-145)
--- NOTE | 2020-07-11 06:56 | NUR ---
NURSE NOTES: Patient is awake, alert x 4 refusing to be connected to IV fluid. Will reassess. Call light is at bedside. Will continue plan of care.
--- NOTE | 2020-07-11 07:07 | NUR ---
NURSE HAND-OFF: Important Events on Shift:WNL Patient Status: Diet: Pending Orders: Pending Results/Labs: Pending MD notification: Latest Vital Signs: Temperature 97.6 , Pulse 62 , B/P 114 /64 , Respiratory Rate 16 , O2 SAT 99 , Room Air, O2 Flow Rate 6 . Vital Sign Comment: Latest Bond Fall Score: 35 Fall Risk: Medium Risk Safety Measures: Call light Within Reach, Bed Alarm , Side Rails Side Rails x2, Bed position Low and Locked. Fall Precautions: Report given to YULI Sommers.
--- NOTE | 2020-07-11 07:45 | NUR ---
NURSE NOTES: Received report from YULI Figueroa. Patient in bed, awake, alert and verbally responsive, Swedish speaking. Respiration is even and unlabored. No c/o pain at this time. PURA drain on the left lower quadrant, draining, sanguinus in color. Iv site noted, refused to have iv fluid connected. Will educate patient, charge nurse made aware. Call light within reach. Will continue to monitor.
[2020-07-11 08:00] VITALS: BP 127/60
[2020-07-11] MEDS: Heparin 5000 units/ml inj SUBQ SCH (08:43)
[2020-07-11] MEDS: ceFAZolin 1gm in D5W 55ml IVPB SCH (08:45)
[2020-07-11] MEDS: Docusate 100mg cap ORAL SCH (08:45)
[2020-07-11] MEDS: Topiramate 100mg tab ORAL SCH (08:45)
[2020-07-11] MEDS: Pantoprazole Inj IVP SCH (08:45)
[2020-07-11] MEDS: HYDROcodone/Acetamin 5/325 tab ORAL PRN (11:55)
[2020-07-11 12:00] VITALS: BP 124/65
[2020-07-11] MEDS ORDERED: COLACE100 MG ORAL (13:05)
[2020-07-11] MEDS ORDERED: HYDROCODON-ACE1 EA15 ORAL (13:05)
--- NOTE | 2020-07-11 13:11 | Infectious Diseases Prog Note ---
Subjective Allergies: Coded Allergies: No Known Allergies (Unverified , 03/10/20) # [id number] Objective Last 24 Hour Vital Signs Date Time Temp Pulse Resp B/P (MAP) Pulse Ox O2 Delivery O2 Flow Rate FiO2 07/11/20 12:25 98.2 07/11/20 12:00 97.6 70 16 124/65 (84) 97 07/11/20 09:00 Room Air 07/11/20 08:00 98.2 68 16 127/60 (82) 97 07/11/20 04:00 97.6 62 16 114/64 (81) 99 07/10/20 23:20 97.7 63 16 129/74 (92) 98 07/10/20 21:35 Room Air 07/10/20 20:00 97.7 66 16 126/71 (89) 97 07/10/20 15:30 98.1 59 16 130/70 (90) 98 07/10/20 15:00 97.7 61 16 131/71 (91) 97 07/10/20 14:30 97.7 61 16 134/73 (93) 93 07/10/20 14:30 Room Air 07/10/20 14:15 97.3 60 17 139/72 100 Room Air 07/10/20 14:08 97.3 07/10/20 14:00 58 15 141/73 100 Room Air 07/10/20 13:45 58 18 152/76 100 Simple Mask 6 07/10/20 13:39 62 18 99 07/10/20 13:30 57 19 160/74 100 Simple Mask 6 07/10/20 13:20 62 16 144/81 100 Simple Mask 6 Height (Feet): 5 Height (Inches): 5.00 Weight (Pounds): 170 Microbiology Date/Time Source Procedure Growth Status 07/09/20 19:25 Nasopharynx SARS-CoV-2 RdRp Gene Assay - Final Complete 07/09/20 19:20 Abdomen Gram Stain - Final Resulted 07/09/20 19:20 Wound Culture - Preliminary Staphylococcus Aureus Resulted Laboratory Tests Test 07/11/20 04:45 White Blood Count 5.5 K/UL (4.8-10.8) Red Blood Count 4.94 M/UL (4.20-5.40) Hemoglobin 14.3 G/DL (12.0-16.0) Hematocrit 46.0 % (37.0-47.0) Mean Corpuscular Volume 93 FL (80-99) Mean Corpuscular Hemoglobin 28.9 PG (27.0-31.0) Mean Corpuscular Hemoglobin Concent 31.1 G/DL (32.0-36.0) L Red Cell Distribution Width 15.0 % (11.6-14.8) H Platelet Count 156 K/UL (150-450) Mean Platelet Volume 8.9 FL (6.5-10.1) Neutrophils (%) (Auto) 58.7 % (45.0-75.0) Lymphocytes (%) (Auto) 31.3 % (20.0-45.0) Monocytes (%) (Auto) 7.4 % (1.0-10.0) Eosinophils (%) (Auto) 2.0 % (0.0-3.0) Basophils (%) (Auto) 0.7 % (0.0-2.0) Sodium Level 140 MMOL/L (136-145) Potassium Level 3.9 MMOL/L (3.5-5.1) Chloride Level 108 MMOL/L (98-107) H Carbon Dioxide Level 25 MMOL/L (21-32) Anion Gap 7 mmol/L (5-15) Blood Urea Nitrogen 11 mg/dL (7-18) Creatinine 0.7 MG/DL (0.55-1.30) Estimat Glomerular Filtration Rate > 60 mL/min (>60) Glucose Level 79 MG/DL (74-106) Calcium Level 8.3 MG/DL (8.5-10.1) L Current Medications Medications (Trade) Dose Ordered Sig/Dorian Route PRN Reason Start Time Stop Time Status Last Admin Dose Admin Acetaminophen (Tylenol) 650 mg Q4H PRN ORAL fever 07/09/20 21:15 08/08/20 21:14 Acetaminophen (Tylenol) 650 mg Q6H PRN ORAL Mild Pain (Pain Scale 1-3) 07/10/20 16:00 08/09/20 15:59 Acetaminophen/ Hydrocodone Bitart ([place] 5/325) 1 tab Q4H PRN ORAL Moderate Pain (Pain Scale 4-6) 07/10/20 16:00 07/17/20 15:59 07/11/20 11:55 Cefazolin Sodium 1 gm/Dextrose 55 ml @ 110 mls/hr Q8H IVPB 07/10/20 08:00 07/17/20 07:59 07/11/20 08:45 Clonazepam (KlonoPIN) 0.5 mg Q6H PRN ORAL anxiety 07/09/20 21:25 07/16/20 21:24 07/09/20 22:14 Dextrose (Dextrose 50%) 25 ml Q30M PRN IV Hypoglycemia 07/09/20 21:15 10/07/20 21:14 Dextrose (Dextrose 50%) 50 ml Q30M PRN IV Hypoglycemia 07/09/20 21:15 10/07/20 21:14 Dextrose/Sodium Chloride 1,000 ml @ 75 mls/hr [id number] IV 07/09/20 21:16 08/08/20 21:15 07/10/20 08:56 Diphenhydramine HCl (Benadryl) 25 mg Q6H PRN ORAL Itching/Pruritis 07/09/20 21:15 08/08/20 21:14 Diphenhydramine HCl (Benadryl) 25 mg Q8H PRN ORAL Itching/Pruritis 07/10/20 16:00 08/09/20 15:59 Docusate Sodium (Colace) 100 mg TWICE A DAY ORAL 07/10/20 18:00 08/09/20 17:59 07/11/20 08:45 Heparin Sodium (Porcine) (Heparin 5000 units/ml) 5,000 units EVERY 12 HOURS SUBQ 07/10/20 09:00 08/24/20 08:59 07/11/20 08:43 Iohexol (OMNIPAQUE-300 100ml) 100 ml NOW PRN INJ Radiology Procedure 07/09/20 19:15 07/11/20 19:14 Levetiracetam (Keppra) 1,000 mg Q12HR ORAL 07/10/20 09:00 08/09/20 08:59 07/11/20 08:45 Levothyroxine Sodium (Synthroid) 100 mcg Q24H ORAL 07/10/20 06:30 08/09/20 06:29 07/11/20 05:42 Magnesium Hydroxide (Mom) 30 ml BIDPRN PRN ORAL Constipation 07/10/20 16:00 08/09/20 15:59 Morphine Sulfate (Morphine Sulfate) 2 mg Q4H PRN IVP pain scale 4-6 07/10/20 16:00 07/17/20 15:59 Nitroglycerin (Ntg) 0.4 mg Q5M X 3 DOSES PRN SL Prn Chest Pain 07/09/20 21:15 08/08/20 21:14 Ondansetron HCl (Zofran) 4 mg Q6H PRN IVP Nausea & Vomiting 07/09/20 21:15 08/08/20 21:14 Ondansetron HCl (Zofran) 4 mg Q6H PRN IVP Nausea & Vomiting 07/10/20 16:00 08/09/20 15:59 Pantoprazole (Protonix) 40 mg DAILY IVP 07/10/20 09:00 08/09/20 08:59 07/11/20 08:45 Polyethylene Glycol (Miralax) 17 gm HSPRN PRN ORAL Constipation 07/09/20 21:15 08/08/20 21:14 Sennosides (Senokot) 8.6 mg BIDPRN PRN ORAL Constipation 07/10/20 16:00 08/09/20 15:59 Temazepam (RestoriL) 7.5 mg DAILYPRN PRN ORAL Insomnia 07/10/20 16:00 07/17/20 15:59 Temazepam (Restoril) 15 mg HSPRN PRN ORAL Insomnia 07/09/20 21:15 07/16/20 21:14 Topiramate (Topamax) 100 mg TWICE A DAY ORAL 07/10/20 18:00 08/09/20 17:59 07/11/20 08:45 Zolpidem Tartrate (Ambien) 5 mg BEDTIME PRN ORAL Insomnia 07/09/20 21:15 07/16/20 21:14 07/10/20 23:16 Grant Adams MD Jul 11, 2020 13:11
[2020-07-11] MEDS ORDERED: Vancomycin 1 GM in D5W 275 ML IVPB SCH (13:15)
[2020-07-11] MEDS: D5 1/2NS 1,000 ML IV SCH (13:16)
--- NOTE | 2020-07-11 14:48 | Surgery Progress Note ---
Surgery Progress Note Subjective Procedure Performed 1. abd wall wound exploration 2. abd wall wound fistula excision 3. adjacent tissue transfer with skin flap for complex multilayer closure 4. drain placement Additional Comments afebrile, HD stable, labs okay dressings clean drain min output doing well d/c home drain care with home health wound completely excised and no residual. no abx okay will follow up on mon in office for drain eval discussed with patient and family Objective Last 24 Hour Vital Signs Date Time Temp Pulse Resp B/P (MAP) Pulse Ox O2 Delivery O2 Flow Rate FiO2 07/11/20 12:25 98.2 07/11/20 12:00 97.6 70 16 124/65 (84) 97 07/11/20 09:00 Room Air 07/11/20 08:00 98.2 68 16 127/60 (82) 97 07/11/20 04:00 97.6 62 16 114/64 (81) 99 07/10/20 23:20 97.7 63 16 129/74 (92) 98 07/10/20 21:35 Room Air 07/10/20 20:00 97.7 66 16 126/71 (89) 97 07/10/20 15:30 98.1 59 16 130/70 (90) 98 07/10/20 15:00 97.7 61 16 131/71 (91) 97 I&O Intake and Output 07/10/20 07/11/20 19:00 07:00 Intake Total 1300 ml 780 ml Output Total 90 ml 40 ml Balance 1210 ml 740 ml Intake Oral 400 ml 725 ml IV Total 900 ml 55 ml Output Drainage Total 40 ml 40 ml Estimated Blood Loss 50 ml # Voids 2 3 Dressing: dry Wound: clean Drains: paco Cardiovascular: RSR Respiratory: clear Abdomen: soft, flat, non-tender, present bowel sounds Extremities: no edema, no tenderness, no cyanosis Laboratory Tests Test 07/11/20 04:45 White Blood Count 5.5 K/UL (4.8-10.8) Red Blood Count 4.94 M/UL (4.20-5.40) Hemoglobin 14.3 G/DL (12.0-16.0) Hematocrit 46.0 % (37.0-47.0) Mean Corpuscular Volume 93 FL (80-99) Mean Corpuscular Hemoglobin 28.9 PG (27.0-31.0) Mean Corpuscular Hemoglobin Concent 31.1 G/DL (32.0-36.0) L Red Cell Distribution Width 15.0 % (11.6-14.8) H Platelet Count 156 K/UL (150-450) Mean Platelet Volume 8.9 FL (6.5-10.1) Neutrophils (%) (Auto) 58.7 % (45.0-75.0) Lymphocytes (%) (Auto) 31.3 % (20.0-45.0) Monocytes (%) (Auto) 7.4 % (1.0-10.0) Eosinophils (%) (Auto) 2.0 % (0.0-3.0) Basophils (%) (Auto) 0.7 % (0.0-2.0) Sodium Level 140 MMOL/L (136-145) Potassium Level 3.9 MMOL/L (3.5-5.1) Chloride Level 108 MMOL/L (98-107) H Carbon Dioxide Level 25 MMOL/L (21-32) Anion Gap 7 mmol/L (5-15) Blood Urea Nitrogen 11 mg/dL (7-18) Creatinine 0.7 MG/DL (0.55-1.30) Estimat Glomerular Filtration Rate > 60 mL/min (>60) Glucose Level 79 MG/DL (74-106) Calcium Level 8.3 MG/DL (8.5-10.1) L Plan Problems: (1) Postoperative wound dehiscence Assessment & Plan: please refer to operative note for details to OR npo iv fluids frank bx labs consent (2) Postoperative wound cellulitis (3) Postoperative wound infection (4) Colonic fistula Rafiq Rodriguez Jul 11, 2020 14:48
--- NOTE | 2020-07-11 15:45 | NUR ---
NURSE NOTES: Pt in stable condition. Provided discharge instructions, Rx and follow-up. Per Dr. Rodriguez, pt will discharge home with PURA and no ATBs. Daughter was present, Pt verbalized understanding. All belongings were accounted for. IV and ID band removed. Pt was escorted to down stairs by nurse.
[2020-07-11] MEDS ORDERED: D5 1/2NS 1000ml IV ONE (15:49)
[2020-07-11] MEDS ORDERED: Tubing IV Secondary IV ONE (15:49)
--- NOTE | 2020-07-11 15:49 | NUR ---
PT Note PT eval completed, treatment initiated. Patient is independent in mobility and gait without any AD. No further PT needed at this time. Addendum: 07/11/20 at 1549 by AARON GUTHRIE PT Amended: Links added.
--- NOTE | 2020-07-11 16:56 | Internal Med Progress Note ---
Subjective Date of Service: Jul 11, 2020 Physician Name Bebeto Eric Attending Physician Cricket Johnson MD Current Medications Medications (Trade) Dose Ordered Sig/Dorian Route PRN Reason Start Time Stop Time Status Last Admin Dose Admin Acetaminophen (Tylenol) 650 mg Q4H PRN ORAL fever 07/09/20 21:15 08/08/20 21:14 Acetaminophen (Tylenol) 650 mg Q6H PRN ORAL Mild Pain (Pain Scale 1-3) 07/10/20 16:00 08/09/20 15:59 Acetaminophen/ Hydrocodone Bitart ([place] 5/325) 1 tab Q4H PRN ORAL Moderate Pain (Pain Scale 4-6) 07/10/20 16:00 07/17/20 15:59 07/11/20 11:55 Clonazepam (KlonoPIN) 0.5 mg Q6H PRN ORAL anxiety 07/09/20 21:25 07/16/20 21:24 07/09/20 22:14 Dextrose (Dextrose 50%) 25 ml Q30M PRN IV Hypoglycemia 07/09/20 21:15 10/07/20 21:14 Dextrose (Dextrose 50%) 50 ml Q30M PRN IV Hypoglycemia 07/09/20 21:15 10/07/20 21:14 Dextrose/Sodium Chloride 1,000 ml @ 75 mls/hr [id number] IV 07/09/20 21:16 08/08/20 21:15 07/10/20 08:56 Diphenhydramine HCl (Benadryl) 25 mg Q8H PRN ORAL Itching/Pruritis 07/10/20 16:00 08/09/20 15:59 Docusate Sodium (Colace) 100 mg TWICE A DAY ORAL 07/10/20 18:00 08/09/20 17:59 07/11/20 08:45 Heparin Sodium (Porcine) (Heparin 5000 units/ml) 5,000 units EVERY 12 HOURS SUBQ 07/10/20 09:00 08/24/20 08:59 07/11/20 08:43 Iohexol (OMNIPAQUE-300 100ml) 100 ml NOW PRN INJ Radiology Procedure 07/09/20 19:15 07/11/20 19:14 Levetiracetam (Keppra) 1,000 mg Q12HR ORAL 07/10/20 09:00 08/09/20 08:59 07/11/20 08:45 Levothyroxine Sodium (Synthroid) 100 mcg Q24H ORAL 07/10/20 06:30 08/09/20 06:29 07/11/20 05:42 Magnesium Hydroxide (Mom) 30 ml BIDPRN PRN ORAL Constipation 07/10/20 16:00 08/09/20 15:59 Morphine Sulfate (Morphine Sulfate) 2 mg Q4H PRN IVP pain scale 4-6 07/10/20 16:00 07/17/20 15:59 Nitroglycerin (Ntg) 0.4 mg Q5M X 3 DOSES PRN SL Prn Chest Pain 07/09/20 21:15 08/08/20 21:14 Ondansetron HCl (Zofran) 4 mg Q6H PRN IVP Nausea & Vomiting 07/10/20 16:00 08/09/20 15:59 Pantoprazole (Protonix) 40 mg DAILY IVP 07/10/20 09:00 08/09/20 08:59 07/11/20 08:45 Polyethylene Glycol (Miralax) 17 gm HSPRN PRN ORAL Constipation 07/09/20 21:15 08/08/20 21:14 Sennosides (Senokot) 8.6 mg BIDPRN PRN ORAL Constipation 07/10/20 16:00 08/09/20 15:59 Temazepam (RestoriL) 7.5 mg HSPRN PRN ORAL Insomnia 07/11/20 13:45 07/17/20 15:59 Topiramate (Topamax) 100 mg TWICE A DAY ORAL 07/10/20 18:00 08/09/20 17:59 07/11/20 08:45 Vancomycin HCl ([facility] pharmacy to dose) 1 ea DAILY PRN MISC PER RX PROTOCOL 07/11/20 13:30 08/10/20 13:29 Vancomycin HCl 1.5 gm/Sodium Chloride 275 ml @ 137.5 mls/ hr ONCE ONCE IVPB 07/11/20 15:00 07/11/20 16:59 Vancomycin HCl 750 mg/Sodium Chloride 275 ml @ 183.333 mls/hr Q12HR@0300,1500 IVPB 07/12/20 03:00 07/17/20 02:59 Zolpidem Tartrate (Ambien) 5 mg BEDTIME PRN ORAL Insomnia 07/09/20 21:15 07/16/20 21:14 07/10/20 23:16 Allergies: Coded Allergies: No Known Allergies (Unverified , 03/10/20) Subjective 74 YO F admitted with abdominal wound infection. Cover for Int Med-Dr Johnson. S/P wound eploration and fistula extraction 07/10/20 Objective Last Vital Signs Date Time Temp Pulse Resp B/P (MAP) Pulse Ox O2 Delivery O2 Flow Rate FiO2 07/11/20 12:25 98.2 07/11/20 12:00 70 16 124/65 (84) 97 07/11/20 09:00 Room Air 07/10/20 13:45 6 Laboratory Tests Test 07/11/20 04:45 White Blood Count 5.5 K/UL (4.8-10.8) Red Blood Count 4.94 M/UL (4.20-5.40) Hemoglobin 14.3 G/DL (12.0-16.0) Hematocrit 46.0 % (37.0-47.0) Mean Corpuscular Volume 93 FL (80-99) Mean Corpuscular Hemoglobin 28.9 PG (27.0-31.0) Mean Corpuscular Hemoglobin Concent 31.1 G/DL (32.0-36.0) L Red Cell Distribution Width 15.0 % (11.6-14.8) H Platelet Count 156 K/UL (150-450) Mean Platelet Volume 8.9 FL (6.5-10.1) Neutrophils (%) (Auto) 58.7 % (45.0-75.0) Lymphocytes (%) (Auto) 31.3 % (20.0-45.0) Monocytes (%) (Auto) 7.4 % (1.0-10.0) Eosinophils (%) (Auto) 2.0 % (0.0-3.0) Basophils (%) (Auto) 0.7 % (0.0-2.0) Sodium Level 140 MMOL/L (136-145) Potassium Level 3.9 MMOL/L (3.5-5.1) Chloride Level 108 MMOL/L (98-107) H Carbon Dioxide Level 25 MMOL/L (21-32) Anion Gap 7 mmol/L (5-15) Blood Urea Nitrogen 11 mg/dL (7-18) Creatinine 0.7 MG/DL (0.55-1.30) Estimat Glomerular Filtration Rate > 60 mL/min (>60) Glucose Level 79 MG/DL (74-106) Calcium Level 8.3 MG/DL (8.5-10.1) L Microbiology Date/Time Source Procedure Growth Status 07/09/20 19:25 Nasopharynx SARS-CoV-2 RdRp Gene Assay - Final Complete 07/09/20 19:20 Abdomen Gram Stain - Final Resulted 07/09/20 19:20 Wound Culture - Preliminary Staphylococcus Aureus Resulted Intake and Output 07/10/20 07/11/20 19:00 07:00 Intake Total 1300 ml 780 ml Output Total 90 ml 40 ml Balance 1210 ml 740 ml Intake Oral 400 ml 725 ml IV Total 900 ml 55 ml Output Drainage Total 40 ml 40 ml Estimated Blood Loss 50 ml # Voids 2 3 Objective PHYSICAL EXAMINATION: VITAL SIGNS: On admission from the emergency room, temperature 97.9, pulse of 80, respiratory rate 20, blood pressure 129/76. GENERAL: The patient is awake and responsive, lethargic and sleepy. HEAD AND NECK: Pupils are equal and reactive to light. Extraocular movements are intact. Neck was supple. No JVD. LUNGS: Good air entry with no wheezing or rales. HEART: S1, S2. Regular rhythm. No murmur or gallops. ABDOMEN: Soft. Midline surgical wound was noted with intact dressing and a drainage tube. No rebound tenderness. No fluid shift. EXTREMITIES: No cyanosis, clubbing, or edema. NEUROLOGIC: Cranial nerves II through XII grossly intact. The patient is moving all the extremities. RECTAL/GENITOURINARY: Refused and deferred. PSYCHIATRIC: Mood and affect, unable to obtain. Assessment/Plan Assessment/Plan ASSESSMENT: 1. Abdominal wall wound infection with wound dehiscence. 2. Hypertension. 3. Seizure disorder. 4. Hypothyroidism. 5. History of colovesicular fistula, status post resection. PLAN: 1. Admit the patient to surgical unit. 2. Dr. Rodriguez =Surgery; S/P abdominal wound exploration and wound excision and transfer with skin flap, complex multilayer on 07/10/20. 3. We will follow up with the cultures and laboratory in the morning. 4. Code status is Full Code. 5. DVT prophylaxis is SCD. 6. antibiotic = vancomycin; ID=Bebeto Nolan MD Jul 11, 2020 16:56
--- NOTE | 2020-07-11 17:52 | Pulmonology Progress Note ---
Subjective ROS Limited/Unobtainable: No Allergies: Coded Allergies: No Known Allergies (Unverified , 03/10/20) Objective Last 24 Hour Vital Signs Date Time Temp Pulse Resp B/P (MAP) Pulse Ox O2 Delivery O2 Flow Rate FiO2 07/11/20 12:25 98.2 07/11/20 12:00 97.6 70 16 124/65 (84) 97 07/11/20 09:00 Room Air 07/11/20 08:00 98.2 68 16 127/60 (82) 97 07/11/20 04:00 97.6 62 16 114/64 (81) 99 07/10/20 23:20 97.7 63 16 129/74 (92) 98 07/10/20 21:35 Room Air 07/10/20 20:00 97.7 66 16 126/71 (89) 97 Intake and Output 07/10/20 07/11/20 19:00 07:00 Intake Total 1300 ml 780 ml Output Total 90 ml 40 ml Balance 1210 ml 740 ml Intake Oral 400 ml 725 ml IV Total 900 ml 55 ml Output Drainage Total 40 ml 40 ml Estimated Blood Loss 50 ml # Voids 2 3 General Appearance: WD/WN, no acute distress HEENT: normocephalic Respiratory: chest wall non-tender, lungs clear Breasts: no masses Cardiovascular: normal peripheral pulses Abdomen: normal bowel sounds, soft, non tender Genitourinary: normal external genitalia Extremities: no clubbing Microbiology Date/Time Source Procedure Growth Status 07/09/20 19:25 Nasopharynx SARS-CoV-2 RdRp Gene Assay - Final Complete 07/09/20 19:20 Abdomen Gram Stain - Final Resulted 07/09/20 19:20 Wound Culture - Preliminary Staphylococcus Aureus Resulted Laboratory Tests 07/11/20 04:45: White Blood Count 5.5, Red Blood Count 4.94, Hemoglobin 14.3, Hematocrit 46.0, Mean Corpuscular Volume 93, Mean Corpuscular Hemoglobin 28.9, Mean Corpuscular Hemoglobin Concent 31.1L, Red Cell Distribution Width 15.0H, Platelet Count 156, Mean Platelet Volume 8.9, Neutrophils (%) (Auto) 58.7, Lymphocytes (%) (Auto) 31.3, Monocytes (%) (Auto) 7.4, Eosinophils (%) (Auto) 2.0, Basophils (%) (Auto) 0.7, Sodium Level 140, Potassium Level 3.9, Chloride Level 108H, Carbon Dioxide Level 25, Anion Gap 7, Blood Urea Nitrogen 11, Creatinine 0.7, Estimat Glomerular Filtration Rate > 60, Glucose Level 79, Calcium Level 8.3L Assessment/Plan Problems: (1) Postoperative wound dehiscence (2) Seizure disorder (3) Hypertension (4) History of hypertension Assessment/Plan doing better tolerated the laparotomy very well pain management symptomatic treatment dvt prophylaxis. dc home since pt is cleared by surgery. Cleo Zuleta MD Jul 11, 2020 17:52
--- NOTE | 2020-07-11 18:15 | Consultation ---
DATE OF CONSULTATION: 07/11/2020 INFECTIOUS DISEASE CONSULT REFERRING PHYSICIAN: Cricket Johnson M.D. and Cleo Zuleta M.D. REASON FOR CONSULTATION: Evaluation of patient for antibiotics for possible wound infection. HISTORY OF PRESENT ILLNESS: The patient is a 74-year-old female with multiple medical problems as listed below, who has recently undergone colon resection. Postoperatively, the patient developed wound infection that was drained mostly as an outpatient. However, the patient has been admitted due to serosanguineous fluid drainage from the abdominal wound. The patient underwent surgery. It was felt the drainage was due to the stitch in the area. As I spoke to the surgeon, per Surgery, there was no evidence of pus. The patient has mostly serosanguineous fluid drainage and he does not feel the patient would require antibiotics post discharge. PAST MEDICAL HISTORY: 1. Seizure disorder. 2. Hypertension. 3. History of UTI. 4. History of colovesical fistula, status post colon resection. FAMILY HISTORY: Not contributing. ALLERGIES: No known drug allergies. SOCIAL HISTORY: Negative for alcohol, drug abuse, or smoking. REVIEW OF SYSTEMS: A 10-point review was done. MEDICATIONS: IV Ancef. PHYSICAL EXAMINATION: VITAL SIGNS: Afebrile. Blood pressure 127/78, respirations 8, pulse 86. HEENT: No pale conjunctivae. No icterus. NECK: No lymphadenopathy. CHEST: Bilateral air expansion. ABDOMEN: Incision is covered by dressing. PURA drainage present. EXTREMITIES: No cyanosis at this time. NEUROLOGIC: Awake and alert. LABORATORY AND DIAGNOSTIC DATA: White blood cells 5, hemoglobin 14, platelets 156. BUN 11 creatinine 0.7. ALT, AST, and alkaline phosphatase unremarkable. Wound culture is growing Staphylococcus aureus. CT of the abdomen shows surgical scar of ventricular abdominal wall hernia. No free fluid or free air, nephrolithiasis, no evidence of hydronephrosis. ASSESSMENT: The patient is a 74-year-old female with abdominal wound drainage due to the stitch at the time of surgery, there was no obvious infection. However, culture is growing Staphylococcus aureus. The patient may have a low-grade infection. PLAN: 1. We will change antibiotics to vancomycin. 2. . 3. BMP. 4. Monitor final culture. 5. Based on the final culture, we may change antibiotics to oral antibiotics for a short course of 3 to 5 days. Thank you for this consultation. We will follow the patient with you during this hospitalization. Grant Adams M.D. DR: JONG JOB#: [id number] CC:
[2020-07-12] MEDS ORDERED: Vancomycin 750mg/NS 275ml IVPB SCH ×2 (03:00)
--- NOTE | 2020-07-12 16:16 | Cardiology Report ---
APPROVED REPORT EKG Measurement Heart [id number] OR [id number] [id number] <Conclusion> Sinus rhythm with 1st degree AV block Cannot rule out Anterior infarct, age undetermined Abnormal ECG
--- NOTE | 2020-07-13 10:21 | Discharge Summary ---
Discharge Summary Discharge Summary _ DATE OF ADMISSION: 07/09/2020 DATE OF DISCHARGE: 07/11/2020 DISCHARGED BY: Dr. Johnson REASON FOR ADMISSION: 74 years old female with past medical history significant for hypertension, seizure disorder, hypothyroidism, colovesicular fistula , status post resection with colon resection in February 2002 , presented to emergency department per request of surgeon due to abdominal wall infection. During the office visit patient noted to have infected wound. After initial evaluation in the office , patient was advised to come to the hospital for further management. In emergency department laboratory work-up revealed no leukocytosis,, stable hemoglobin hematocrit and platelet count. Stable electrolytes and renal parameters. CRP less than 0.4, ESR 15. Rapid COVID-[address] of the abdomen and pelvis revealed surgical scar of the ventral abdominal with associated fat stranding, but no fluid collection or rim enhancement to suggest organized abscess formation. Postsurgical changes of the stomach. No free fluid or free air. Nephrolithiasis without evidence of hydronephrosis. Physical exam revealed open wound dehisced with some drainage. In the emergency department patient pancultured and admitted for further management. CONSULTANTS: pulmonary Dr. Zuleta ID specialist Dr. Adams surgery Dr. Rodriguez [facility] COURSE: Patient admitted to medical surgical floor. Patient started on the IV fluids and empiric antibiotics. Surgery consult was requested. Surgeon seen and evaluated patient. Patient subsequently undergone on 07/10 abdominal wound exploration with fistula excision with tract in whole, adjacent tissue transfer with a skin flap for complex multilayer , and drain placement. Patient tolerated procedure well. Pain management was addressed. Wound culture revealed growth of Staph aureus. Per ID specialist infection was minimal. Drain had minimal output. Dressings remained clean. Patient remained hemodynamically stable and afebrile. Per surgeon , wound was completely excised without residual. No need for further antibiotics. Patient to follow-up in the office on for drain removal on July 15 . Seizure precaution maintained. Topamax continued. No evidence of seizure activity while in the hospital. Supportive care provided levothyroxine continued. DVT and GI prophylaxis provided. Bowel regimen instituted Patient clinically stabilized and was ready for discharge home with home health services. FINAL DIAGNOSES: Abdominal wall wound infection with wound dehiscence s/p 1.Abdominal wound exploration. 2. Abdominal wound fistula excision with tract in whole. 3. Adjacent tissue transfer with skin flap for complex multilayer closure area approximately 15 cm x 10 cm. 4. Drain placement and multilayer complex closure Hypertension Seizure disorder Hypothyroidism History of colovesicular fistula, status post resection DISCHARGE MEDICATIONS: See Medication Reconciliation list. DISCHARGE INSTRUCTIONS: Patient was discharged home with home health services. Follow up with primary care provider in one week. I have been assigned to dictate discharge summary for this account. I was not involved in the patient's management. Vy Munroe NP Jul 13, 2020 10:21
== END 2020-07-11 15:50 | disposition home or self-care (01) | DRG 908 ==
LOC: EMR 19:31 → 3E 19:44 → EDBEDREQ 20:48
PROC: 0JX80ZZ Transfer Abdomen Subcutaneous Tissue and Fascia, Open Approach (ICD-10-PCS; principal; 2020-07-10 12:00)
PROC: 0WBF0ZZ Excision of Abdominal Wall, Open Approach (ICD-10-PCS; principal; 2020-07-10 12:00)
DX: T81.31XA Disruption of external operation (surgical) wound, not elsewhere classified, initial encounter (principal); T81.49XA Infection following a procedure, other surgical site, initial encounter; Y83.8 Other surgical procedures as the cause of abnormal reaction of the patient, or of later complication, without mention of misadventure at the time of the procedure; I10 Essential (primary) hypertension; G40.909 Epilepsy, unspecified, not intractable, without status epilepticus; E03.9 Hypothyroidism, unspecified; Z79.82 Long term (current) use of aspirin; Z90.49 Acquired absence of other specified parts of digestive tract
CPT/HCPCS: 36415; 74177; 80048; 80053; 82150; 83690; 85025; 85610; 85651; 85730; 86140; 87070; 87181; 87205; 93005; 94003; 94150; 99285; J2250; U0002

== ENCOUNTER 2020-07-29 15:41 | Inpatient (IN) | payer MEDICARE, OTHER ==
[~2020-07-29] VITALS: Ht 165.1 cm; Wt 70.2 kg
[~2020-07-29 15:41] MED LIST changes: +COLACE100 MG ORAL; +HYDROCODON-ACE1 EA15 ORAL; +POTASSIUM CHLO20 ME1 ORAL; +TOPIRAMATE100 MG ORAL
[2020-07-29 16:00] VITALS: BP 130/78
--- NOTE | 2020-07-29 16:10 | Emergency Room Report ---
History of Present Illness General Chief Complaint: General Complaint Source: Patient Present Illness HPI Disclaimer: Please note that this report is being documented using DRAGON technology. This can lead to erroneous entry secondary to incorrect interpretation by the dictating instrument. HPI: 75 female with history of colovesicular fistula with complicated postsurgical course requiring revision for dehiscence presents again with wound dehiscence. Patient scheduled for revision with her surgeon tomorrow. Denies fever, chills, nausea, vomiting, diarrhea. No other changes in health. No other complaints. No pain at this time. Saw her surgeon Dr. Rodriguez earlier place PURA drain and wound dressing. PMH: Seizure disorder, hypertension, hypothyroidism PSH: Reviewed Allergies: Reviewed Social Hx: Reviewed Allergies: Coded Allergies: No Known Allergies (Unverified , 03/10/20) COVID-19 Screening Contact w/high risk pt: No Experienced COVID-19 symptoms?: No COVID-19 Testing performed BIOMETRICIAN: No Patient History Now: No Nursing Documentation-PMH Hx Cardiac Problems: Yes Hx Cancer: No Hx Gastrointestinal Problems: No - colon surgery last 02/2020 Hx Neurological Problems: Yes Hx Seizures: Yes Hx Epilepsy: Yes Review of Systems All Other Systems: negative except mentioned in HPI Physical Exam Vital Signs Date Time Temp Pulse Resp B/P (MAP) Pulse Ox O2 Delivery O2 Flow Rate FiO2 07/29/20 15:52 97.3 79 19 138/84 (102) 97 Room Air General: Awake and alert, no acute distress HEENT: NC/AT. EOMI. Cardiovascular: RRR. S1 and S2 normal. No murmur appreciated Resp: Normal work of breathing. No cough, wheezing or crackles appreciated Abdomen: Abdomen is soft, nondistended. Surgical site as described below Skin: Midline abdominal scar vertically oriented with clean dressing applied. PURA drain lower abdomen left side serosanguineous fluid. No active drainage or bleeding at this time. No purulent drainage. MSK: Normal tone and bulk. Moving all extremities. No obvious deformity. Neuro: Awake and alert. Mentating appropriately. Medical Decision Making Diagnostic Impression: Primary Impression: Postoperative wound dehiscence ER Course 74-year-old female presents for wound dehiscence and plan for surgical repair. Preop labs sent. Patient will be admitted. She is in stable condition. Admitted to [facility] per surgeon, Dr. Rodriguez Laboratory Tests Test 07/29/20 16:15 White Blood Count 7.3 K/UL (4.8-10.8) Red Blood Count 5.12 M/UL (4.20-5.40) Hemoglobin 14.7 G/DL (12.0-16.0) Hematocrit 45.7 % (37.0-47.0) Mean Corpuscular Volume 89 FL (80-99) Mean Corpuscular Hemoglobin 28.6 PG (27.0-31.0) Mean Corpuscular Hemoglobin Concent 32.0 G/DL (32.0-36.0) Red Cell Distribution Width 14.8 % (11.6-14.8) Platelet Count 352 K/UL (150-450) Mean Platelet Volume 7.2 FL (6.5-10.1) Neutrophils (%) (Auto) 61.5 % (45.0-75.0) Lymphocytes (%) (Auto) 30.9 % (20.0-45.0) Monocytes (%) (Auto) 4.9 % (1.0-10.0) Eosinophils (%) (Auto) 1.6 % (0.0-3.0) Basophils (%) (Auto) 1.2 % (0.0-2.0) Prothrombin Time 11.1 SEC (9.30-11.50) Prothrombin Time INR 1.0 (0.9-1.1) Activated Partial Thromboplast Time 28 SEC (23-33) Sodium Level 143 MMOL/L (136-145) Potassium Level 3.8 MMOL/L (3.5-5.1) Chloride Level 108 MMOL/L (98-107) H Carbon Dioxide Level 28 MMOL/L (21-32) Anion Gap 7 mmol/L (5-15) Blood Urea Nitrogen 12 mg/dL (7-18) Creatinine 1.0 MG/DL (0.55-1.30) Estimated Glomerular Filtration Rate 54.5 mL/min (>60) Glucose Level 106 MG/DL (74-106) Calcium Level 9.2 MG/DL (8.5-10.1) Total Bilirubin 0.3 MG/DL (0.2-1.0) Aspartate Amino Transferase (AST) 13 U/L (15-37) L Alanine Aminotransferase (ALT) 12 U/L (12-78) Alkaline Phosphatase 127 U/L (46-116) H Total Protein 8.4 G/DL (6.4-8.2) H Albumin 3.6 G/DL (3.4-5.0) Globulin 4.8 g/dL Albumin/Globulin Ratio 0.8 (1.0-2.7) L Microbiology Date/Time Source Procedure Growth Status 07/29/20 16:15 Nasopharynx SARS-CoV-2 RdRp Gene Assay - Final Complete Last Vital Signs Date Time Temp Pulse Resp B/P (MAP) Pulse Ox O2 Delivery O2 Flow Rate FiO2 07/29/20 15:52 97.3 79 19 138/84 (102) 97 Room Air Disposition: ADMITTED INPATIENT Condition: Stable Scott Chapin MD Jul 29, 2020 16:10
[2020-07-29 16:33] LABS: BASOPHILS % (AUTO) 1.2 % (0.0-2.0); EOSINOPHILS % (AUTO) 1.6 % (0.0-3.0); HEMATOCRIT 45.7 % (37.0-47.0); HEMOGLOBIN 14.7 G/DL (12.0-16.0); LYMPHOCYTES % (AUTO) 30.9 % (20.0-45.0); MEAN CORPUSCULAR VOLUME 89 FL (80-99); MONOCYTES % (AUTO) 4.9 % (1.0-10.0); NEUTROPHILS % (AUTO) 61.5 % (45.0-75.0); PLATELET COUNT 352 K/UL (150-450); RED BLOOD COUNT 5.12 M/UL (4.20-5.40); RED CELL DISTRIBUTION WIDTH 14.8 % (11.6-14.8); WHITE BLOOD COUNT 7.3 K/UL (4.8-10.8)
[2020-07-29 16:54] LABS: CALCIUM 9.2 MG/DL (8.5-10.1); POTASSIUM 3.8 MMOL/L (3.5-5.1)
[2020-07-29 16:59] LABS: ALBUMIN 3.6 G/DL (3.4-5.0); ALBUMIN/GLOBULIN RATIO 0.8 (1.0-2.7); BILIRUBIN,TOTAL 0.3 MG/DL (0.2-1.0)
[2020-07-29] MEDS ORDERED: HYDROmorphone 1mg/ml Carpuject IVP PRN (17:00)
[2020-07-29] MEDS ORDERED: Albuterol/Ipratropium 3ml neb HHN PRN (17:00)
[2020-07-29 18:08] VITALS: BP 127/71
--- NOTE | 2020-07-29 19:22 | Consultation ---
History of Present Illness General Date patient seen: Jul 29, 2020 Reason for Hospitalization: General Complaint Present Illness HPI Complicated surgical patient hx colectomy for fistula recovered well. had midline wound seroma that lead to dehiscence and poor healing despite weeks of outpatient wound care with significant non compliance recent revision required and completely debrided to healthy tissue with complex closure and drain. did well for the first week and no issues. following noted some drainage for days but did not inform anyone and by the time seen had midline wound infection developed. wound opened and packing and dressings initiated. oral abx given course. finished today and seen in office with worsening wound. failed outpatient management. needs iv abx, wound washout and vac placement. Allergies: Coded Allergies: No Known Allergies (Unverified , 03/10/20) COVID-19 Screening Contact w/high risk pt: No Experienced COVID-19 symptoms?: No Medication History Scheduled Clonazepam* (Klonopin*), 0.5 MG ORAL Q6H, (Reported) Docusate Sodium* (Colace*), 100 MG ORAL TWICE A DAY Fesoterodine Fumarate (Toviaz), 8 MG PO DAILY, (Reported) Levetiracetam (Keppra), 1,000 MG ORAL BID, (Reported) Levothyroxine Sodium* (Synthroid*), 100 MCG ORAL DAILY, (Reported) Nitrofurantoin Monohyd/M-Cryst* (Macrobid 100 Mg*), 100 MG ORAL DAILY, (Reported) Potassium Chloride* (K-Dur*), 20 MEQ ORAL DAILY, (Reported) Topiramate* (Topamax*), 100 MG ORAL TWICE A DAY, (Reported) Scheduled PRN Hydrocodone/Acetaminophen 5-325* (Hydrocodone/Acetaminophen 5-325*), 1 TAB ORAL Q4H PRN Zolpidem Tartrate* (Ambien*), 10 MG ORAL BEDTIME PRN for Insomnia, (Reported) Patient History Healthcare decision maker Resuscitation status Advanced Directive on File Past Medical/Surgical History Past Medical/Surgical History: (1) Postoperative wound dehiscence (2) Postoperative wound cellulitis (3) Postoperative wound infection (4) Colonic fistula (5) Seizure disorder (6) Hypertension (7) History of hypertension Review of Systems Review of Symptoms General ROS: no weight loss or fever Psychological ROS: no depression or mood changes, no memory loss Ophthalmic ROS: no visual changes or eye irritation ENT ROS: no nasal congestion, hearing loss, dizziness Allergy and Immunology ROS: no allergic symptoms or urticaria Hematological and Lymphatic ROS: no swollen glands, unusual bleeding or bruising Endocrine ROS: no polyuria, polydipsia, weight changes, temperature intolerance Respiratory ROS: no cough, shortness of breath, or wheezing Cardiovascular ROS: no chest pain or dyspnea on exertion Gastrointestinal ROS: denies abdominal pain, bright red blood in stool. Musculoskeletal ROS: no myalgias or arthralgias Neurological ROS: no TIA or stroke symptoms Dermatological ROS: no new or changing skin lesions, rashes or pruritis Physical Exam Physical Exam General appearance: alert, cooperative, no distress, appears stated age Head: Normocephalic, without obvious abnormality, atraumatic Eyes: conjunctivae/corneas clear. PERRL, EOM's intact. Fundi benign Throat: Lips, mucosa, and tongue normal. Teeth and gums normal Neck: supple, symmetrical, trachea midline, no adenopathy, thyroid: not enlarged, symmetric, no tenderness/mass/nodules, no carotid bruit and no JVD Lungs: clear to auscultation bilaterally Heart: regular rate and rhythm, S1, S2 normal, no murmur, click, rub or gallop Abdomen: soft, non-tender. Bowel sounds normal. No masses, no organomegaly drain okay, wound opening Extremities: extremities normal, atraumatic, no cyanosis or edema Pulses: 2+ and symmetric Skin: Skin see Neurologic: Grossly normal Last 24 Hour Vital Signs Date Time Temp Pulse Resp B/P (MAP) Pulse Ox O2 Delivery O2 Flow Rate FiO2 07/29/20 19:00 98.1 81 19 133/75 98 Room Air 07/29/20 18:08 98.3 74 19 127/71 99 Room Air 07/29/20 16:00 98.0 80 19 130/78 97 Room Air 07/29/20 16:00 80 18 Room Air 07/29/20 15:52 97.3 79 19 138/84 (102) 97 Room Air Laboratory Tests Test 07/29/20 16:15 White Blood Count 7.3 K/UL (4.8-10.8) Red Blood Count 5.12 M/UL (4.20-5.40) Hemoglobin 14.7 G/DL (12.0-16.0) Hematocrit 45.7 % (37.0-47.0) Mean Corpuscular Volume 89 FL (80-99) Mean Corpuscular Hemoglobin 28.6 PG (27.0-31.0) Mean Corpuscular Hemoglobin Concent 32.0 G/DL (32.0-36.0) Red Cell Distribution Width 14.8 % (11.6-14.8) Platelet Count 352 K/UL (150-450) Mean Platelet Volume 7.2 FL (6.5-10.1) Neutrophils (%) (Auto) 61.5 % (45.0-75.0) Lymphocytes (%) (Auto) 30.9 % (20.0-45.0) Monocytes (%) (Auto) 4.9 % (1.0-10.0) Eosinophils (%) (Auto) 1.6 % (0.0-3.0) Basophils (%) (Auto) 1.2 % (0.0-2.0) Prothrombin Time 11.1 SEC (9.30-11.50) Prothromb Time International Ratio 1.0 (0.9-1.1) Activated Partial Thromboplast Time 28 SEC (23-33) Sodium Level 143 MMOL/L (136-145) Potassium Level 3.8 MMOL/L (3.5-5.1) Chloride Level 108 MMOL/L (98-107) H Carbon Dioxide Level 28 MMOL/L (21-32) Anion Gap 7 mmol/L (5-15) Blood Urea Nitrogen 12 mg/dL (7-18) Creatinine 1.0 MG/DL (0.55-1.30) Estimat Glomerular Filtration Rate 54.5 mL/min (>60) Glucose Level 106 MG/DL (74-106) Calcium Level 9.2 MG/DL (8.5-10.1) Total Bilirubin 0.3 MG/DL (0.2-1.0) Aspartate Amino Transf (AST/SGOT) 13 U/L (15-37) L Alanine Aminotransferase (ALT/SGPT) 12 U/L (12-78) Alkaline Phosphatase 127 U/L (46-116) H Total Protein 8.4 G/DL (6.4-8.2) H Albumin 3.6 G/DL (3.4-5.0) Globulin 4.8 g/dL Albumin/Globulin Ratio 0.8 (1.0-2.7) L Microbiology Date/Time Source Procedure Growth Status 07/29/20 16:15 Nasopharynx SARS-CoV-2 RdRp Gene Assay - Final Complete Height (Feet): 5 Height (Inches): 5.00 Weight (Pounds): 180 Medications Current Medications Medications (Trade) Dose Ordered Sig/Dorian Route PRN Reason Start Time Stop Time Status Last Admin Dose Admin Albuterol/ Ipratropium (Albuterol/ Ipratropium) 3 ml QIDPRN PRN HHN Shortness of Breath 07/29/20 17:00 08/03/20 16:59 Bisacodyl (Dulcolax) 10 mg HSPRN PRN RECTAL Constipation 07/29/20 21:00 10/27/20 20:59 Dextrose (Dextrose 50%) 25 ml Q30M PRN IV Hypoglycemia 07/29/20 17:00 10/27/20 16:59 Dextrose (Dextrose 50%) 50 ml Q30M PRN IV Hypoglycemia 07/29/20 17:00 10/27/20 16:59 Heparin Sodium (Porcine) (Heparin 5000 units/ml) 5,000 units EVERY 8 HOURS SUBQ 07/29/20 22:00 09/12/20 21:59 Hydromorphone HCl (Dilaudid) 1 mg QIDPRN PRN IVP Moderate Pain (Pain Scale 4-6) 07/29/20 17:00 08/05/20 16:59 Hydromorphone HCl (Dilaudid) 2 mg QIDPRN PRN IVP Severe Pain (Pain Scale 7-10) 07/29/20 17:00 08/05/20 16:59 Magnesium Hydroxide (Mom) 30 ml HSPRN PRN ORAL Constipation 07/29/20 21:00 08/28/20 20:59 Ondansetron HCl (Zofran) 4 mg Q6H PRN IVP Nausea & Vomiting 07/29/20 17:00 08/28/20 16:59 Polyethylene Glycol (Miralax) 17 gm HSPRN PRN ORAL Constipation 07/29/20 21:00 08/28/20 20:59 Assessment/Plan Problem List: (1) Postoperative wound dehiscence Assessment & Plan: failed outpatient management iv abx npo p mn or for washout and vac placement consent thank you ICD Codes: T81.31XA - Disruption of external operation (surgical) wound, not elsewhere classified, initial encounter SNOMED: 157142356, 756522471 (2) Postoperative wound cellulitis ICD Codes: T81.49XA - Infection following a procedure, other surgical site, initial encounter SNOMED: 195561267, 376318576 (3) Postoperative wound infection ICD Codes: T81.49XA - Infection following a procedure, other surgical site, initial encounter SNOMED: 72452043, 140660552 (4) Colonic fistula ICD Codes: K63.2 - Fistula of intestine SNOMED: 282047700 (5) Seizure disorder ICD Codes: G40.909 - Epilepsy, unspecified, not intractable, without status epilepticus SNOMED: 599324364 (6) Hypertension ICD Codes: I10 - Essential (primary) hypertension SNOMED: 23780225 (7) History of hypertension ICD Codes: Z86.79 - Personal history of other diseases of the circulatory system SNOMED: 995857012 Rafiq Rodriguez Jul 29, 2020 19:22
--- NOTE | 2020-07-29 19:29 | Pre-Procedure Note/Attestation ---
Pre-Procedure Note/Attestation Complete Prior to Procedure Procedure Narrative: abdominal wound washout and wound vac placement Indications for Procedure Pre-Operative Diagnosis: abd wound dehiscence Attestation I attest that I discussed the nature of the procedure; its benefits; risks and complications; and alternatives (and the risks and benefits of such alternatives), prior to the procedure, with the patient (or the patient's legal insurance claim representative). I attest that, if there was a reasonable possibility of needing a blood transfusion, the patient (or the patient's legal insurance claim representative) was given the [facility] standardized written summary, pursuant to the [place] Yvonne Blood Safety Act ([place] Health and Safety Code # 1645, as amended). I attest that I re-evaluated the patient just prior to the surgery and that there has been no change in the patient's H&P, except as documented below: Rafiq Rodriguez Jul 29, 2020 19:29
[2020-07-29] MEDS ORDERED: HYDROcodone/Acetamin 5/325 tab ORAL PRN (19:30)
[2020-07-29] MEDS ORDERED: LIPITOR20 MG ORAL (19:51)
[2020-07-29 20:00] VITALS: BP 141/73
[2020-07-29] MEDS ORDERED: Atorvastatin 20mg tab ORAL SCH (21:00)
[2020-07-29] MEDS ORDERED: Miralax 17gm pkt ORAL PRN (21:00)
[2020-07-29] MEDS ORDERED: Milk of Magnesia 30ml Ud ORAL PRN (21:00)
[2020-07-29] MEDS: Topiramate 100mg tab ORAL SCH (21:13)
[2020-07-29] MEDS: Heparin 5000 units/ml inj SUBQ SCH (21:13)
[2020-07-29] MEDS: Zolpidem 5mg tab ORAL PRN (21:13)
[2020-07-29] MEDS: Piperacillin/Tazobactam 3.375 GM in NS 110 ML IVPB SCH (21:14)
[2020-07-30] VITALS (12 sets, daily range): BP systolic 123–160; BP diastolic 63–79
[2020-07-30] MEDS: clonazePAM 0.5mg tab ORAL PRN ×2 (03:22→21:53)
[2020-07-30] MEDS: Piperacillin/Tazobactam 3.375 GM in NS 110 ML IVPB SCH ×3 (05:16→22:59)
[2020-07-30] MEDS: Heparin 5000 units/ml inj SUBQ SCH ×3 (05:17→21:54)
[2020-07-30 06:30] LABS: ALANINE AMINOTRANSFERASE 15 U/L (12-78); ALBUMIN 2.8 G/DL (3.4-5.0); ALBUMIN/GLOBULIN RATIO 0.7 (1.0-2.7); ALKALINE PHOSPHATASE 90 U/L (46-116); ANION GAP 8 mmol/L (5-15); ASPARTATE AMINO TRANSFERASE 13 U/L (15-37); BILIRUBIN,TOTAL 0.5 MG/DL (0.2-1.0); BLOOD UREA NITROGEN 11 mg/dL (7-18); CALCIUM 8.5 MG/DL (8.5-10.1); CARBON DIOXIDE 25 MMOL/L (21-32); CHLORIDE 113 MMOL/L (98-107); CREATININE 0.9 MG/DL (0.55-1.30); POTASSIUM 3.9 MMOL/L (3.5-5.1); SODIUM 146 MMOL/L (136-145)
[2020-07-30 06:59] LABS: BASOPHILS % (AUTO) 1.1 % (0.0-2.0); EOSINOPHILS % (AUTO) 2.6 % (0.0-3.0); HEMATOCRIT 39.4 % (37.0-47.0); HEMOGLOBIN 13.4 G/DL (12.0-16.0); LYMPHOCYTES % (AUTO) 34.9 % (20.0-45.0); MEAN CORPUSCULAR VOLUME 85 FL (80-99); MONOCYTES % (AUTO) 6.3 % (1.0-10.0); PLATELET COUNT 276 K/UL (150-450); RED BLOOD COUNT 4.64 M/UL (4.20-5.40); RED CELL DISTRIBUTION WIDTH 14.7 % (11.6-14.8); WHITE BLOOD COUNT 6.9 K/UL (4.8-10.8)
[2020-07-30] MEDS ORDERED: fentaNYL 100 mcg/2 mL IV ONE (08:26)
[2020-07-30] MEDS ORDERED: Lidocaine 1% MPF 10mg/ml 5ml ONE (08:29)
[2020-07-30] MEDS: Topiramate 100mg tab ORAL SCH ×2 (08:30→17:46)
[2020-07-30] MEDS: Docusate 100mg cap ORAL SCH ×2 (08:30→17:46)
[2020-07-30] MEDS ORDERED: Bacitracin 50000 Units Vial ONE (09:18)
--- NOTE | 2020-07-30 09:22 | History and Physical ---
History of Present Illness General Date patient seen: Jul 30, 2020 Reason for Hospitalization: General Complaint Present Illness HPI 74 year old female with HTN, hypothyroidism, seizure disorder, history of colovesicular fistula s/p colon resection 2001 who presented to the ER due to abdominal wall infection. Patient has a history of colectomy for fistula. Prior dehiscence and poor healing despite weeks of outpatient wound care with significant non compliance. recently had a revision. Initially did well but then experienced drainage however did not inform her surgeon. She subsequently developed a midline wound infection. She was placed on oral antibiotics, wound care done. She was followed up in surgeon's office and found to have worsening infection. she is going to the OR for wound wash out and vac placement. Allergies: Coded Allergies: No Known Allergies (Unverified , 03/10/20) COVID-19 Screening Contact w/high risk pt: No Experienced COVID-19 symptoms?: No Medication History Scheduled Atorvastatin Calcium* (Lipitor*), 20 MG ORAL BEDTIME, (Reported) Clonazepam* (Klonopin*), 0.5 MG ORAL Q6H, (Reported) Docusate Sodium* (Colace*), 100 MG ORAL TWICE A DAY Fesoterodine Fumarate (Toviaz), 8 MG PO DAILY, (Reported) Levetiracetam (Keppra), 1,000 MG ORAL BID, (Reported) Levothyroxine Sodium* (Synthroid*), 100 MCG ORAL DAILY, (Reported) Nitrofurantoin Monohyd/M-Cryst* (Macrobid 100 Mg*), 100 MG ORAL DAILY, (Reported) Potassium Chloride* (K-Dur*), 20 MEQ ORAL DAILY, (Reported) Topiramate* (Topamax*), 100 MG ORAL TWICE A DAY, (Reported) Scheduled PRN Hydrocodone/Acetaminophen 5-325* (Hydrocodone/Acetaminophen 5-325*), 1 TAB ORAL Q4H PRN Zolpidem Tartrate* (Ambien*), 10 MG ORAL BEDTIME PRN for Insomnia, (Reported) Patient History Healthcare decision maker Resuscitation status Advanced Directive on File Review of Systems Constitutional: Denies: no symptoms, see HPI, chills, sweats, fever, malaise, weakness, other Eye: Denies: no symptoms, see HPI, eye pain, blurred vision, tearing, double vision, nose pain, nose congestion, acuity changes, discharge, other ENT: Denies: no symptoms, see HPI, ear pain, ear discharge, nose pain, nose congestion, throat pain, throat swelling, mouth pain, hearing loss, nasal discha rge, other Respiratory: Denies: no symptoms, see HPI, cough, orthopnea, shortness of breath, stridor, wheezing, DANIELSON, sputum, other Cardiovascular: Denies: no symptoms, see HPI, chest pain, edema, palpitations, syncope, PND, other Gastrointestinal: Denies: no symptoms, see HPI, abdominal pain, constipation, diarrhea, nausea, vomiting, melena, hematemesis, other Genitourinary: Denies: no symptoms, see HPI, discharge, dysuria, frequency, hematuria, pain, retention, incontinence, urgency, vag bleed/dc, other Musculoskeletal: Denies: no symptoms, see HPI, back pain, gout, joint pain, joint swelling, muscle pain, muscle stiffness, other Skin: Reports: see HPI Psychiatric: Denies: no symptoms, see HPI, prior hx, anxiety, depressed feelings, emotional problems, SI, HI, hallucinations, other Neurological: Denies: no symptoms, see HPI, headache, numbness, paresthesia, seizure, tingling, tremors, focal weakness, syncope, dizziness, other Endocrine: Denies: no symptoms, see HPI, excessive sweating, flushing, intolerance to temperature, increased thirst, increased urine, unexplained weight loss, other Hematologic/Lymphatic: Denies: no symptoms, see HPI, anemia, blood clots, easy bleeding, easy bruising, swollen glands, diathesis, other Physical Exam General Appearance: no apparent distress Lines, tubes and drains: peripheral HEENT: normocephalic, atraumatic, anicteric, mucous membranes moist, PERRL Neck: non-tender, normal alignment, supple Respiratory/Chest: lungs clear Cardiovascular/Chest: normal peripheral pulses, normal rate, regular rhythm Abdomen: normal bowel sounds, non tender, soft Extremities: normal range of motion Neurologic: gold cutter II-XII grossly normal Musculoskeletal: normal muscle bulk Last 24 Hour Vital Signs Date Time Temp Pulse Resp B/P (MAP) Pulse Ox O2 Delivery O2 Flow Rate FiO2 07/30/20 08:50 Room Air 07/30/20 08:00 97.6 61 18 146/71 (96) 97 07/30/20 04:00 97.9 75 18 132/79 (96) 99 07/29/20 23:01 98.1 07/29/20 21:25 Room Air 07/29/20 20:00 97.9 68 18 141/73 (95) 99 07/29/20 19:00 98.1 81 19 133/75 98 Room Air 07/29/20 18:08 98.3 74 19 127/71 99 Room Air 07/29/20 16:00 98.0 80 19 130/78 97 Room Air 07/29/20 16:00 80 18 Room Air 07/29/20 15:52 97.3 79 19 138/84 (102) 97 Room Air Intake and Output 07/29/20 07/30/20 19:00 07:00 Intake Total 1080 ml Output Total 3 ml Balance 1077 ml Intake Oral 480 ml IV Total 600 ml Output Drainage Total 3 ml # Voids 1 3 # Bowel Movements 1 Laboratory Tests Test 07/29/20 16:15 07/30/20 05:22 White Blood Count 7.3 K/UL (4.8-10.8) 6.9 K/UL (4.8-10.8) Red Blood Count 5.12 M/UL (4.20-5.40) 4.64 M/UL (4.20-5.40) Hemoglobin 14.7 G/DL (12.0-16.0) 13.4 G/DL (12.0-16.0) Hematocrit 45.7 % (37.0-47.0) 39.4 % (37.0-47.0) Mean Corpuscular Volume 89 FL (80-99) 85 FL (80-99) Mean Corpuscular Hemoglobin 28.6 PG (27.0-31.0) 28.9 PG (27.0-31.0) Mean Corpuscular Hemoglobin Concent 32.0 G/DL (32.0-36.0) 34.0 G/DL (32.0-36.0) Red Cell Distribution Width 14.8 % (11.6-14.8) 14.7 % (11.6-14.8) Platelet Count 352 K/UL (150-450) 276 K/UL (150-450) Mean Platelet Volume 7.2 FL (6.5-10.1) 7.2 FL (6.5-10.1) Neutrophils (%) (Auto) 61.5 % (45.0-75.0) 55.0 % (45.0-75.0) Lymphocytes (%) (Auto) 30.9 % (20.0-45.0) 34.9 % (20.0-45.0) Monocytes (%) (Auto) 4.9 % (1.0-10.0) 6.3 % (1.0-10.0) Eosinophils (%) (Auto) 1.6 % (0.0-3.0) 2.6 % (0.0-3.0) Basophils (%) (Auto) 1.2 % (0.0-2.0) 1.1 % (0.0-2.0) Prothrombin Time 11.1 SEC (9.30-11.50) Prothromb Time International Ratio 1.0 (0.9-1.1) Activated Partial Thromboplast Time 28 SEC (23-33) Sodium Level 143 MMOL/L (136-145) 146 MMOL/L (136-145) H Potassium Level 3.8 MMOL/L (3.5-5.1) 3.9 MMOL/L (3.5-5.1) Chloride Level 108 MMOL/L (98-107) H 113 MMOL/L (98-107) H Carbon Dioxide Level 28 MMOL/L (21-32) 25 MMOL/L (21-32) Anion Gap 7 mmol/L (5-15) 8 mmol/L (5-15) Blood Urea Nitrogen 12 mg/dL (7-18) 11 mg/dL (7-18) Creatinine 1.0 MG/DL (0.55-1.30) 0.9 MG/DL (0.55-1.30) Estimat Glomerular Filtration Rate 54.5 mL/min (>60) > 60 mL/min (>60) Glucose Level 106 MG/DL (74-106) 89 MG/DL (74-106) Calcium Level 9.2 MG/DL (8.5-10.1) 8.5 MG/DL (8.5-10.1) Total Bilirubin 0.3 MG/DL (0.2-1.0) 0.5 MG/DL (0.2-1.0) Aspartate Amino Transf (AST/SGOT) 13 U/L (15-37) L 13 U/L (15-37) L Alanine Aminotransferase (ALT/SGPT) 12 U/L (12-78) 15 U/L (12-78) Alkaline Phosphatase 127 U/L (46-116) H 90 U/L (46-116) Total Protein 8.4 G/DL (6.4-8.2) H 6.8 G/DL (6.4-8.2) Albumin 3.6 G/DL (3.4-5.0) 2.8 G/DL (3.4-5.0) L Globulin 4.8 g/dL 4.0 g/dL Albumin/Globulin Ratio 0.8 (1.0-2.7) L 0.7 (1.0-2.7) L Erythrocyte Sedimentation Rate Pending C-Reactive Protein, Quantitative < 0.4 mg/dL (0.00-0.90) Microbiology Date/Time Source Procedure Growth Status 07/29/20 16:15 Nasopharynx SARS-CoV-2 RdRp Gene Assay - Final Complete Height (Feet): 5 Height (Inches): 5.00 Weight (Pounds): 180 Medications Current Medications Medications (Trade) Dose Ordered Sig/Dorian Route PRN Reason Start Time Stop Time Status Last Admin Dose Admin Acetaminophen/ Hydrocodone Bitart ([place] 5/325) 1 tab Q4H PRN ORAL Mild Pain (Pain Scale 1-3) 07/29/20 19:30 08/05/20 19:29 07/29/20 22:31 Albuterol/ Ipratropium (Albuterol/ Ipratropium) 3 ml QIDPRN PRN HHN Shortness of Breath 07/29/20 17:00 08/03/20 16:59 Atorvastatin Calcium (Lipitor) 20 mg MON-MON-MON ORAL 07/31/20 21:00 10/27/20 20:59 Bisacodyl (Dulcolax) 10 mg HSPRN PRN RECTAL Constipation 07/29/20 21:00 10/27/20 20:59 Clonazepam (KlonoPIN) 0.5 mg Q6H PRN ORAL For Anxiety 07/29/20 21:00 08/05/20 20:59 07/30/20 03:22 Dextrose (Dextrose 50%) 25 ml Q30M PRN IV Hypoglycemia 07/29/20 17:00 10/27/20 16:59 Dextrose (Dextrose 50%) 50 ml Q30M PRN IV Hypoglycemia 07/29/20 17:00 10/27/20 16:59 Docusate Sodium (Colace) 100 mg TWICE A DAY ORAL 07/30/20 09:00 08/29/20 08:59 07/30/20 08:30 Heparin Sodium (Porcine) (Heparin 5000 units/ml) 5,000 units EVERY 8 HOURS SUBQ 07/29/20 22:00 09/12/20 21:59 07/30/20 05:17 Hydromorphone HCl (Dilaudid) 1 mg QIDPRN PRN IVP Moderate Pain (Pain Scale 4-6) 07/29/20 17:00 08/05/20 16:59 Hydromorphone HCl (Dilaudid) 2 mg QIDPRN PRN IVP Severe Pain (Pain Scale 7-10) 07/29/20 17:00 08/05/20 16:59 Levetiracetam (Keppra) 1,000 mg BID ORAL 07/29/20 21:00 08/28/20 20:59 07/30/20 08:29 Levothyroxine Sodium (Synthroid) 100 mcg ACBREAKFAST ORAL 07/30/20 06:30 08/29/20 06:29 07/30/20 05:32 Magnesium Hydroxide (Mom) 30 ml HSPRN PRN ORAL Constipation 07/29/20 21:00 08/28/20 20:59 Nitrofurantoin (Macrobid) 100 mg DAILY ORAL 07/30/20 09:00 08/06/20 08:59 UNV Ondansetron HCl (Zofran) 4 mg Q6H PRN IVP Nausea & Vomiting 07/29/20 17:00 08/28/20 16:59 Piperacillin Sod/ Tazobactam Sod 3.375 gm/Sodium Chloride 110 ml @ 27.5 mls/hr EVERY 8 HOURS IVPB 07/29/20 22:00 08/03/20 21:59 07/30/20 05:16 Polyethylene Glycol (Miralax) 17 gm HSPRN PRN ORAL Constipation 07/29/20 21:00 08/28/20 20:59 Potassium Chloride (K-Dur) 20 meq DAILY ORAL 07/30/20 09:00 10/28/20 08:59 07/30/20 08:30 Sodium Chloride 1,000 ml @ 75 mls/hr [id number] IV 07/29/20 19:30 08/28/20 19:29 07/29/20 21:12 Topiramate (Topamax) 100 mg TWICE A DAY ORAL 07/29/20 21:00 08/28/20 20:59 07/30/20 08:30 Zolpidem Tartrate (Ambien) 5 mg BEDTIME PRN ORAL Insomnia 07/29/20 19:30 08/05/20 19:29 Assessment/Plan Status: stable Assessment/Plan: ASSESSMENT: 1. Abdominal wall wound infection with wound dehiscence. 2. Hypertension. 3. Seizure disorder. 4. Hypothyroidism. 5. History of colovesicular fistula, status post resection 6.HLD PLAN: 1. Admit the patient to surgical unit. 2. follow up with Dr. Jennifer quintana who has already taken the patient for surgery with abdominal wound exploration and wound excision and transfer with skin flap, complex multilayer. 3. follow up with the cultures and laboratory in the morning. 4. Code status is Full Code. 5. DVT prophylaxis is SCD. 6. Start the patient on broad spectrum antibiotics with Zosyn 7. continue levothyroxine 8.continue keppra , clonazepam 9.continue atorvastatin I spent 70 minutes on this encounter. Greater than 50% spent on counselling and care coordination time of note does not reflect time of encounter Adilson Tsang M.D. Jul 30, 2020 09:22
--- NOTE | 2020-07-30 10:05 | Anethesia Preoperative Eval ---
Anesthesia Pre-op PMH/ROS General Date of Evaluation: Jul 30, 2020 Time of Evaluation: 09:25 Anesthesiologist: Ronan ASA Score: ASA 2 Mallampati Score Class I : Soft palate, uvula, fauces, pillars visible Class II: Soft palate, uvula, fauces visible Class III: Soft palate, base of uvula visible Class IV: Only hard plate visible Mallampati Classification: Class II Surgeon: Rosa Isela Diagnosis: Abdominal wound dehisence Surgical Procedure: Abdominal wound revision Anesthesia History: none Family History: no anesthesia problems Allergies: Coded Allergies: No Known Allergies (Unverified , 03/10/20) Medications: see eMAR Patient NPO?: Yes Past Medical History Cardiovascular: Reports: HTN; Denies: CAD, AR, valve dz, arrhythmia, other Pulmonary: Denies: asthma, COPD, BETTY, other Gastrointestinal/Genitourinary: Reports: GERD; Denies: CRI, ESRD, other Neurologic/Psychiatric: Reports: depression/anxiety; Denies: dementia, CVA, TIA, other Endocrine: Reports: hypothyroidism; Denies: DM, steroids, other HEENT: Reports: cataract (L), cataract (R) - s/p Sx Hematology/Immune: Denies: anemia, DVT, bleeding disorder, other Musculoskeletal/Integumentary: Denies: OA, RA, DJD, DDD, edema, other Other: other - overweight PMH Narrative: as above PSxH Narrative: See H&P Anesthesia Pre-op Phys. Exam Physician Exam Last Vital Signs Date Time Temp Pulse Resp B/P (MAP) Pulse Ox O2 Delivery O2 Flow Rate FiO2 07/30/20 08:50 Room Air 07/30/20 08:00 97.6 61 18 146/71 (96) 97 Constitutional: NAD Neurologic: CN 2-12 intact Cardiovascular: RRR, no M/R/G Respiratory: CTA Gastrointestinal: S/NT/ND Airway Exam Mallampati Score: Class II MO: full Neck: stiff ROM: limited Teeth: missing Dentures: no upper, no lower Anesthesia Pre-op A/P Labs Hematology Test 07/29/20 16:15 07/30/20 05:22 White Blood Count 7.3 K/UL (4.8-10.8) 6.9 K/UL (4.8-10.8) Red Blood Count 5.12 M/UL (4.20-5.40) 4.64 M/UL (4.20-5.40) Hemoglobin 14.7 G/DL (12.0-16.0) 13.4 G/DL (12.0-16.0) Hematocrit 45.7 % (37.0-47.0) 39.4 % (37.0-47.0) Mean Corpuscular Volume 89 FL (80-99) 85 FL (80-99) Mean Corpuscular Hemoglobin 28.6 PG (27.0-31.0) 28.9 PG (27.0-31.0) Mean Corpuscular Hemoglobin Concent 32.0 G/DL (32.0-36.0) 34.0 G/DL (32.0-36.0) Red Cell Distribution Width 14.8 % (11.6-14.8) 14.7 % (11.6-14.8) Platelet Count 352 K/UL (150-450) 276 K/UL (150-450) Mean Platelet Volume 7.2 FL (6.5-10.1) 7.2 FL (6.5-10.1) Neutrophils (%) (Auto) 61.5 % (45.0-75.0) 55.0 % (45.0-75.0) Lymphocytes (%) (Auto) 30.9 % (20.0-45.0) 34.9 % (20.0-45.0) Monocytes (%) (Auto) 4.9 % (1.0-10.0) 6.3 % (1.0-10.0) Eosinophils (%) (Auto) 1.6 % (0.0-3.0) 2.6 % (0.0-3.0) Basophils (%) (Auto) 1.2 % (0.0-2.0) 1.1 % (0.0-2.0) Erythrocyte Sedimentation Rate Pending Coagulation Test 07/29/20 16:15 Prothrombin Time 11.1 SEC (9.30-11.50) Prothromb Time International Ratio 1.0 (0.9-1.1) Activated Partial Thromboplast Time 28 SEC (23-33) Chemistry Test 07/29/20 16:15 12/3/20 05:22 Sodium Level 143 MMOL/L (136-145) 146 MMOL/L (136-145) H Potassium Level 3.8 MMOL/L (3.5-5.1) 3.9 MMOL/L (3.5-5.1) Chloride Level 108 MMOL/L (98-107) H 113 MMOL/L (98-107) H Carbon Dioxide Level 28 MMOL/L (21-32) 25 MMOL/L (21-32) Anion Gap 7 mmol/L (5-15) 8 mmol/L (5-15) Blood Urea Nitrogen 12 mg/dL (7-18) 11 mg/dL (7-18) Creatinine 1.0 MG/DL (0.55-1.30) 0.9 MG/DL (0.55-1.30) Estimat Glomerular Filtration Rate 54.5 mL/min (>60) > 60 mL/min (>60) Glucose Level 106 MG/DL (74-106) 89 MG/DL (74-106) Calcium Level 9.2 MG/DL (8.5-10.1) 8.5 MG/DL (8.5-10.1) Total Bilirubin 0.3 MG/DL (0.2-1.0) 0.5 MG/DL (0.2-1.0) Aspartate Amino Transf (AST/SGOT) 13 U/L (15-37) L 13 U/L (15-37) L Alanine Aminotransferase (ALT/SGPT) 12 U/L (12-78) 15 U/L (12-78) Alkaline Phosphatase 127 U/L (46-116) H 90 U/L (46-116) Total Protein 8.4 G/DL (6.4-8.2) H 6.8 G/DL (6.4-8.2) Albumin 3.6 G/DL (3.4-5.0) 2.8 G/DL (3.4-5.0) L Globulin 4.8 g/dL 4.0 g/dL Albumin/Globulin Ratio 0.8 (1.0-2.7) L 0.7 (1.0-2.7) L C-Reactive Protein, Quantitative < 0.4 mg/dL (0.00-0.90) Studies Pre-op Studies: EKG - NSR Risk Assessment & Plan Assessment: ASA 2 Plan: GA with LMA Status Change Before Surgery: No Pre-Antibiotics Drug: Ancef 1gr Given Within 1 Hr of Incision: Yes Time Given: 09:52 John Ferraro MD Jul 30, 2020 10:05
[2020-07-30] MEDS ORDERED: fentaNYL 100 mcg/2 mL IV PRN (10:15)
[2020-07-30] MEDS ORDERED: LR 1000ml 1,000 ML IVLG SCH (10:15)
[2020-07-30] MEDS ORDERED: Ketorolac 30mg Inj IV PRN (10:15)
--- NOTE | 2020-07-30 10:18 | Brief Operative Note ---
Immediate Post Operative Note Operative Note Pre-op Diagnosis: abd wound dehiscence Procedure: abdominal wound washout 13cm x 5cm x 4cm wound vac application Post-op Diagnosis: same as pre-op Surgeon: rafiq rodriguez md Anesthesiologist: ryan Anesthesia: general Specimen: yes Complications: none Condition: stable Fluids: see Estimated Blood Loss: minimal Drains: wound vac Implant(s) used?: No Rafiq Rodriguez Jul 30, 2020 10:18
[2020-07-30] MEDS ORDERED: HYDROcodone/Acetamin 5/325 tab ORAL PRN (10:30)
[2020-07-30] MEDS ORDERED: HYDROcodone/Acetamin 10/325 tab ORAL PRN (10:30)
--- NOTE | 2020-07-30 10:32 | Immediate Post-Op Evaluation ---
Immediate Post-Op Evalulation Immediate Post-Op Evalulation Procedure: Revision of abdominal wound with woundvac placement Date of Evaluation: Jul 30, 2020 Time of Evaluation: 10:31 IV Fluids: 300 Blood Products: none Estimated Blood Loss: min Urinary Output: 150 Blood Pressure Systolic: 148 Blood Pressure Diastolic: 64 Pulse Rate: 72 Respiratory Rate: 20 O2 Sat by Pulse Oximetry: 99 Temperature (Fahrenheit): 97.6 Pain Score (1-10): 1 Nausea: No Vomiting: No Complications none Patient Status: awake, patent, none Hydration Status: adequate John Ferraro MD Jul 30, 2020 10:32
[2020-07-30] MEDS ORDERED: DiphenhydrAMINE 50mg/ml Inj ONE (10:59)
[2020-07-30] MEDS ORDERED: DiphenhydrAMINE 50mg/ml Inj IVP SCH (11:00)
--- NOTE | 2020-07-30 12:52 | Infectious Diseases Prog Note ---
Assessment/Plan Assessment/Plan Full consult to follow: Asked by Dr. Tomas to see patient A) 1) abdominal wall wound dehiscence 2) possible wound infection 3) s/p washout 4) hx of colectomy and fistula P) 1) zosyn 2) f/u on wound culture 3) thank you Subjective Allergies: Coded Allergies: No Known Allergies (Unverified , 03/10/20) Objective Last 24 Hour Vital Signs Date Time Temp Pulse Resp B/P (MAP) Pulse Ox O2 Delivery O2 Flow Rate FiO2 07/30/20 12:00 97.6 18 137/63 (87) 97 07/30/20 11:35 97.2 07/30/20 11:25 97.6 53 14 145/69 100 Room Air 07/30/20 11:10 55 15 150/69 98 Room Air 07/30/20 10:55 54 15 131/68 100 Room Air 07/30/20 10:45 55 15 149/66 100 Simple Mask 6 07/30/20 10:35 56 18 154/68 100 Simple Mask 6 07/30/20 10:32 72 20 99 07/30/20 10:30 60 22 149/71 100 Simple Mask 6 07/30/20 10:26 97.2 72 24 160/72 100 Simple Mask 6 07/30/20 08:50 Room Air 07/30/20 08:00 97.6 61 18 146/71 (96) 97 07/30/20 04:00 97.9 75 18 132/79 (96) 99 07/29/20 23:01 98.1 07/29/20 21:25 Room Air 07/29/20 20:00 97.9 68 18 141/73 (95) 99 07/29/20 19:00 98.1 81 19 133/75 98 Room Air 07/29/20 18:08 98.3 74 19 127/71 99 Room Air 07/29/20 16:00 98.0 80 19 130/78 97 Room Air 07/29/20 16:00 80 18 Room Air 07/29/20 15:52 97.3 79 19 138/84 (102) 97 Room Air Height (Feet): 5 Height (Inches): 5.00 Weight (Pounds): 180 Microbiology Date/Time Source Procedure Growth Status 07/29/20 16:15 Nasopharynx SARS-CoV-2 RdRp Gene Assay - Final Complete Laboratory Tests Test 07/29/20 16:15 07/30/20 05:22 White Blood Count 7.3 K/UL (4.8-10.8) 6.9 K/UL (4.8-10.8) Red Blood Count 5.12 M/UL (4.20-5.40) 4.64 M/UL (4.20-5.40) Hemoglobin 14.7 G/DL (12.0-16.0) 13.4 G/DL (12.0-16.0) Hematocrit 45.7 % (37.0-47.0) 39.4 % (37.0-47.0) Mean Corpuscular Volume 89 FL (80-99) 85 FL (80-99) Mean Corpuscular Hemoglobin 28.6 PG (27.0-31.0) 28.9 PG (27.0-31.0) Mean Corpuscular Hemoglobin Concent 32.0 G/DL (32.0-36.0) 34.0 G/DL (32.0-36.0) Red Cell Distribution Width 14.8 % (11.6-14.8) 14.7 % (11.6-14.8) Platelet Count 352 K/UL (150-450) 276 K/UL (150-450) Mean Platelet Volume 7.2 FL (6.5-10.1) 7.2 FL (6.5-10.1) Neutrophils (%) (Auto) 61.5 % (45.0-75.0) 55.0 % (45.0-75.0) Lymphocytes (%) (Auto) 30.9 % (20.0-45.0) 34.9 % (20.0-45.0) Monocytes (%) (Auto) 4.9 % (1.0-10.0) 6.3 % (1.0-10.0) Eosinophils (%) (Auto) 1.6 % (0.0-3.0) 2.6 % (0.0-3.0) Basophils (%) (Auto) 1.2 % (0.0-2.0) 1.1 % (0.0-2.0) Prothrombin Time 11.1 SEC (9.30-11.50) Prothromb Time International Ratio 1.0 (0.9-1.1) Activated Partial Thromboplast Time 28 SEC (23-33) Sodium Level 143 MMOL/L (136-145) 146 MMOL/L (136-145) H Potassium Level 3.8 MMOL/L (3.5-5.1) 3.9 MMOL/L (3.5-5.1) Chloride Level 108 MMOL/L (98-107) H 113 MMOL/L (98-107) H Carbon Dioxide Level 28 MMOL/L (21-32) 25 MMOL/L (21-32) Anion Gap 7 mmol/L (5-15) 8 mmol/L (5-15) Blood Urea Nitrogen 12 mg/dL (7-18) 11 mg/dL (7-18) Creatinine 1.0 MG/DL (0.55-1.30) 0.9 MG/DL (0.55-1.30) Estimat Glomerular Filtration Rate 54.5 mL/min (>60) > 60 mL/min (>60) Glucose Level 106 MG/DL (74-106) 89 MG/DL (74-106) Calcium Level 9.2 MG/DL (8.5-10.1) 8.5 MG/DL (8.5-10.1) Total Bilirubin 0.3 MG/DL (0.2-1.0) 0.5 MG/DL (0.2-1.0) Aspartate Amino Transf (AST/SGOT) 13 U/L (15-37) L 13 U/L (15-37) L Alanine Aminotransferase (ALT/SGPT) 12 U/L (12-78) 15 U/L (12-78) Alkaline Phosphatase 127 U/L (46-116) H 90 U/L (46-116) Total Protein 8.4 G/DL (6.4-8.2) H 6.8 G/DL (6.4-8.2) Albumin 3.6 G/DL (3.4-5.0) 2.8 G/DL (3.4-5.0) L Globulin 4.8 g/dL 4.0 g/dL Albumin/Globulin Ratio 0.8 (1.0-2.7) L 0.7 (1.0-2.7) L Erythrocyte Sedimentation Rate 24 MM/HR (0-30) C-Reactive Protein, Quantitative < 0.4 mg/dL (0.00-0.90) Current Medications Medications (Trade) Dose Ordered Sig/Dorian Route PRN Reason Start Time Stop Time Status Last Admin Dose Admin Acetaminophen/ Hydrocodone Bitart ([place] 10/325) 1 tab Q4H PRN ORAL Severe Pain (Pain Scale 7-10) 07/30/20 10:30 08/06/20 10:29 Acetaminophen/ Hydrocodone Bitart ([place] 5/325) 1 tab Q4H PRN ORAL Mild Pain (Pain Scale 1-3) 07/29/20 19:30 08/05/20 19:29 07/29/20 22:31 Acetaminophen/ Hydrocodone Bitart ([place] 5/325) 1 tab Q4H PRN ORAL Moderate Pain (Pain Scale 4-6) 07/30/20 10:30 08/06/20 10:29 Al Hydroxide/Mg Hydroxide (Mylanta) 15 ml Q6H PRN ORAL DYSPEPSIA 07/30/20 10:30 08/29/20 10:29 Albuterol/ Ipratropium (Albuterol/ Ipratropium) 3 ml QIDPRN PRN HHN Shortness of Breath 07/29/20 17:00 08/03/20 16:59 Atorvastatin Calcium (Lipitor) 20 mg MON-MON-MON ORAL 07/31/20 21:00 10/27/20 20:59 Bisacodyl (Dulcolax) 10 mg HSPRN PRN RECTAL Constipation 07/29/20 21:00 10/27/20 20:59 Clonazepam (KlonoPIN) 0.5 mg Q6H PRN ORAL For Anxiety 07/29/20 21:00 08/05/20 20:59 07/30/20 03:22 Dextrose (Dextrose 50%) 25 ml Q30M PRN IV Hypoglycemia 07/29/20 17:00 10/27/20 16:59 Dextrose (Dextrose 50%) 50 ml Q30M PRN IV Hypoglycemia 07/29/20 17:00 10/27/20 16:59 Diphenhydramine HCl (Benadryl) 25 mg Q8H PRN ORAL Itching/Pruritis 07/30/20 10:30 08/29/20 10:29 Docusate Sodium (Colace) 100 mg TWICE A DAY ORAL 07/30/20 09:00 08/29/20 08:59 07/30/20 08:30 Heparin Sodium (Porcine) (Heparin 5000 units/ml) 5,000 units EVERY 8 HOURS SUBQ 07/29/20 22:00 09/12/20 21:59 07/30/20 05:17 Levetiracetam (Keppra) 1,000 mg BID ORAL 07/29/20 21:00 08/28/20 20:59 07/30/20 08:29 Levothyroxine Sodium (Synthroid) 100 mcg ACBREAKFAST ORAL 07/30/20 06:30 08/29/20 06:29 07/30/20 05:32 Magnesium Hydroxide (Mom) 30 ml HSPRN PRN ORAL Constipation 07/29/20 21:00 08/28/20 20:59 Ondansetron HCl (Zofran) 4 mg Q6H PRN IVP Nausea & Vomiting 07/29/20 17:00 08/28/20 16:59 Piperacillin Sod/ Tazobactam Sod 3.375 gm/Sodium Chloride 110 ml @ 27.5 mls/hr EVERY 8 HOURS IVPB 07/29/20 22:00 08/03/20 21:59 07/30/20 05:16 Polyethylene Glycol (Miralax) 17 gm HSPRN PRN ORAL Constipation 07/29/20 21:00 08/28/20 20:59 Potassium Chloride (K-Dur) 20 meq DAILY ORAL 07/30/20 09:00 10/28/20 08:59 07/30/20 08:30 Sodium Chloride 1,000 ml @ 75 mls/hr [id number] IV 07/29/20 19:30 08/28/20 19:29 07/29/20 21:12 Topiramate (Topamax) 100 mg TWICE A DAY ORAL 07/29/20 21:00 08/28/20 20:59 07/30/20 08:30 Zolpidem Tartrate (Ambien) 5 mg BEDTIME PRN ORAL Insomnia 07/29/20 19:30 08/05/20 19:29 Michael Velasco MD Jul 30, 2020 12:52
--- NOTE | 2020-07-30 13:18 | 48 Hour Post Anesthesia Eval ---
Post Anesthesia Evaluation Procedure: Revision of abdominal wound with woundvac placement Date of Evaluation: Jul 30, 2020 Time of Evaluation: 13:17 Blood Pressure Systolic: 128 0: 64 Pulse Rate: 72 Respiratory Rate: 18 Temperature (Fahrenheit): 97.6 O2 Sat by Pulse Oximetry: 98 Airway: patent Nausea: No Vomiting: No Pain Intensity: 2 Hydration Status: adequate Cardiopulmonary Status: stable Mental Status/LOC: patient returned to baseline Follow-up Care/Observations: n/a Post-Anesthesia Complications: none Follow-up care needed: N/A John Ferraro MD Jul 30, 2020 13:18
--- NOTE | 2020-07-30 19:01 | Operative Note - Dictated ---
DATE OF OPERATION: 07/30/2020 PREOPERATIVE DIAGNOSIS: Midline abdominal wound dehiscence. POSTOPERATIVE DIAGNOSIS: Midline abdominal wound dehiscence. OPERATION PERFORMED: Abdominal wound exploration, washout, and application of abdominal wound VAC. ATTENDING SURGEON: Rafiq Rodriguez MD CABLE SPOOLER: None. ANESTHESIOLOGIST: John Ferraro MD ANESTHESIA: General GETA plus local. ESTIMATED BLOOD LOSS: Minimal. IV FLUIDS: Please see Anesthesia records. COMPLICATIONS: None. COUNTS: Sponge and needle counts correct x2. SPECIMENS: Cultures. DRAINS: Wound VAC. INDICATIONS FOR PROCEDURE: This is a 74-year-old female with a chronic nonhealing surgical wound. 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 Presented to the clinic with seroma formation, which had opened up and led to a nonhealing midline wound, developed a subcutaneous tunneling wound fistula tract requiring taking patient to the operating room for excision of the fistula and complex flap closure. Drain was left in place. Patient did well, seen postoperatively in the office a week later. Wound was clean, dry, and intact. Drain had approximately 10 mL of serous drainage on a daily basis and she was improving. She was given a clear dressing and wound care instructions, but unfortunately was not compliant with that as well, left a saturated foul-smelling dressing in place for over a week when she was then seen in the office and identified to have a midline wound infection, superficial. Unfortunately, again looks like prior local wound care, especially on a home basis was difficult with the patient for noncompliance as she is not very capable of doing the wound care herself or relies on anyone else except her family, and wound care is only once a day available to go and help her at her home and office visits only available once a week. As the wound worsened and the history with likely very poor healing despite good nutritional status, a decision was made to take the patient to the operating room for removal of drain, wound washout, and wound VAC placement. Risks, benefits, and alternatives were discussed. Consent obtained. Patient was taken to the operating room on 07/30/2020. OPERATIVE NOTE: Patient was taken to the operating room and placed on the operating table in the supine position with bilateral arms out. All bony prominences were well padded. SCDs placed. Preoperative time-out taken identifying the patient, procedure, operative site, and surgical staff. General anesthesia induced and patient was intubated. The abdomen was clipped, prepped, and draped in standard surgical fashion. The midline wound was opened and upon opening it, just poor healing was identified at the level above the fascia. The fascia was well healed. Good dense scar tissue noted there, but the subcutaneous tissue would not come together appropriately and significant fluid collection was noticed throughout. No active infection noted, but culture was taken to ensure no overlying deep infection. The wound was washed out with copious amounts of saline. All tunneling tracts potentially were evaluated and everything was noted and opened widely. A wound VAC was applied. Patient was extubated and taken to postanesthetic care unit in stable condition. Rafiq Rodriguez M.D. DR: GEOVANNA JOB#: [id number] CC: KAYDEN
[2020-07-30] MEDS: Zolpidem 5mg tab ORAL PRN (23:05)
[2020-07-31] MEDS: Piperacillin/Tazobactam 3.375 GM in NS 110 ML IVPB SCH ×3 (05:55→22:01)
[2020-07-31] MEDS: Heparin 5000 units/ml inj SUBQ SCH ×3 (05:56→22:02)
[2020-07-31 07:59] VITALS: BP 134/79
[2020-07-31] MEDS: Topiramate 100mg tab ORAL SCH ×2 (09:21→18:07)
[2020-07-31] MEDS: Docusate 100mg cap ORAL SCH ×2 (09:21→18:07)
[2020-07-31] MEDS ORDERED: LR 1000ml ONE (09:30)
--- NOTE | 2020-07-31 11:38 | General Progress Note ---
Subjective Date patient seen: Jul 31, 2020 ROS Limited/Unobtainable: No Constitutional: Denies: no symptoms, chills, diaphoresis, fever, malaise, weakness, other HEENT: Denies: no symptoms, eye pain, blurred vision, tearing, double vision, ear pain, ear discharge, nose pain, nose congestion, throat pain, throat swelling, mouth pain, mouth swelling, other Cardiovascular: Denies: no symptoms, chest pain, edema, irregular heart rate, lightheadedness, palpitations, syncope, other Respiratory: Denies: no symptoms, cough, orthopnea, shortness of breath, SOB with excertion, SOB at rest, sputum, stridor, wheezing, other Gastrointestinal/Abdominal: Denies: no symptoms, abdomen distended, abdominal pain, black stools, tarry stools, blood in stool, constipated, diarrhea, difficulty swallowing, nausea, poor appetite, poor fluid intake, rectal bleeding, vomiting, other Genitourinary: Denies: no symptoms, burning, discharge, frequency, flank pain, hematuria, incontinence, pain, urgency, other Neurologic/Psychiatric: Denies: no symptoms, anxiety, depressed, emotional pr oblems, headache, numbness, paresthesia, pre-existing deficit, seizure, tingling, tremors, weakness, other Endocrine: Denies: no symptoms, excessive sweating, flushing, intolerance to cold, intolerance to heat, increased hunger, increased thirst, increased urine, unexplained weight gain, unexplained weight loss, other Hematologic/Lymphatic: Denies: no symptoms, anemia, easy bleeding, easy bruising, other Allergies: Coded Allergies: No Known Allergies (Unverified , 03/10/20) Subjective pod#1 doing well wound vac in place and draining SS ambulating Objective Last 24 Hour Vital Signs Date Time Temp Pulse Resp B/P (MAP) Pulse Ox O2 Delivery O2 Flow Rate FiO2 07/31/20 09:00 Room Air 07/31/20 07:59 98.4 76 16 134/79 (97) 97 07/30/20 21:00 Room Air 07/30/20 20:00 98.4 75 18 135/72 (93) 96 07/30/20 16:00 98.0 76 18 123/66 (85) 96 07/30/20 13:18 72 18 98 07/30/20 12:00 97.6 18 137/63 (87) 97 Intake and Output 07/30/20 07/31/20 19:00 07:00 Intake Total 910 ml 240 ml Output Total 170 ml 30 ml Balance 740 ml 210 ml Intake Oral 400 ml 240 ml IV Total 510 ml Output Urine Total 150 ml Drainage Total 20 ml 30 ml # Voids 3 4 Height (Feet): 5 Height (Inches): 5.00 Weight (Pounds): 180 General Appearance: WD/WN, no apparent distress EENT: PERRL/EOMI, normal ENT inspection Neck: non-tender, normal alignment, supple Cardiovascular: normal peripheral pulses, normal rate, regular rhythm Respiratory/Chest: chest wall non-tender, lungs clear, normal breath sounds, no respiratory distress Abdomen: normal bowel sounds, non tender, soft, other - wound vac in place Extremities: normal range of motion Neurologic: concrete pointer II-XII grossly normal Skin: normal pigmentation Assessment/Plan Status: stable Assessment/Plan: ASSESSMENT: 1. Abdominal wall wound infection with wound dehiscence. pod # 1 s/p wash out and wound vac placement 2. Hypertension. 3. Seizure disorder. 4. Hypothyroidism. 5. History of colovesicular fistula, status post resection 6.HLD PLAN: 1. Admit the patient to surgical unit. 2. follow up with Dr. Rodriguez 3. follow up with the cultures 4. Code status is Full Code. 5. DVT prophylaxis is SCD. 6. continue broad spectrum antibiotics with Zosyn . Id on board 7. continue levothyroxine 8.continue keppra , clonazepam 9.continue atorvastatin I spent 40 minutes on this encounter. Greater than 50% spent on counselling and care coordination time of note does not reflect time of encounter Adilson Tsang M.D. Jul 31, 2020 11:38
[2020-07-31 12:00] VITALS: BP 129/71
[2020-07-31 16:00] VITALS: BP 149/80
--- NOTE | 2020-07-31 16:12 | Surgery Progress Note ---
Surgery Progress Note Subjective Procedure Performed abdominal wound washout 13cm x 5cm x 4cm wound vac application Additional Comments doing well post op no n/v pain improved now vac working supplies ordered for d/c planning discussed with daughter Objective Last 24 Hour Vital Signs Date Time Temp Pulse Resp B/P (MAP) Pulse Ox O2 Delivery O2 Flow Rate FiO2 07/31/20 12:00 97.2 76 16 129/71 (90) 97 07/31/20 09:00 Room Air 07/31/20 07:59 98.4 76 16 134/79 (97) 97 07/30/20 21:00 Room Air 07/30/20 20:00 98.4 75 18 135/72 (93) 96 I&O Intake and Output 07/30/20 07/31/20 19:00 07:00 Intake Total 910 ml 240 ml Output Total 170 ml 30 ml Balance 740 ml 210 ml Intake Oral 400 ml 240 ml IV Total 510 ml Output Urine Total 150 ml Drainage Total 20 ml 30 ml # Voids 3 4 Drains: wound vac Plan Problems: (1) Postoperative wound dehiscence Assessment & Plan: failed outpatient management iv abx npo p mn or for washout and vac placement consent thank you (2) Postoperative wound cellulitis (3) Postoperative wound infection (4) Colonic fistula (5) Seizure disorder (6) Hypertension (7) History of hypertension Rafiq Rodriguez Jul 31, 2020 16:12
--- NOTE | 2020-07-31 16:21 | Infectious Diseases Prog Note ---
Assessment/Plan Assessment/Plan Full consult dictated: A) 1) abdominal wall wound dehiscence 2) possible wound infection 3) s/p washout 4) hx of colectomy and fistula P) 1) zosyn 2) f/u on wound culture 3) will f/u 4) d/w patient and daughter Subjective Constitutional: Reports: fever HEENT: Reports: congestion Respiratory: Reports: shortness of breath Cardiovascular: Reports: chest pain Gastrointestinal/Abdominal: Reports: nausea, vomiting Genitourinary: Reports: other - no miller Allergies: Coded Allergies: No Known Allergies (Unverified , 03/10/20) Objective Last 24 Hour Vital Signs Date Time Temp Pulse Resp B/P (MAP) Pulse Ox O2 Delivery O2 Flow Rate FiO2 07/31/20 12:00 97.2 76 16 129/71 (90) 97 07/31/20 09:00 Room Air 07/31/20 07:59 98.4 76 16 134/79 (97) 97 07/30/20 21:00 Room Air 07/30/20 20:00 98.4 75 18 135/72 (93) 96 Height (Feet): 5 Height (Inches): 5.00 Weight (Pounds): 180 HEENT: normocephalic, atraumatic, anicteric Respiratory/Chest: lungs clear, normal breath sounds Cardiovascular: normal rate, regular rhythm Abdomen: soft, non tender, no organomegaly Microbiology Date/Time Source Procedure Growth Status 07/29/20 16:15 Nasopharynx SARS-CoV-2 RdRp Gene Assay - Final Complete Current Medications Medications (Trade) Dose Ordered Sig/Dorian Route PRN Reason Start Time Stop Time Status Last Admin Dose Admin Acetaminophen/ Hydrocodone Bitart ([place] 10/325) 1 tab Q4H PRN ORAL Severe Pain (Pain Scale 7-10) 07/30/20 10:30 08/06/20 10:29 Acetaminophen/ Hydrocodone Bitart ([place] 5/325) 1 tab Q4H PRN ORAL Mild Pain (Pain Scale 1-3) 07/29/20 19:30 08/05/20 19:29 07/29/20 22:31 Acetaminophen/ Hydrocodone Bitart ([place] 5/325) 1 tab Q4H PRN ORAL Moderate Pain (Pain Scale 4-6) 07/30/20 10:30 08/06/20 10:29 Al Hydroxide/Mg Hydroxide (Mylanta) 15 ml Q6H PRN ORAL DYSPEPSIA 07/30/20 10:30 08/29/20 10:29 Albuterol/ Ipratropium (Albuterol/ Ipratropium) 3 ml QIDPRN PRN HHN Shortness of Breath 07/29/20 17:00 08/03/20 16:59 Atorvastatin Calcium (Lipitor) 20 mg MON-MON-MON ORAL 07/31/20 21:00 10/27/20 20:59 Bisacodyl (Dulcolax) 10 mg HSPRN PRN RECTAL Constipation 07/29/20 21:00 10/27/20 20:59 Clonazepam (KlonoPIN) 0.5 mg Q6H PRN ORAL For Anxiety 07/29/20 21:00 08/05/20 20:59 07/30/20 21:53 Dextrose (Dextrose 50%) 25 ml Q30M PRN IV Hypoglycemia 07/29/20 17:00 10/27/20 16:59 Dextrose (Dextrose 50%) 50 ml Q30M PRN IV Hypoglycemia 07/29/20 17:00 10/27/20 16:59 Diphenhydramine HCl (Benadryl) 25 mg Q8H PRN ORAL Itching/Pruritis 07/30/20 10:30 08/29/20 10:29 Docusate Sodium (Colace) 100 mg TWICE A DAY ORAL 07/30/20 09:00 08/29/20 08:59 07/31/20 09:21 Heparin Sodium (Porcine) (Heparin 5000 units/ml) 5,000 units EVERY 8 HOURS SUBQ 07/29/20 22:00 09/12/20 21:59 07/31/20 14:49 Levetiracetam (Keppra) 1,000 mg BID ORAL 07/29/20 21:00 08/28/20 20:59 07/31/20 09:22 Levothyroxine Sodium (Synthroid) 100 mcg ACBREAKFAST ORAL 07/30/20 06:30 08/29/20 06:29 07/31/20 05:57 Magnesium Hydroxide (Mom) 30 ml HSPRN PRN ORAL Constipation 07/29/20 21:00 08/28/20 20:59 Ondansetron HCl (Zofran) 4 mg Q6H PRN IVP Nausea & Vomiting 07/29/20 17:00 08/28/20 16:59 Piperacillin Sod/ Tazobactam Sod 3.375 gm/Sodium Chloride 110 ml @ 27.5 mls/hr EVERY 8 HOURS IVPB 07/29/20 22:00 08/03/20 21:59 07/31/20 14:48 Polyethylene Glycol (Miralax) 17 gm HSPRN PRN ORAL Constipation 07/29/20 21:00 08/28/20 20:59 Potassium Chloride (K-Dur) 20 meq DAILY ORAL 07/30/20 09:00 10/28/20 08:59 07/31/20 09:21 Topiramate (Topamax) 100 mg TWICE A DAY ORAL 07/29/20 21:00 08/28/20 20:59 07/31/20 09:21 Zolpidem Tartrate (Ambien) 5 mg BEDTIME PRN ORAL Insomnia 07/29/20 19:30 08/05/20 19:29 07/30/20 23:05 Michael Velasco MD Jul 31, 2020 16:21
[2020-07-31] MEDS ORDERED: Vancomycin 1.25gm/Ns 275 ML IVPB ONE ×2 (18:00)
--- NOTE | 2020-07-31 18:45 | Consultation ---
DATE OF CONSULTATION: 07/31/2020 INFECTIOUS DISEASE CONSULTATION CONSULTING PHYSICIAN: Michael Velasco MD. ATTENDING PHYSICIAN: Mahad Dejesus MD. REFERRING PHYSICIAN: Rafiq Rodriguez MD. REASON FOR CONSULTATION: Possible abdominal wall wound infection and abdominal wall wound dehiscence. CHIEF COMPLAINT: The patient's chief complaint coming into the hospital is abdominal wall wound dehiscence and possible infection. HISTORY OF PRESENT ILLNESS: This is a very pleasant 74-year-old female who has a history of nonhealing surgical wound. The patient initially had a colectomy and had a colovesicular fistula months ago. She did well postoperatively and was discharged. The patient presented to the clinic with a seroma and was opened up and it has been nonhealing. The patient developed a subcutaneous fistula. It looks like a drain was placed also and the patient was stable, had serous drainage. The patient then became, I believe per the records, noncompliant and had foul-smelling dressing and was identified in the outpatient setting with a midline wound infection and wound progressively worsened. The patient was admitted to the [facility] for a wound abdominal wound exploration, washout and application of wound VAC. Infectious Disease consultation is requested for antibiotic management in this patient. The patient is currently on Zosyn. We will consider also adding vancomycin because of possibility of staph infection also. Again Infectious Disease consultation was requested for antibiotic management. Case was discussed with Dr. Rodriguez. MAR was noted. Orders were noted. Notes were reviewed. Cultures are pending at this time. The patient had surgery on 07/30/2020, which again was abdominal exploration, washout, and wound VAC. REVIEW OF SYSTEMS: CONSTITUTIONAL: She is non-Welsh speaking, but she has no fevers. HEAD AND NECK: No mention of head pain, neck pain, thrush, or dysphagia per the records. She has no head pain and neck pain. CARDIAC: No chest pain or palpitations. PULMONARY: No cough or congestion noted. GASTROINTESTINAL: She has what looks like abdominal discomfort after surgery. GENITOURINARY: She has no Wooten. No CVA tenderness. SKIN: No rash. EXTREMITY: No extremity pain. NEUROLOGIC: No seizures. Generalized fatigue. No focal weakness. No seizure activity. PAST MEDICAL HISTORY: The patient has a past medical history of hypothyroidism, hypertension, seizures, colovesical fistula, history of colon resection in 2001, history of colectomy with fistula, history of nonhealing wound, seizure disorder, dyslipidemia, hyperlipidemia, hypertension, again colectomy. Colovesical fistula as discussed. ALLERGIES: The patient has no known drug allergies. No antibiotic allergies. SOCIAL HISTORY: Negative for smoking, alcohol, or drug abuse. FAMILY HISTORY: Noncontributory. Negative for tuberculosis or cancer. MEDICATIONS: Upon reviewing the MAR she is on following medications, on Lipitor, diphenhydramine, hydrocodone, potassium, levothyroxine, and Zosyn. I am going to add vancomycin pending cultures. She is on heparin. She is on topiramate, levetiracetam, clonazepam, magnesium hydroxide, bisacodyl, zolpidem, hydrocodone, and Zofran. Outside medications noted and reconciliated. PHYSICAL EXAMINATION: VITAL SIGNS: Temperature is 98.7, pulse rate 74, respiratory rate 16, blood pressure 149/80. Saturation 97% on room air. GENERAL: The patient is alert, responsive, in no acute distress, oriented x3. HEAD AND NECK: No obvious icterus or thrush. Normocephalic. Neck is supple. HEART: Regular. No gallop or murmur. No friction rub. LUNGS: Clear bilaterally. No rhonchi or rales. No respiratory distress. ABDOMEN: Soft. Positive bowel sounds. Has wound VAC. SKIN: No rash. No central line. MUSCULOSKELETAL: No effusion. Legs are without cellulitis. PERIPHERAL VASCULAR: No cyanosis or gangrene. GENITOURINARY: No Wooten. LINE SITES: Without phlebitis. NEUROLOGIC: Alert, responsive. Nonfocal. She is alert and oriented. LABORATORY DATA: White count 6.9, hemoglobin 13.4. Creatinine is 0.9. COVID nasopharyngeal testing is negative. Cultures from the surgery, the wound culture is pending. ASSESSMENT AND PLAN: 1. The patient has what looks like abdominal wall wound infection. The patient has history of colectomy and colovesical fistula, nonhealing wound. The patient is status post abdominal wound exploration, washout, and wound VAC. At this time, we will continue Zosyn. Because of the complicated long history of nonhealing wound, we will also add vancomycin for MRSA coverage. Continue vancomycin and Zosyn for abdominal wall wound infection. Check wound culture post surgery. Continue wound care per Surgery and continue wound VAC. Again, the patient with abdominal wound exploration, washout for possible abdominal wall wound infection, nonhealing wound. 2. The patient has history of hypertension. Blood pressure treatment per primary care team. 3. Hypothyroidism. 4. Thyroid supplementation. 5. Dyslipidemia. 6. Seizures. 7. History of colovesical fistula. 8. History of colon resection. 9. History of colectomy and fistula. 10. Continue treatment per primary consultants. 11. Wound care per Surgery. 12. No known drug allergies. 13. Social history is negative. 14. Family history is noncontributory. 15. MAR was noted. 16. Case was discussed with RN. 17. Case discussed with the patient and her daughter. 18. Case was discussed with Dr. Rodriguez. Thank you for this consultation. I will follow with you. Michael Velasco M.D. DR: HEBER JOB#: [id number] CC:
[2020-07-31 20:00] VITALS: BP 134/78
[2020-07-31] MEDS: Atorvastatin 20mg tab ORAL SCH (22:00)
[2020-07-31] MEDS: clonazePAM 0.5mg tab ORAL PRN (22:03)
[2020-07-31] MEDS: Zolpidem 5mg tab ORAL PRN (22:56)
[2020-08-01] VITALS: BP 144/74
[2020-08-01 04:00] VITALS: BP 145/81
[2020-08-01] MEDS: Piperacillin/Tazobactam 3.375 GM in NS 110 ML IVPB SCH ×3 (05:52→22:48)
[2020-08-01] MEDS: Heparin 5000 units/ml inj SUBQ SCH ×3 (05:53→22:51)
[2020-08-01 07:11] LABS: BASOPHILS % (AUTO) 0.8 % (0.0-2.0); EOSINOPHILS % (AUTO) 1.4 % (0.0-3.0); HEMATOCRIT 42.1 % (37.0-47.0); HEMOGLOBIN 13.8 G/DL (12.0-16.0); LYMPHOCYTES % (AUTO) 29.5 % (20.0-45.0); MEAN CORPUSCULAR VOLUME 87 FL (80-99); MONOCYTES % (AUTO) 8.9 % (1.0-10.0); NEUTROPHILS % (AUTO) 59.3 % (45.0-75.0); PLATELET COUNT 278 K/UL (150-450); RED BLOOD COUNT 4.82 M/UL (4.20-5.40); RED CELL DISTRIBUTION WIDTH 14.6 % (11.6-14.8); WHITE BLOOD COUNT 6.4 K/UL (4.8-10.8)
[2020-08-01 07:19] LABS: ANION GAP 10 mmol/L (5-15); BLOOD UREA NITROGEN 11 mg/dL (7-18); CARBON DIOXIDE 22 MMOL/L (21-32); CHLORIDE 110 MMOL/L (98-107); CREATININE 0.9 MG/DL (0.55-1.30); POTASSIUM 3.9 MMOL/L (3.5-5.1); SODIUM 142 MMOL/L (136-145)
[2020-08-01 08:00] VITALS: BP 133/83
[2020-08-01] MEDS: Topiramate 100mg tab ORAL SCH ×2 (08:37→17:56)
[2020-08-01] MEDS: Docusate 100mg cap ORAL SCH ×3 (08:38→18:00)
--- NOTE | 2020-08-01 09:55 | General Progress Note ---
Subjective Date patient seen: Aug 01, 2020 ROS Limited/Unobtainable: No Constitutional: Denies: no symptoms, chills, diaphoresis, fever, malaise, weakness, other HEENT: Denies: no symptoms, eye pain, blurred vision, tearing, double vision, ear pain, ear discharge, nose pain, nose congestion, throat pain, throat swelling, mouth pain, mouth swelling, other Cardiovascular: Denies: no symptoms, chest pain, edema, irregular heart rate, lightheadedness, palpitations, syncope, other Respiratory: Denies: no symptoms, cough, orthopnea, shortness of breath, SOB with excertion, SOB at rest, sputum, stridor, wheezing, other Gastrointestinal/Abdominal: Denies: no symptoms, abdomen distended, abdominal pain, black stools, tarry stools, blood in stool, constipated, diarrhea, difficulty swallowing, nausea, poor appetite, poor fluid intake, rectal bleeding, vomiting, other Neurologic/Psychiatric: Denies: no symptoms, anxiety, depressed, emotional problems, headache, numbness, paresthesia, pre-existing deficit, seizure, tingling, tremors, weakness, other Hematologic/Lymphatic: Denies: no symptoms, anemia, easy bleeding, easy bruising, other Allergies: Coded Allergies: No Known Allergies (Unverified , 03/10/20) Subjective pod#2 AFVSS doing well wound vac in place and draining ambulating. Denies n/v discharge planning Objective Last 24 Hour Vital Signs Date Time Temp Pulse Resp B/P (MAP) Pulse Ox O2 Delivery O2 Flow Rate FiO2 08/01/20 08:00 98.1 87 18 133/83 (100) 97 08/01/20 04:00 98.1 71 20 145/81 (102) 98 08/01/20 00:00 98.2 67 20 144/74 (97) 97 07/31/20 21:00 Room Air 07/31/20 20:00 98.0 70 18 134/78 (96) 97 07/31/20 16:00 98.7 74 16 149/80 (103) 97 07/31/20 12:00 97.2 76 16 129/71 (90) 97 Intake and Output 07/31/20 08/01/20 19:00 07:00 Intake Total 810 ml 450 ml Output Total 0 ml 0 ml Balance 810 ml 450 ml Intake Oral 700 ml 450 ml IV Total 110 ml Drainage Total 0 ml 0 ml # Voids 5 4 # Bowel Movements 2 Laboratory Tests 08/01/20 06:30: White Blood Count 6.4, Red Blood Count 4.82, Hemoglobin 13.8, Hematocrit 42.1, Mean Corpuscular Volume 87, Mean Corpuscular Hemoglobin 28.7, Mean Corpuscular Hemoglobin Concent 32.8, Red Cell Distribution Width 14.6, Platelet Count 278, Mean Platelet Volume 7.9, Neutrophils (%) (Auto) 59.3, Lymphocytes (%) (Auto) 29.5, Monocytes (%) (Auto) 8.9, Eosinophils (%) (Auto) 1.4, Basophils (%) (Auto) 0.8, Sodium Level 142, Potassium Level 3.9, Chloride Level 110H, Carbon Dioxide Level 22, Anion Gap 10, Blood Urea Nitrogen 11, Creatinine 0.9, Estimat Glomerular Filtration Rate > 60, Glucose Level 112H, Calcium Level 9.0 Height (Feet): 5 Height (Inches): 5.00 Weight (Pounds): 180 Assessment/Plan Status: stable Assessment/Plan: ASSESSMENT: 1. Abdominal wall wound infection with wound dehiscence. pod # 2 s/p wash out and wound vac placement 2. Hypertension. 3. Seizure disorder. 4. Hypothyroidism. 5. History of colovesicular fistula, status post resection 6.HLD PLAN: 1. surgical unit. 2. follow up with Dr. Rodriguez 3. follow up with the cultures--> Wound culture growing staph aureus 4. Code status is Full Code. 5. DVT prophylaxis is SCD. 6. continue broad spectrum antibiotics with Zosyn . Id on board 7. continue levothyroxine 8.continue keppra , clonazepam 9.continue atorvastatin I spent 40 minutes on this encounter. Greater than 50% spent on counselling and care coordination time of note does not reflect time of encounter Adilson Tsang M.D. Aug 01, 2020 09:55
[2020-08-01 12:00] VITALS: BP 140/73
[2020-08-01 15:54] VITALS: BP 136/73
[2020-08-01] MEDS: Vancomycin 750mg/NS 275ml IVPB SCH ×2 (18:30)
[2020-08-01 20:00] VITALS: BP 125/75
[2020-08-01] MEDS: clonazePAM 0.5mg tab ORAL PRN (21:30)
[2020-08-01] MEDS: Zolpidem 5mg tab ORAL PRN (22:52)
[2020-08-02 04:00] VITALS: BP 125/79
[2020-08-02] MEDS: Piperacillin/Tazobactam 3.375 GM in NS 110 ML IVPB SCH ×2 (05:23→14:46)
[2020-08-02] MEDS: Heparin 5000 units/ml inj SUBQ SCH ×3 (05:24→21:43)
[2020-08-02 08:00] VITALS: BP 137/71
[2020-08-02] MEDS: Docusate 100mg cap ORAL SCH ×2 (09:00→18:00)
[2020-08-02] MEDS: Topiramate 100mg tab ORAL SCH ×2 (09:04→18:46)
--- NOTE | 2020-08-02 10:18 | General Progress Note ---
Subjective Date patient seen: Aug 02, 2020 ROS Limited/Unobtainable: No Constitutional: Denies: no symptoms, chills, diaphoresis, fever, malaise, weakness, other HEENT: Denies: no symptoms, eye pain, blurred vision, tearing, double vision, ear pain, ear discharge, nose pain, nose congestion, throat pain, throat swelling, mouth pain, mouth swelling, other Cardiovascular: Denies: no symptoms, chest pain, edema, irregular heart rate, lightheadedness, palpitations, syncope, other Respiratory: Denies: no symptoms, cough, orthopnea, shortness of breath, SOB with excertion, SOB at rest, sputum, stridor, wheezing, other Gastrointestinal/Abdominal: Denies: no symptoms, abdomen distended, abdominal pain, black stools, tarry stools, blood in stool, constipated, diarrhea, difficulty swallowing, nausea, poor appetite, poor fluid intake, rectal bleeding, vomiting, other Genitourinary: Denies: no symptoms, burning, discharge, frequency, flank pain, hematuria, incontinence, pain, urgency, other Neurologic/Psychiatric: Denies: no symptoms, anxiety, depressed, emotional pr oblems, headache, numbness, paresthesia, pre-existing deficit, seizure, tingling, tremors, weakness, other Endocrine: Denies: no symptoms, excessive sweating, flushing, intolerance to cold, intolerance to heat, increased hunger, increased thirst, increased urine, unexplained weight gain, unexplained weight loss, other Hematologic/Lymphatic: Denies: no symptoms, anemia, easy bleeding, easy bruising, other Allergies: Coded Allergies: No Known Allergies (Unverified , 03/10/20) Subjective pod#3 AFVSS doing well wound vac in place and draining ambulating. Denies n/v discharge planning: Waiting for wound vac supplies to arrive Wound cultures: MRSA Objective Last 24 Hour Vital Signs Date Time Temp Pulse Resp B/P (MAP) Pulse Ox O2 Delivery O2 Flow Rate FiO2 08/02/20 08:10 Room Air 08/02/20 08:00 97.6 71 16 137/71 (93) 98 08/02/20 04:00 97.9 67 17 125/79 (94) 99 08/01/20 21:00 Room Air 08/01/20 20:00 98.1 71 16 125/75 (92) 98 08/01/20 15:54 97.8 78 18 136/73 (94) 98 08/01/20 12:00 97.2 76 18 140/73 (95) 97 Intake and Output 08/01/20 08/02/20 19:00 07:00 Intake Total 600 ml 480 ml Output Total 0 ml 40 ml Balance 600 ml 440 ml Intake Oral 600 ml 480 ml Drainage Total 0 ml 40 ml # Voids 4 3 Height (Feet): 5 Height (Inches): 5.00 Weight (Pounds): 180 Assessment/Plan Status: stable Assessment/Plan: ASSESSMENT: 1. Abdominal wall wound infection with wound dehiscence. pod # 3 s/p wash out and wound vac placement 2. Hypertension. 3. Seizure disorder. 4. Hypothyroidism. 5. History of colovesicular fistula, status post resection 6.HLD PLAN: 1. surgical unit. 2. follow up with Dr. Rodriguez 3. follow up with the cultures--> Wound culture growing MRSA 4. Code status is Full Code. 5. DVT prophylaxis is SCD. 6. continue broad spectrum antibiotics with Zosyn and Vancomycin . Id on board 7. continue levothyroxine 8.continue keppra , clonazepam 9.continue atorvastatin Disposition: Waiting for wound vac supplies I spent 40 minutes on this encounter. Greater than 50% spent on counselling and care coordination time of note does not reflect time of encounter Adilson Tsang M.D. Aug 02, 2020 10:18
[2020-08-02 12:00] VITALS: BP 124/69
[2020-08-02 16:00] VITALS: BP 140/76
[2020-08-02] MEDS ORDERED: Tubing IV Secondary IV ONE (16:01)
[2020-08-02] MEDS ORDERED: NS 275ml ONE (16:01)
--- NOTE | 2020-08-02 16:06 | Surgery Progress Note ---
Surgery Progress Note Subjective Procedure Performed abdominal wound washout 13cm x 5cm x 4cm wound vac application Additional Comments doing well feels well vac okay micro noted abx pending supplies for d/c Objective Last 24 Hour Vital Signs Date Time Temp Pulse Resp B/P (MAP) Pulse Ox O2 Delivery O2 Flow Rate FiO2 08/02/20 12:00 98.1 77 16 124/69 (87) 98 08/02/20 08:10 Room Air 08/02/20 08:00 97.6 71 16 137/71 (93) 98 08/02/20 04:00 97.9 67 17 125/79 (94) 99 08/01/20 21:00 Room Air 08/01/20 20:00 98.1 71 16 125/75 (92) 98 I&O Intake and Output 08/01/20 08/02/20 18:59 06:59 Intake Total 600 ml 480 ml Output Total 0 ml 40 ml Balance 600 ml 440 ml Intake Oral 600 ml 480 ml Drainage Total 0 ml 40 ml # Voids 4 3 Plan Problems: (1) Postoperative wound dehiscence Assessment & Plan: failed outpatient management iv abx npo p mn or for washout and vac placement consent thank you (2) Postoperative wound cellulitis (3) Postoperative wound infection (4) Colonic fistula (5) Seizure disorder (6) Hypertension (7) History of hypertension Rafiq Rodriguez Aug 02, 2020 16:06
[2020-08-02] MEDS: Vancomycin 750mg/NS 275ml IVPB SCH ×2 (19:14)
--- NOTE | 2020-08-02 19:36 | Infectious Diseases Prog Note ---
Assessment/Plan Assessment/Plan ASSESSMENT AND PLAN: 1. mrsa abdominal wall wound infection, s/p washout, wound VAC history of colectomy and colovesical fistula, nonhealing wound - vancomycin - day # 3 - discontinue zosyn - wound care per surgery - monitor labs and creatinine 2. The patient has history of hypertension. Blood pressure treatment per primary care team. 3. Hypothyroidism. 4. Thyroid supplementation. 5. Dyslipidemia. 6. Seizures. 7. History of colovesical fistula. 8. History of colon resection. 9. History of colectomy and fistula. 10. Continue treatment per primary consultants. 11. Wound care per Surgery. 12. No known drug allergies. 13. Social history is negative. 14. Family history is noncontributory. 15. MAR was noted. 16. Case was discussed with RN. 17. Case discussed with the patient and her daughter. 18. Case was discussed with Dr. Rodriguez. Subjective Constitutional: Reports: fatigue; Denies: fever HEENT: Denies: congestion Respiratory: Denies: shortness of breath Cardiovascular: Denies: chest pain Gastrointestinal/Abdominal: Denies: nausea, vomiting, diarrhea Genitourinary: Reports: other - no miller Neurologic: Denies: headache Psychiatric: Denies: depression Skin: Denies: rash Hematologic: Denies: bleeding Musculoskeletal: Denies: pain Allergies: Coded Allergies: No Known Allergies (Unverified , 03/10/20) Objective Last 24 Hour Vital Signs Date Time Temp Pulse Resp B/P (MAP) Pulse Ox O2 Delivery O2 Flow Rate FiO2 08/02/20 16:00 97.9 79 16 140/76 (97) 99 08/02/20 12:00 98.1 77 16 124/69 (87) 98 08/02/20 08:10 Room Air 08/02/20 08:00 97.6 71 16 137/71 (93) 98 08/02/20 04:00 97.9 67 17 125/79 (94) 99 08/01/20 21:00 Room Air 08/01/20 20:00 98.1 71 16 125/75 (92) 98 Height (Feet): 5 Height (Inches): 5.00 Weight (Pounds): 180 General Appearance: no acute distress HEENT: normocephalic, atraumatic, anicteric, mucous membranes moist Respiratory/Chest: lungs clear, normal breath sounds, no respiratory distress, no accessory muscle use Cardiovascular: normal rate, regular rhythm, no gallop/murmur, no JVD Abdomen: normal bowel sounds, soft, non tender, no organomegaly, non distended Genitourinary: other - no miller Extremities: no cyanosis Skin: no rash, other - + wound vac abdominal wound Neurologic/Psychiatric: [employer] II-XII grossly normal, alert, oriented x 3, responsive Lymphatic: no neck adenopathy Musculoskeletal: no effusion imaging - none Microbiology Date/Time Source Procedure Growth Status 07/30/20 11:30 Abdominal Incision Gram Stain - Final Complete 07/30/20 11:30 Aerobic Culture - Final Staphylococcus Aureus - Mrsa Complete 07/30/20 11:30 Abdominal Incision Anaerobic Culture - Final NO ANAEROBES ISOLATED Complete 07/29/20 22:30 Nasal Nares Right MRSA Culture - Final NO METHICILLIN RESISTANT STAPH AUREUS... Complete Labs Test 08/01/20 06:30 White Blood Count 6.4 K/UL (4.8-10.8) Red Blood Count 4.82 M/UL (4.20-5.40) Hemoglobin 13.8 G/DL (12.0-16.0) Hematocrit 42.1 % (37.0-47.0) Mean Corpuscular Volume 87 FL (80-99) Mean Corpuscular Hemoglobin 28.7 PG (27.0-31.0) Mean Corpuscular Hemoglobin Concent 32.8 G/DL (32.0-36.0) Red Cell Distribution Width 14.6 % (11.6-14.8) Platelet Count 278 K/UL (150-450) Mean Platelet Volume 7.9 FL (6.5-10.1) Neutrophils (%) (Auto) 59.3 % (45.0-75.0) Lymphocytes (%) (Auto) 29.5 % (20.0-45.0) Monocytes (%) (Auto) 8.9 % (1.0-10.0) Eosinophils (%) (Auto) 1.4 % (0.0-3.0) Basophils (%) (Auto) 0.8 % (0.0-2.0) Sodium Level 142 MMOL/L (136-145) Potassium Level 3.9 MMOL/L (3.5-5.1) Chloride Level 110 MMOL/L (98-107) Carbon Dioxide Level 22 MMOL/L (21-32) Anion Gap 10 mmol/L (5-15) Blood Urea Nitrogen 11 mg/dL (7-18) Creatinine 0.9 MG/DL (0.55-1.30) Estimat Glomerular Filtration Rate > 60 mL/min (>60) Glucose Level 112 MG/DL (74-106) Calcium Level 9.0 MG/DL (8.5-10.1) Current Medications Medications (Trade) Dose Ordered Sig/Dorian Route PRN Reason Start Time Stop Time Status Last Admin Dose Admin Acetaminophen/ Hydrocodone Bitart ([place] 10/325) 1 tab Q4H PRN ORAL Severe Pain (Pain Scale 7-10) 07/30/20 10:30 08/06/20 10:29 Acetaminophen/ Hydrocodone Bitart ([place] 5/325) 1 tab Q4H PRN ORAL Mild Pain (Pain Scale 1-3) 07/29/20 19:30 08/05/20 19:29 07/29/20 22:31 Acetaminophen/ Hydrocodone Bitart ([place] 5/325) 1 tab Q4H PRN ORAL Moderate Pain (Pain Scale 4-6) 07/30/20 10:30 08/06/20 10:29 Al Hydroxide/Mg Hydroxide (Mylanta) 15 ml Q6H PRN ORAL DYSPEPSIA 07/30/20 10:30 08/29/20 10:29 Albuterol/ Ipratropium (Albuterol/ Ipratropium) 3 ml QIDPRN PRN HHN Shortness of Breath 07/29/20 17:00 08/03/20 16:59 Atorvastatin Calcium (Lipitor) 20 mg MON-MON-MON ORAL 07/31/20 21:00 10/27/20 20:59 07/31/20 22:00 Bisacodyl (Dulcolax) 10 mg HSPRN PRN RECTAL Constipation 07/29/20 21:00 10/27/20 20:59 Clonazepam (KlonoPIN) 0.5 mg Q6H PRN ORAL For Anxiety 07/29/20 21:00 08/05/20 20:59 08/01/20 21:30 Dextrose (Dextrose 50%) 25 ml Q30M PRN IV Hypoglycemia 07/29/20 17:00 10/27/20 16:59 Dextrose (Dextrose 50%) 50 ml Q30M PRN IV Hypoglycemia 07/29/20 17:00 10/27/20 16:59 Diphenhydramine HCl (Benadryl) 25 mg Q8H PRN ORAL Itching/Pruritis 07/30/20 10:30 08/29/20 10:29 Docusate Sodium (Colace) 100 mg TWICE A DAY ORAL 07/30/20 09:00 08/29/20 08:59 08/01/20 08:38 Heparin Sodium (Porcine) (Heparin 5000 units/ml) 5,000 units EVERY 8 HOURS SUBQ 07/29/20 22:00 09/12/20 21:59 08/02/20 14:48 Levetiracetam (Keppra) 1,000 mg BID ORAL 07/29/20 21:00 08/28/20 20:59 08/02/20 18:46 Levothyroxine Sodium (Synthroid) 100 mcg ACBREAKFAST ORAL 07/30/20 06:30 08/29/20 06:29 08/02/20 05:31 Magnesium Hydroxide (Mom) 30 ml HSPRN PRN ORAL Constipation 07/29/20 21:00 08/28/20 20:59 Ondansetron HCl (Zofran) 4 mg Q6H PRN IVP Nausea & Vomiting 07/29/20 17:00 08/28/20 16:59 Polyethylene Glycol (Miralax) 17 gm HSPRN PRN ORAL Constipation 07/29/20 21:00 08/28/20 20:59 07/31/20 22:41 Potassium Chloride (K-Dur) 20 meq DAILY ORAL 07/30/20 09:00 10/28/20 08:59 08/02/20 09:04 Topiramate (Topamax) 100 mg TWICE A DAY ORAL 07/29/20 21:00 08/28/20 20:59 08/02/20 18:46 Vancomycin HCl (Vanco pharmacy to dose) 1 ea DAILY PRN MISC Per rx protocol 07/31/20 17:00 08/30/20 16:59 Vancomycin HCl 750 mg/Sodium Chloride 275 ml @ 183.333 mls/hr Q24H IVPB 08/01/20 18:00 08/06/20 17:59 08/02/20 19:14 Zolpidem Tartrate (Ambien) 5 mg BEDTIME PRN ORAL Insomnia 07/29/20 19:30 08/05/20 19:29 08/01/20 22:52 Michael Velasco MD Aug 02, 2020 19:36
[2020-08-02 20:00] VITALS: BP 144/75
[2020-08-02] MEDS: clonazePAM 0.5mg tab ORAL PRN (21:43)
[2020-08-03 04:00] VITALS: BP 138/80
[2020-08-03] MEDS: Heparin 5000 units/ml inj SUBQ SCH ×3 (05:11→21:11)
[2020-08-03 05:59] LABS: BASOPHILS % (AUTO) 1.8 % (0.0-2.0); EOSINOPHILS % (AUTO) 2.5 % (0.0-3.0); HEMATOCRIT 46.3 % (37.0-47.0); HEMOGLOBIN 14.5 G/DL (12.0-16.0); LYMPHOCYTES % (AUTO) 39.1 % (20.0-45.0); MEAN CORPUSCULAR VOLUME 92 FL (80-99); MONOCYTES % (AUTO) 9.5 % (1.0-10.0); NEUTROPHILS % (AUTO) 47.1 % (45.0-75.0); PLATELET COUNT 234 K/UL (150-450); RED BLOOD COUNT 5.01 M/UL (4.20-5.40); RED CELL DISTRIBUTION WIDTH 14.7 % (11.6-14.8); WHITE BLOOD COUNT 4.6 K/UL (4.8-10.8)
[2020-08-03 06:12] LABS: ANION GAP 6 mmol/L (5-15); BLOOD UREA NITROGEN 17 mg/dL (7-18); CALCIUM 9.1 MG/DL (8.5-10.1); CARBON DIOXIDE 25 MMOL/L (21-32); CHLORIDE 110 MMOL/L (98-107); CREATININE 0.7 MG/DL (0.55-1.30); POTASSIUM 3.7 MMOL/L (3.5-5.1); SODIUM 141 MMOL/L (136-145)
[2020-08-03 08:00] VITALS: BP 125/68
[2020-08-03] MEDS: Docusate 100mg cap ORAL SCH ×2 (08:09→18:00)
[2020-08-03] MEDS: Topiramate 100mg tab ORAL SCH ×2 (08:09→17:59)
--- NOTE | 2020-08-03 08:50 | General Progress Note ---
Subjective Date patient seen: Aug 03, 2020 ROS Limited/Unobtainable: No Constitutional: Denies: no symptoms, chills, diaphoresis, fever, malaise, weakness, other HEENT: Denies: no symptoms, eye pain, blurred vision, tearing, double vision, ear pain, ear discharge, nose pain, nose congestion, throat pain, throat swelling, mouth pain, mouth swelling, other Cardiovascular: Denies: no symptoms, chest pain, edema, irregular heart rate, lightheadedness, palpitations, syncope, other Respiratory: Denies: no symptoms, cough, orthopnea, shortness of breath, SOB with excertion, SOB at rest, sputum, stridor, wheezing, other Gastrointestinal/Abdominal: Denies: no symptoms, abdomen distended, abdominal pain, black stools, tarry stools, blood in stool, constipated, diarrhea, difficulty swallowing, nausea, poor appetite, poor fluid intake, rectal bleeding, vomiting, other Genitourinary: Denies: no symptoms, burning, discharge, frequency, flank pain, hematuria, incontinence, pain, urgency, other Neurologic/Psychiatric: Denies: no symptoms, anxiety, depressed, emotional pr oblems, headache, numbness, paresthesia, pre-existing deficit, seizure, tingling, tremors, weakness, other Endocrine: Denies: no symptoms, excessive sweating, flushing, intolerance to cold, intolerance to heat, increased hunger, increased thirst, increased urine, unexplained weight gain, unexplained weight loss, other Hematologic/Lymphatic: Denies: no symptoms, anemia, easy bleeding, easy bruising, other Allergies: Coded Allergies: No Known Allergies (Unverified , 03/10/20) Subjective pod#4 AFVSS doing well wound vac in place and draining ambulating. Denies n/v discharge planning: Waiting for wound vac supplies to arrive Wound cultures: MRSA Objective Last 24 Hour Vital Signs Date Time Temp Pulse Resp B/P (MAP) Pulse Ox O2 Delivery O2 Flow Rate FiO2 08/03/20 08:00 97.4 77 18 125/68 (87) 97 08/03/20 04:00 98.1 71 18 138/80 (99) 98 08/02/20 21:00 Room Air 08/02/20 20:00 97.4 65 17 144/75 (98) 99 12/6/20 16:00 97.9 79 16 140/76 (97) 99 08/02/20 12:00 98.1 77 16 124/69 (87) 98 Intake and Output 08/02/20 08/03/20 19:00 07:00 Intake Total 700 ml 240 ml Output Total 0 ml 20 ml Balance 700 ml 220 ml Intake Oral 700 ml 240 ml Drainage Total 0 ml 20 ml # Voids 4 2 Laboratory Tests 08/03/20 04:50: White Blood Count 4.6L, Red Blood Count 5.01, Hemoglobin 14.5, Hematocrit 46.3, Mean Corpuscular Volume 92, Mean Corpuscular Hemoglobin 29.0, Mean Corpuscular Hemoglobin Concent 31.4L, Red Cell Distribution Width 14.7, Platelet Count 234, Mean Platelet Volume 8.0, Neutrophils (%) (Auto) 47.1, Lymphocytes (%) (Auto) 39.1, Monocytes (%) (Auto) 9.5, Eosinophils (%) (Auto) 2.5, Basophils (%) (Auto) 1.8, Sodium Level 141, Potassium Level 3.7, Chloride Level 110H, Carbon Dioxide Level 25, Anion Gap 6, Blood Urea Nitrogen 17, Creatinine 0.7, Estimat Glomerular Filtration Rate > 60, Glucose Level 91, Calcium Level 9.1 Height (Feet): 5 Height (Inches): 5.00 Weight (Pounds): 180 Assessment/Plan Status: stable Assessment/Plan: ASSESSMENT: 1. Abdominal wall wound infection with wound dehiscence. pod # 4 s/p wash out and wound vac placement 2. Hypertension. 3. Seizure disorder. 4. Hypothyroidism. 5. History of colovesicular fistula, status post resection 6.HLD PLAN: 1. surgical unit. 2. follow up with Dr. Rodriguez 3. follow up with the cultures--> Wound culture growing MRSA 4. Code status is Full Code. 5. DVT prophylaxis is SCD. 6. s/p Zosyn, continue Vancomycin day#4 7. continue levothyroxine 8.continue keppra , clonazepam 9.continue atorvastatin Disposition: Waiting for wound vac supplies I spent 40 minutes on this encounter. Greater than 50% spent on counselling and care coordination time of note does not reflect time of encounter Adilson Tsang M.D. Aug 03, 2020 08:50
[2020-08-03 12:00] VITALS: BP 132/66
[2020-08-03 16:00] VITALS: BP 135/80
--- NOTE | 2020-08-03 16:58 | Surgery Progress Note ---
Surgery Progress Note Subjective Procedure Performed abdominal wound washout 13cm x 5cm x 4cm wound vac application Additional Comments wound vac changed pending dressings no n/v feels well pain from site improving labs okay Objective Last 24 Hour Vital Signs Date Time Temp Pulse Resp B/P (MAP) Pulse Ox O2 Delivery O2 Flow Rate FiO2 08/03/20 12:00 97.9 70 18 132/66 (88) 97 08/03/20 09:00 Room Air 08/03/20 08:00 97.4 77 18 125/68 (87) 97 08/03/20 04:00 98.1 71 18 138/80 (99) 98 08/02/20 21:00 Room Air 08/02/20 20:00 97.4 65 17 144/75 (98) 99 I&O Intake and Output 08/02/20 08/03/20 19:00 07:00 Intake Total 700 ml 240 ml Output Total 0 ml 20 ml Balance 700 ml 220 ml Intake Oral 700 ml 240 ml Drainage Total 0 ml 20 ml # Voids 4 2 Drains: wound vac Laboratory Tests Test 08/03/20 04:50 White Blood Count 4.6 K/UL (4.8-10.8) L Red Blood Count 5.01 M/UL (4.20-5.40) Hemoglobin 14.5 G/DL (12.0-16.0) Hematocrit 46.3 % (37.0-47.0) Mean Corpuscular Volume 92 FL (80-99) Mean Corpuscular Hemoglobin 29.0 PG (27.0-31.0) Mean Corpuscular Hemoglobin Concent 31.4 G/DL (32.0-36.0) L Red Cell Distribution Width 14.7 % (11.6-14.8) Platelet Count 234 K/UL (150-450) Mean Platelet Volume 8.0 FL (6.5-10.1) Neutrophils (%) (Auto) 47.1 % (45.0-75.0) Lymphocytes (%) (Auto) 39.1 % (20.0-45.0) Monocytes (%) (Auto) 9.5 % (1.0-10.0) Eosinophils (%) (Auto) 2.5 % (0.0-3.0) Basophils (%) (Auto) 1.8 % (0.0-2.0) Sodium Level 141 MMOL/L (136-145) Potassium Level 3.7 MMOL/L (3.5-5.1) Chloride Level 110 MMOL/L (98-107) H Carbon Dioxide Level 25 MMOL/L (21-32) Anion Gap 6 mmol/L (5-15) Blood Urea Nitrogen 17 mg/dL (7-18) Creatinine 0.7 MG/DL (0.55-1.30) Estimat Glomerular Filtration Rate > 60 mL/min (>60) Glucose Level 91 MG/DL (74-106) Calcium Level 9.1 MG/DL (8.5-10.1) Plan Problems: (1) Postoperative wound dehiscence Assessment & Plan: failed outpatient management iv abx npo p mn or for washout and vac placement consent thank you (2) Postoperative wound cellulitis (3) Postoperative wound infection (4) Colonic fistula (5) Seizure disorder (6) Hypertension (7) History of hypertension Rafiq Rodriguez Aug 03, 2020 16:58
[2020-08-03] MEDS: Vancomycin 750mg/NS 275ml IVPB SCH ×4 (17:59→19:00)
[2020-08-03 20:00] VITALS: BP 124/69
[2020-08-03] MEDS: Atorvastatin 20mg tab ORAL SCH (21:10)
[2020-08-03] MEDS: clonazePAM 0.5mg tab ORAL PRN (21:11)
[2020-08-03] MEDS: Zolpidem 5mg tab ORAL PRN (22:12)
[2020-08-04] VITALS: BP 127/76
[2020-08-04] MEDS: Heparin 5000 units/ml inj SUBQ SCH (05:52)
[2020-08-04] MEDS: Vancomycin 750mg/NS 275ml IVPB SCH ×2 (06:39)
[2020-08-04 08:00] VITALS: BP 119/58
[2020-08-04] MEDS: Topiramate 100mg tab ORAL SCH (08:26)
[2020-08-04] MEDS: Docusate 100mg cap ORAL SCH (08:27)
[2020-08-04] MEDS ORDERED: BACTRIM-DS1 EA ORAL (11:31)
--- NOTE | 2020-08-08 20:56 | Discharge Summary ---
Discharge Summary Hospital Course Date of Admission Jul 29, 2020 at 16:33 Date of Discharge Aug 04, 2020 at 13:00 Admitting Diagnosis POST-OP COMPLICATION HPI Joyce Chavez is a 74 year old female who was admitted on Jul 29, 2020 at 16:33 for Post-Op Complication Hospital Course Patient with prior history of colovesicular fistula s/p colon resection in 2001 was admitted for abdominal wound dehiscence and poor wound healing despite weeks of outpatient wound care and non-compliance. Patient had a recent surgical revision and subsequently developed a midline wound infection. Given worsening infection she was admitted for a wound washout with wound vac placement. WC grew MRSA. She was treated with antibiotics and subsequently discharged with wound va c in place and Bactrim for 7d. HH was setup prior to dc. She is to f/u with surgery. Discharge Condition Upon Discharge: stable Discharge Vital Signs Last Vital Signs Date Time Temp Pulse Resp B/P (MAP) Pulse Ox O2 Delivery O2 Flow Rate FiO2 08/04/20 09:00 Room Air 08/04/20 08:00 97.7 71 18 119/58 (78) 97 07/30/20 10:45 6 Discharge Disposition Patient was discharged to home. Jessica Valdez M.D. Aug 08, 2020 20:56
== END 2020-08-04 13:00 | disposition home or self-care (01) | DRG 920 ==
LOC: EMR 16:16 → 3E 16:33 → EDBEDREQ 18:11
PROC: 3E10X8Z Irrigation of Skin and Mucous Membranes using Irrigating Substance (ICD-10-PCS; principal; 2020-07-30 09:30)
DX: T81.31XA Disruption of external operation (surgical) wound, not elsewhere classified, initial encounter (principal); T81.40XA Infection following a procedure, unspecified, initial encounter; L03.311 Cellulitis of abdominal wall; K63.2 Fistula of intestine; G40.909 Epilepsy, unspecified, not intractable, without status epilepticus; I10 Essential (primary) hypertension; E03.9 Hypothyroidism, unspecified; E78.5 Hyperlipidemia, unspecified; Y83.8 Other surgical procedures as the cause of abnormal reaction of the patient, or of later complication, without mention of misadventure at the time of the procedure; Z90.49 Acquired absence of other specified parts of digestive tract
CPT/HCPCS: 36415; 80048; 80053; 80202; 85025; 85610; 85651; 85730; 86140; 87070; 87075; 87081; 87181; 87205; 94003; 94150; 99285; J7030; J7620; J8499; U0002

== ENCOUNTER 2020-08-12 10:32 | Outpatient (RCR) | payer MEDICARE, OTHER ==
[~2020-08-12] VITALS: Ht 165.1 cm; Wt 90.7 kg
[~2020-08-12 10:32] MED LIST changes: +BACTRIM-DS1 EA ORAL; +LIPITOR20 MG ORAL
[2020-08-19] MEDS ORDERED: Lidocaine 4% Top Soln 50ml TOPIC ONE (13:00)
== END 2020-08-27 | disposition home or self-care (01) ==
LOC: WCC 10:32
DX: S31.105S Unspecified open wound of abdominal wall, periumbilic region without penetration into peritoneal cavity, sequela (principal); S31.104A Unspecified open wound of abdominal wall, left lower quadrant without penetration into peritoneal cavity, initial encounter; X58.XXXA Exposure to other specified factors, initial encounter; Y92.9 Unspecified place or not applicable; Z79.899 Other long term (current) drug therapy; G40.909 Epilepsy, unspecified, not intractable, without status epilepticus; E78.5 Hyperlipidemia, unspecified
CPT/HCPCS: 11043

== ENCOUNTER 2020-09-02 11:46 | Outpatient (RCR) | payer MEDICARE, OTHER ==
[~2020-09-02] VITALS: Ht 165.1 cm; Wt 90.7 kg
[2020-09-03] MEDS ORDERED: Lidocaine HCl 2% Jelly 6ml Tube TOPIC ONE (13:45)
== END 2020-09-27 | disposition home or self-care (01) ==
LOC: WCC 11:46
DX: S31.105S Unspecified open wound of abdominal wall, periumbilic region without penetration into peritoneal cavity, sequela (principal); S31.104A Unspecified open wound of abdominal wall, left lower quadrant without penetration into peritoneal cavity, initial encounter; X58.XXXA Exposure to other specified factors, initial encounter; Y92.9 Unspecified place or not applicable; G40.909 Epilepsy, unspecified, not intractable, without status epilepticus; E78.5 Hyperlipidemia, unspecified
CPT/HCPCS: 11043; 97605

== ENCOUNTER 2020-10-07 10:08 | Outpatient (RCR) | payer MEDICARE, OTHER | END 2020-10-25 | disposition home or self-care (01) | LOC: WCC 10:08 | DX: S31.105S Unspecified open wound of abdominal wall, periumbilic region without penetration into peritoneal cavity, sequela (principal); S31.104A Unspecified open wound of abdominal wall, left lower quadrant without penetration into peritoneal cavity, initial encounter; S31.109S Unspecified open wound of abdominal wall, unspecified quadrant without penetration into peritoneal cavity, sequela; X58.XXXA Exposure to other specified factors, initial encounter; Y92.9 Unspecified place or not applicable; G40.909 Epilepsy, unspecified, not intractable, without status epilepticus; E78.5 Hyperlipidemia, unspecified | CPT/HCPCS: 11043 ==